=== PATIENT | male | born 1945 | race Caucasian/White ===

== ENCOUNTER → 2016-06-29 11:25 | Outpatient (CLI) | payer BC, MEDICARE ==
[2016-04-09 07:15] VITALS: BMI 26.0
[~2016-06-29 11:25] MED LIST: AMBIEN10 MG PO; ASPIRIN325 MG PO; BETAPACE 80 MG80 MG PO; CELEBREX200 MG PO; CRESTOR10 MG PO; ELIQUIS2.5 MG PO; FISH OIL 1,0001 CA1 PO; FLOMAX0.4 MG PO; HALCION0.25 MG PO; LASIX INJ40 MG/4 ML PO; LASIX40 MG PO; LISINOPRIL5 MG PO; LOPRESSOR25 MG PO; LYRICA75 MG PO; MULTAQ400 MG PO; MULTIPLE VITAMI1 TA1 PO; NEURONTIN 300300 MG PO; NEURONTIN600 MG PO; NIASPAN500 MG PO; OMNICEF300 MG PO; OXY IR30 MG PO; OXYCONTIN20 MG PO; PLAVIX75 MG PO; PROAIR HFA8.5 GM INH; TRIAMTERENE-HCT1 TA1 PO; VESICARE5 MG PO; ZITHROMAX 500M500 MG PO; ZITHROMAX500 MG PO
== END | disposition home or self-care (01) ==
LOC: D.RAD 11:25
DX: R06.02 Shortness of breath (principal)

== ENCOUNTER 2016-07-16 11:26 | Outpatient (CLI) | payer BC, MEDICARE ==
[~2016-07-16] VITALS: Ht 198.1 cm; Wt 100.0 kg
--- NOTE | ~2016-07-16 | HEMODYNAMI ---
PATIENT:NOMI ANGELA MEDICAL RECORD: [id number] : 49 [id number] ADMISSION DATE: 07/16/16 Generatedon:07/17/201614:04 Patient name: NOMI ANGELA Patient #: [id number] SSN: [id number] : 1945 Date of study: 07/17/2016 Page: Of Hemodynamic Procedure Report Patient Data Patient Demographics Procedure consent was obtained First Name: NOMI Gender: Male Last Name: COREEN : 1945 Middle Initial: W Age: 71 year(s) Patient #: [id number] Race: SSN: [id number] Additional ID: [id number] Contact details [address]: [address] [place] [address] [address] State: [place] City: [place] Zip code: [address] Past Medical History History of disease Date Diagnosis Comments CAD Allergies Allergen Reaction Date Comments Reported Other allergy 01/03/2015 Daisy Rocha Admission Admission Data Admission Date: 07/16/2016 Admission Time: 11:26 Arrival Date: 07/16/2016 Arrival Time: 0:00 Admit Source: Other Room #: [facility]9 Height (in.): 78 BSA: 2.39 (m2) Height (cm.): 198.12 BMI: 26.35 (kg/m2) Weight (lbs.): 228 Weight (kg.): 103.42 Procedure Procedure Types Cath Procedure Diagnostic Procedure Procedure Description Procedure Date Procedure Date: 07/17/2016 Procedure Start Time: 0:00 Procedure Staff Name Function Gabe Aiken MD Performing Physician Tyson Aviles RT Scrub Dora Elizabeth RN Nurse Elizabeth Bolanos RT Monitor Rigo Joseph MD Performing Physician Procedure Medications Medication Administration Route Dosage Ancef (1Gm/50ml NS) I.V.P.B 1 g Hemodynamics Rest BSA: 2.39 (m2) O2 Consumption: Estimated: 276.77 (ml/min) O2 Consumption indexed : Estimated:115.8 (ml/min/m) Heart Rate: 70 (bpm) Snapshots Pre Cath Intra NCS Post Cath Vital Signs Time Heart Resp SPO2 NIBP Rhythm Pain Sedation Rate (ipm) (%) (mmHg) Status Level (bpm) 13:36:36 89 21 99 No Cuff NSR 0 (11) , 10(A) No pain 13:40:36 119 14 99 No Cuff NSR 0 (11) , 10(A) No pain 13:44:35 53 14 97 No Cuff NSR 0 (11) , 10(A) No pain 13:48:35 69 12 96 No Cuff NSR 0 (11) , 10(A) No pain 13:52:34 No Cuff NSR 0 (11) , 10(A) No pain 13:56:34 No Cuff NSR 0 (11) , 10(A) No pain 14:00:34 No Cuff NSR 0 (11) , 10(A) No pain Medications Time Medication Route Dose Verified Delivered Reason Notes Effective ness by by 13:43:30 Ancef I.V.P.B 1 g Gabe John used for (1Gm/50ml [facility] Ruben Elizabeth building contractor NS) Procedure Log Time Note 13:15:34 Procedure type changed to Cath procedure, Diagnostic procedure 13:15:43 Diagnostic Cath Status : Elective 13:16:41 Elizabeth Bolanos RT(R) sent for patient. Start room use. 13:16:43 Time tracking: Regular hours 13:16:48 Plan of Care:Hemodynamics will remain stable., Cardiac rhythm will remain stable., Comfort level will be maintained., Respiratory function will remain adequate., Patient/ family verbilizes understanding of procedure., Procedure tolerated without complication., Recovers from procedure without complications.. 13:16:58 Patient received from Med II to CCL 3 Alert and oriented. Tansferred to table in Supine position. 13:17:09 H&P Date Dictated: 07/17/2016 Within 30 days and on chart.. 13:17:31 Use device set Pacemaker Set 13:17:35 Mepilex Dressing opened to sterile field. 13:17:36 2.0 Ticron Multipack opened to sterile field. 13:17:36 3.0 Vicryl Multipack [id number] opened to sterile field. 13:17:37 3.0 Vicryl Single Pack [id number] opened to sterile field. 13:17:38 5.0 Monocryl PS2 Y495G opened to sterile field. 13:35:40 Warm blankets applied, and anuel hugger turned on for patient comfort. 13:35:41 Correct patient and procedure confirmed by team. 13:35:43 Signed procedure consent form obtained from patient. 13:35:44 ECG and BP/O2 sat monitors applied to patient. 13:35:45 Vital chart was started 13:35:47 Baseline sample Acquired. 13:35:50 Full Disclosure recording started 13:35:56 Family in waiting room. 13:35:58 Patient NPO since Midnight. 13:36:12 Is patient on blood thinner?No 13:37:24 Patient diabetic? No. 13:37:28 Snore? No 13:37:29 Sleep apnea? No 13:37:31 Deviated septum? No 13:37:33 Opens mouth fully? Yes 13:37:33 Sticks out tongue? Yes 13:37:39 Dentures? No ? 13:37:52 IV patent on arrival in left hand with 0.9% NaCl at [facility]. 13:38:02 Lab results completed and on chart. 13:38:11 Left chest area was prepped with chlora-prep and draped in sterile fashion 13:38:13 Alarms reviewed by R. N. 13:38:14 Sharps counted by scrub and verified by R.N. 13:38:15 Physician paged 13:43:30 Ancef (1Gm/50ml NS) 1 g I.V.P.B was administered by Dora Elizabeth RN; used for procedure; 13:52:08 Physician arrived 13:52:09 --------ALL STOP TIME OUT------ 13:52:11 Final Timeout: patient, procedure, and site verified with staff and physician. All members of the team are in agreement. 13:53:04 The patient's pacemaker was analyzed and the atrial lead was found to be working correctly. 13:54:[address] Aiken 13:56:44 Procedure and supply charges have been captured, reviewed, submitted and are correct. 14:00:27 Vital chart was stopped 14:00:29 See physician's report for complete and final results. 14:00:32 Report given to PCU. 14:00:37 Patient transfered to PCU with Bed. 14:00:44 End room use (Document Last) Device Usage Item Name Manufacture Quantity Catalog Hospital Part Current Minimal Lo t# / Number Charge Number Stock Stock Serial# Code Adryan Rahman 1 [id number] 5 Dressing [facility] 2.0 Ethicon 1 [id number] 026430 83867 045110 5 Ticron Multipack 3.0 Ethicon 1 [id number] 287231 506712 5 Vicryl Multipack [id number] 3.0 Ethicon 1 [id number] 674497 482667 5 Vicryl Single Pack [id number] 5.0 Ethicon 1 Y495G 062138 151986 754956 5 Monocryl PS2 Y495G Signature Audit [place] Stage Time Signature Unsigned Intra-Procedure 07/17/2016 Elizabeth Bolanos 2:04:41 PM RT(R) Signatures Monitor : Elizabeth Bolanos Signature : RT Date : Time : [place] [id number] [place] [id number]
--- NOTE | ~2016-07-16 | HEMODYNAMI ---
PATIENT:NOMI ANGELA MEDICAL RECORD: [id number] : 49 LOCATION:D.CAT ADMISSION DATE: 07/16/16 Generatedon:07/16/201615:24 Patient name: NOMI ANGELA Patient #: [id number] : 1945 Date of study: 07/16/2016 Page: Of Hemodynamic Procedure Report Patient Data Patient Demographics Procedure consent was obtained First Name: NOMI Gender: Male Last Name: COREEN : 1945 Middle Initial: W Age: 71 year(s) Patient #: [id number] Race: SSN: [id number] Additional ID: [id number] Contact details Address: [address] [place] [address] [address] State: [place] City: [place] Zip code: [address] Past Medical History History of disease Date Diagnosis Comments CAD Allergies Allergen Reaction Date Comments Reported Other allergy 01/03/2015 Daisy Rocha Admission Admission Data Admission Date: 07/16/2016 Admission Time: 11:26 Arrival Date: 07/16/2016 Arrival Time: 0:00 Admit Source: Other Height (in.): 78 BSA: 2.39 (m2) Height (cm.): 198.12 BMI: 26.35 (kg/m2) Weight (lbs.): 228 Weight (kg.): 103.42 Procedure Procedure Types Cath Procedure Diagnostic Procedure PPM/ICD PPM Dual Implant Procedure Description Procedure Date Procedure Date: 07/16/2016 Procedure Start Time: 14:48 Procedure End Time: 15:16 Procedure Staff Name Function Jorgito Murray RT Scrub Jazmin Ervin RT Scrub Dora Elizabeth RN Nurse Rigo Joseph MD Assisting physician Gabe Aiken MD Performing Physician Elizabeth Bolanos RT Monitor Procedure Data Cath Procedure Fluoroscopy Diagnostic fluoroscopy Total fluoroscopy Time: 1.5 time: 1.5 min min Diagnostic fluoroscopy Total fluoroscopy dose: 855 dose: 855 mGy mGy Estimated blood loss: 10 ml Procedure Complications No complications Procedure Medications Medication Administration Route Dosage Oxygen NC 2 l/min Ancef (1Gm/50ml NS) I.V.P.B 1 g Ancef Irrigation Topical 1 g (1gm/500ml NS) Lidocaine 1% with added to field 20 ml Epi Bupivacaine 0.5% S.Q. 10 ml Refer to Anesthesia Notes for Sedation Medications Hemodynamics Rest BSA: 2.39 (m2) O2 Consumption: Estimated: 259.85 (ml/min) O2 Consumption indexed : Estimated:108.72 (ml/min/m) Heart Rate: 51 (bpm) Snapshots Pre Cath Intra NCS Post Cath Vital Signs Time Heart Resp SPO2 etCO2 TA3saca Respiration NIBP (mmHg) Rhythm Pain Sedation Rate (ipm) (%) (mmHg) (mmHg) (CO2) (ipm) Status Level (bpm) 14:18:21 51 24 100 26 1.4 19 135/73(107) SB 0 (1 1) 10(A) , No pain 14:22:35 50 18 97 0 0 15 113/66(91) SB 0 (1 1) 10(A) , No pain 14:26:45 49 19 95 45.3 2.2 19 102/57(86) SB 0 (1 1) 9(A) , No pain 14:30:51 48 16 96 53.4 3.7 19 96/52(77) SB 0 (1 1) 9(A) , No pain 14:34:55 50 16 95 52.7 2.9 16 90/55(77) SB 0 (1 1) 9(A) , No pain 14:38:59 52 27 92 53.4 3.7 19 92/47(74) NSR 0 (1 1) 9(A) , No pain 14:43:02 49 48 96 43.8 5.2 18 89/49(68) NSR 0 (1 1) 9(A) , No pain 14:47:04 46 44 95 42.3 2.9 17 87/51(70) NSR 0 (1 1) 8(A) , No pain 14:52:01 46 17 96 45.3 11.8 17 115/68(97) NSR 0 (1 1) 8(A) , No pain 14:56:05 51 48 99 20.8 2.9 18 135/75(114) NSR 0 (1 1) 8(A) , No pain 15:00:12 89 39 99 19.3 2.9 18 118/85(95) NSR 0 (1 1) 8(A) , No pain 15:04:20 50 32 99 19.3 2.2 18 112/64(91) NSR 0 (1 1) 8(A) , No pain 15:08:26 67 18 99 20.7 2.2 18 119/67(93) NSR 0 (1 1) 8(A) , No pain 15:12:36 59 16 93 45.2 9.6 17 110/63(87) NSR 0 (1 1) 8(A) , No pain 15:16:42 60 14 98 25.9 2.2 18 112/64(88) NSR 0 (1 1) 10(A) , No pain 15:23:29 74 18 96 30.4 2.2 16 108/70(92) NSR 0 (1 1) 10(A) , No pain Medications Time Medication Route Dose Verified Delivered Reason Notes Effe ctiveness by by 14:15:37 Oxygen NC 2 Gabe John used for prn to l/min [facility] Ruben Elizabeth manager special events keep MD oxygen saturation above 92%. o2 will be turned off for cautery usage. 14:15:41 Ancef I.V.P.B 1 g Gabe John used for (1Gm/50ml [facility] Rub[facility] Elizabeth manager special events NS) 14:17:52 Ancef Topical 1 g Gabe John used for Irrigation [facility]. Ruben Elizabeth manager special events (1gm/500ml NS) 14:18:22 Lidocaine added 20 ml Gabe Sierra for local 1% with Epi to [facility]. Ruben Joseph MD anesthetic field 14:18:38 Bupivacaine S.Q. 10 ml Gabe Sierra for local 0.5% St. Ruben Joseph MD anesthetic 14:18:49 Refer to Gabe Anthony Anesthesia [facility]. Ruben Joseph MD anesthesia Notes for MD Sedation Medications Procedure Log Time Note 13:50:53 Admit Source: Other 13:51:02 Arrival Date: 07/16/2016 12:00:00 AM 13:51:29 Diagnostic Cath Status : Elective 13:52:50 Dora Elizabeth RN sent for patient. Start room use. 13:52:52 Time tracking: Regular hours 13:52:58 Plan of Care:Hemodynamics will remain stable., Cardiac rhythm will remain stable., Comfort level will be maintained., Respiratory function will remain adequate., Patient/ family verbilizes understanding of procedure., Procedure tolerated without complication., Recovers from procedure without complications.. 13:54:10 Use device set Pacemaker Set 14:10:54 Patient received from Pre/Post Procedure Room to [facility] 1 Alert and oriented. Tansferred to table in Supine position. 14:10:56 Warm blankets applied, and anuel hugger turned on for patient comfort. 14:10:56 Correct patient and procedure confirmed by team. 14:10:57 Signed procedure consent form obtained from patient. 14:10:58 ECG and BP/O2 sat monitors applied to patient. 14:15:37 Oxygen 2 l/min NC was administered by Dora Elizabeth RN; used for procedure; prn to keep oxygen saturation above 92%. o2 will be turned off for cautery usage. 14:15:41 Ancef (1Gm/50ml NS) 1 g I.V.P.B was administered by Dora Elizabeth RN; used for procedure; 14:17:08 Vital chart was started 14:17:52 Ancef Irrigation (1gm/500ml NS) 1 g Topical was administered by Dora Elizabeth RN; used for procedure; 14:18:22 Lidocaine 1% with Epi 20 ml added to field was administered by Rigo Joseph MD; for local anesthetic; 14:18:38 Bupivacaine 0.5% 10 ml S.Q. was administered by Rigo Joseph MD; for local anesthetic; 14:18:49 Refer to Anesthesia Notes for Sedation Medications was administered by Rigo Joseph MD; ; Dr. Anthony anesthesia 14:20:25 Baseline sample Acquired. 14:20:30 Rhythm: sinus rhythm 14:20:34 Full Disclosure recording started 14:20:46 H&P Date Dictated: 07/13/2016 Within 30 days and on chart., H&P Addendum completed by physician on day of procedure. (MUST COMPLETE FOR ALL OUTPATIENTS). 14:20:49 Pre-procedure instructions explained to patient. 14:20:51 Family in waiting room. 14:20:53 Patient NPO since Midnight. 14:21:09 Is patient on blood thinner?No 14:21:11 Patient diabetic? No. 14:21:15 Snore? No 14:21:16 Sleep apnea? No 14:21:21 Dentures? No ? 14:21:33 IV patent on arrival in left forearm with 0.9% NaCl at [facility]. 14:21:47 Left chest area was prepped with chlora-prep and draped in sterile fashion 14:22:03 Alarms reviewed by R. N. 14:22:04 Sharps counted by scrub and verified by R.N. 14::06 Physician paged 14:27: Physician arrived 14:: --------ALL STOP TIME OUT------ 14::23 Final Timeout: patient, procedure, and site verified with staff and physician. All members of the team are in agreement. 14:27:45 Left chest site verified by team. 14:27:51 Physical assessment completed. ASA score P 2 - A patient with mild systemic disease as per Gabe Aiken MD. 14:27:57 Sedation plan: TIVA Propofol 14:29:52 Patient Height : 78 cm 14:30:00 Patient Weight : 228 kg 14:31:02 2.0 Ticron Multipack opened to sterile field. 14:31:03 3.0 Vicryl Multipack [id number] opened to sterile field. 14:31:04 3.0 Vicryl Single Pack [id number] opened to sterile field. 14:31:05 5.0 Monocryl PS2 Y495G opened to sterile field. 14:31:06 Mepilex Dressing opened to sterile field. 14:34:32 Medtronic 4574-53 PPM Lead opened to sterile field. 14:34:33 Medtronic 4074-58 PPM Lead opened to sterile field. 14:34:33 Medtronic Advisa MRI PPM Dual Generator opened to sterile field. 14:48:14 Procedure started. 14:48:31 Medtronic sales representative business courses Bharathi present for procedure. 14:48:40 Grounding pad site Left thigh. 14:48:45 Grounding pad site free from injury. 14:48:53 Lidocaine 1% w/epi to left subclavicular area by Rigo Joseph MD. 14:48:55 Incision made to left subclavicular area. 14:48:58 Generator pocket made/opened. 14:52:16 Left subclavian vein accessed with 7Fr Safe Sheath. 14:52:26 Ventricular lead inserted and advanced. 14:54:59 Left subclavian vein accessed with 7Fr Safe Sheath. 14:55:05 Atrial lead inserted and advanced. 14:56:17 Ventricular lead tested. 14:57:50 Atrial lead tested. 14:58:08 Peel-a-way sheath was split and removed. 14:58:29 PPM Dual was attached to lead(s) and inserted into pocket. 14:58:40 PPM Dual was inserted subcutaneously to left chest. 14:58:49 Device pocket was irrigated with Ancef. 15:03:30 Generator was sutured in place with 2-0 silk. 15:04:42 Generator was sutured in place with 3-0 vicryl plus. 15:04:50 Generator was sutured in place with 5-0 monocryl. 15:07:40 Parameters-- Generator: Mode: ?. Lower Rate: ?bpm. Upper Rate: ?bpm. 15:09:22 Parameters-- Generator: Mode: AAIR<=>DDDR. Lower Rate: 60bpm. Upper Rate: 130bpm. 15:10:20 Parameters--Ventricular P/R Wave: 7.5mV. Current: .3mA; Threshold: .3V; Impedence: 1.8OHMS. 15:11:30 Parameters--Atrial P/R Wave: 4.7mV. Current: ?mA; Threshold: .5V; Impedence: .3OHMS. 15:11:41 Lt Chest incision was dressed with Mepilex dressing. 15:13:09 Immobilizer Large opened to sterile field. 15:13:20 Procedure ended.(Physican Out) 15:14:16 Fluoroscopy time 01.50 minutes. 15:14:39 Fluoroscopy dose: 855 mGy 15:14:39 Flurop Dose total: 855 15:14:48 Sharps counted by scrub and verified by R.N. 15:14:52 Insertion/operative site no bleeding no hematoma. 15:14:58 Post-op/insertion site Left Subclavian vein dressed using a Mepilex dressing. 15:15:05 Post Procedure Pulses reassessed and unchanged 15:15:11 Post-procedure physical assessment completed. ASA score P 2 - A patient with mild systemic disease as per Gabe [place] MD. 15:15:17 Post procedure rhythm: paced 15:15:21 Estimated blood loss: 10 ml 15:15:23 Post procedure instruction explained to patient.Patient verbalizes understanding. 15:15:33 Procedure and supply charges have been captured, reviewed, submitted and are correct. 15:15:55 Procedure Complication : No complications 15:16:05 Vital chart was stopped 15:16:06 See physician's report for complete and final results. 15:16:[address] [facility]. 15:16:[address] [facility] with Bed. 15:16:16 Procedure ended. 15:16:16 Full Disclosure recording stopped 15:16:19 End room use (Document Last) Device Usage Item Name Manufacture Quantity Catalog Hospital Part Current Minimal Lot# / Serial# Number Charge Number Stock Stock Code 2.0 Ticron Ethicon 9 [id number] 674295 00374 363359 5 Multipack 3.0 Vicryl Ethicon 1 [id number] 606199 837791 166382 5 Multipack [id number] 3.0 Vicryl Ethicon 1 [id number] 836728 519793 120362 5 Single Pack [id number] 5.0 Ethicon 1 Y495G 425231 657332 283040 5 Monocryl PS2 Y495G Mepilex Cardinal 1 339573 276984 000914 324647 5 [facility] Medtronic Medtronic 1 4574-53 941465 039754 5 4574-53 PPM [id number]/ex6/4 Lead /2017 Medtronic Medtronic 1 4074-58 068566 853755 5 4074-58 PPM [id number]/exp.1 Lead Medtronic Medtronic 1 [id number] 020406 616296 5 Advisa MRI [id number]/exp.0 PPM Dual 12/31/2016 Generator Immobilizer Cardinal 1 [id number] 050552 597840 835334 5 [facility] Signature Audit [place] Stage Time Signature Unsigned Intra-Procedure 07/16/2016 Elizabeth Bolanos 3:24:12 PM RT(R) Signatures Monitor : Elizabeth Bolanos Signature : RT Date : Time : [place] [address] [place] [address]
[~2016-07-16 11:26] MED LIST changes: -PROAIR HFA8.5 GM INH
[2016-07-16] MEDS ORDERED: PROAIR HFA8.5 GM INH (11:58)
[2016-07-16 12:19] LABS: HEMATOCRIT 34.9 % (42.0-54.0); HEMOGLOBIN 12.1 g/dL (13.5-17.5); MCH 33.1 pg (26.0-34.0); MCHC 34.7 g/dL (31.0-37.0); MCV 95.4 fL (80.0-100.0); MEAN PLATELET VOLUME 8.8 fL (7.4-10.4); RBC 3.66 10x6/uL (4.20-6.10); RDW 13.7 % (11.5-14.5); WBC 6.7 10x3/uL (4.8-10.8)
[2016-07-16 12:22] VITALS: BP 121/64; BMI 25.4
[2016-07-16 12:30] LABS: APTT 30.9 SECONDS (22.8-39.4); INR 1.06 (0.85-1.17); PROTIME 13.7 SECONDS (11.6-15.0)
[2016-07-16 12:31] LABS: ANION GAP 13.6 mmol/L (8-16); CALCIUM 8.4 mg/dL (8.5-10.1); CARBON DIOXIDE 27.8 mmol/L (21.0-32.0); CREATININE - SERUM 1.2 mg/dL (0.6-1.3); POTASSIUM - SERUM 4.4 mmol/L (3.5-5.1)
[2016-07-16 16:11] VITALS: BP 133/66; Ht 198.1 cm; Wt 100.0 kg
--- NOTE | 2016-07-16 16:26 | NUR ---
PATIENT ARRIVED FROM HEAD ATHLETIC TRAINER POST PACEMAKER INSERTION. AWAKE RESP WITH EASE. PULSE COUNTED FOR A FULL MINUTE AND IT IS 52 APICALLY. MONITOR SHOWS SINUS BRADYCARDIA WITH PACEMAKER FIRING POST T WAVE. DR. LUTZ NOTIFIED. WILL CONTINUE TO MONITOR
--- NOTE | 2016-07-16 16:57 | NUR ---
[facility]AL[facility] HERE WITH [employer]. ATRIAL WIRE FIRING INTERMITENTLY. PULSE RATE IS 52. DR. MALIK NOTIFIED BY [facility] AND ORDERS RECEIVED. PATIENT TO BE WATCHED TONIGHT AND MAY GO BACK TO PHOTONICS ENGINEER IN THE AM.PATIENT TO BE NPO AFTER MN.
[2016-07-16] MEDS ORDERED: PLAVIX75 MG PO (17:06)
--- NOTE | 2016-07-16 19:29 | NUR ---
RESUMED CARE OF PT, LYING IN BED WITH EYES CLOSED RESPIRATIONS EVEN AND UNLABORED ON ROOM AIR. 65 PACED ON TELEMETRY. LEFT AC SALINE LOCKED. LEFT CHEST INCISION WNL AND LEFT ARM SLING INTACT. NO NEEDS NOTED AT THIS TIME. CALL LIGHT IN REACH. WILL CONTINUE TO MONITOR. SEE NURSE ASSESSMENT.
[2016-07-16 21:33] VITALS: BP 106/65
[2016-07-17 01:06] VITALS: BP 91/60
--- NOTE | 2016-07-17 05:17 | NUR ---
CLOCK AND WATCH ASSEMBLER AT BEDSIDE TO OBTAIN VITALS, CALL LIGHT IN REACH. WILL CONTINUE WITH PLAN OF CARE.
[2016-07-17 05:24] VITALS: BP 106/65
--- NOTE | 2016-07-17 07:30 | NUR ---
RECEIVED PT IN BED AAOX4 RESP UNLABORED SKIN W/D COLOR WNL DENIES ANY NEEDS OR DISCOMFORT NAD NOTED LT ARM IN SLING OCCLUSIVE DRSG C/D/I TO LT CHEST PACEMAKER
[2016-07-17 08:31] VITALS: BP 101/51
--- NOTE | 2016-07-17 13:21 | OP ---
PATIENT NAME: NOMI ANGELA MEDICAL RECORD: [id number] :49 LOCATION:D. D.2119 ADMISSION DATE: SURGEON: RIGO SAMUELS MD DATE OF OPERATION: 07/16/2016 PREOPERATIVE DIAGNOSIS: Sick sinus syndrome. POSTOPERATIVE DIAGNOSIS: Sick sinus syndrome. PROCEDURE: Pacemaker placement with fluoroscopic interpretation. SURGEON: Rigo Samuels MD. CO-SURGEON: Gabe Aiken MD. REPORT OF OPERATION: The patient's left chest was prepped and draped in sterile fashion. A total of 20 cc of 1% lidocaine was infused into the subcutaneous tissues. A skin incision was made on the left lateral superior chest and a subcutaneous pouch was made overlying the pectoral fascia. The left subclavian vein was cannulated with 2 separate sticks and guidewires were advanced with ease. Fluoro was used to note that the wires were in good position in the venous system. Dilator trocar devices were placed over the wire and the wires and dilators were removed. The leads were inserted through the trocars. At this point, Dr. Aiken positioned the leads into the atrium and ventricle appropriately and once we tested out correctly, then these leads were sutured into place with 0 Ti-Cron. These were then affixed to the pacemaker and the pacemaker was inserted into the subcutaneous pouch. This was sutured to the pectoral fascia using an interrupted 0 Ti-Cron. The subcutaneous tissues were irrigated out with antibiotic solution and then reapproximated with interrupted 3-0 Vicryls. The skin was closed with running subcutaneous 5-0 Monocryl and dressed appropriately. COMPLICATIONS: None. CONDITION: Stable. ANESTHESIA: TIVA and local. BLOOD LOSS: Minimal. TRANSINT:[id number] Voice Confirmation ID: [id number] DOCUMENT ID: [id number] RIGO SAMUELS MD at 1321 CC: GABE LUTZ MD [id number] DICTATION DATE: 07/16/16 1528 FINANCIAL ACCOUNTING ANALYST: 07/16/16 2237 [facility] [address] [place] [address]
--- NOTE | 2016-07-17 16:00 | NUR ---
STAFF CALL TO PT ROOM SALINE LOCK TO LAC BLEEDING FROM EXTENSION TUBING CAP LOCK CAME OFF AND STOP COCK WAS OPEN TORNED STOP COCK TURNED OFF SALINE LOCK ROXANNE WILLSON APPLIED SECURED WITH TAPE CLEANSED ARM AND SLING ORDERED NEW SLING FOR PT TOLERATED WELL
--- NOTE | 2016-07-17 16:30 | NUR ---
REVIEWED DISCHARGE INSRUCTIONS WITH PT AND STATES UNDERSTANDING COPY GIVEN NEW SLING GIVEN TO PT DISCHARGED HOME LEFT UNIT WALKING WITH IN STABLE CONDITION ALL PERSONAL BELONGINGS WITH THEM
--- NOTE | 2016-07-21 08:56 | OP ---
PATIENT NAME: NOMI REDMOND MEDICAL RECORD: [id number] :49 LOCATION:D.CAT ADMISSION DATE: SURGEON: CHAYITO LUTZ MD DATE OF OPERATION: 07/16/2016 PROCEDURE: Lead portion of permanent pacemaker placement. INDICATION: Sick sinus syndrome with bradyarrhythmias. SURGEON: Dr. Rigo Joseph. DESCRIPTION OF PROCEDURE: After left subclavian was cannulated via modified Seldinger technique via Dr. Joseph, first under fluoroscopic guidance, I placed the RV lead in the RV apex without difficulty. After R waves and thresholds were obtained, again, on fluoroscopic guidance, I then placed the right atrial lead in the right atrial appendage without difficulty. After adequate thresholds and P waves were obtained, the leads were attached to appropriate poles of the generator and the pocket was closed via Dr. Joseph. IMPRESSION: Successful lead portion of permanent pacemaker placement on Nomi Redmond. COMPLICATIONS: None. ESTIMATED BLOOD LOSS: Minimal. DISPOSITION: To the floor, stable. TRANSINT:[id number] Voice Confirmation ID: [id number] DOCUMENT ID: [id number] CHAYITO LUTZ MD at 0856 CC: [id number] DICTATION DATE: 07/16/16 [address] OPERATOR: 07/16/16 2231 [facility] CLI 07/17/[address] [address]
== END 2016-07-17 16:30 | disposition home or self-care (01) ==
LOC: OBSVTIME → D.M2 11:26 → D.CATH 11:26 → D.M2 15:58 → D.CATH 07-17 00:03 → D.M2 07-17 00:03 → OBSVTIME 07-17 00:04 → D.CATH 07-17 00:04 → D.M2 07-17 00:04 → D.CATH 07-17 16:30
PROVIDERS: Internal Medicine Interventional Cardiology
DX: I49.5 Sick sinus syndrome (principal)

== ENCOUNTER → 2016-08-21 09:44 | Outpatient (CLI) | payer BC, MEDICARE ==
[2016-07-16 16:11] VITALS: BMI 25.4
[~2016-08-21 09:44] MED LIST changes: +PROAIR HFA8.5 GM INH
== END | disposition home or self-care (01) ==
LOC: D.RT 09:44
DX: R06.02 Shortness of breath (principal)

== ENCOUNTER → 2016-11-05 06:42 | Outpatient (CLI) | payer BC, MEDICARE ==
[~2016-11-05] VITALS: Ht 198.1 cm; Wt 103.6 kg
--- NOTE | ~2016-11-05 | HEMODYNAMI ---
PATIENT:NOMI ANGELA MEDICAL RECORD: [id number] : 49 LOCATION:[facility] ADMISSION DATE: 11/05/16 Generatedon:11/05/201610:00 Patient name: NOMI ANGELA Patient #: [id number] : 1945 Date of study: 11/05/2016 Page: Of Hemodynamic Procedure Report Patient Data Patient Demographics Procedure consent was obtained First Name: NOMI Gender: Male Last Name: COREEN : 1945 Middle Initial: W Age: 71 year(s) Patient #: [id number] Race: SSN: [id number] Additional ID: [id number] Contact details Address: [address] [place] [address] [address] State: [place] City: [place] Zip code: [address] Past Medical History History of disease Date Diagnosis Comments CAD Allergies Allergen Reaction Date Comments Reported Other allergy 01/03/2015 Benadryl, Nyquil Other allergy 11/05/2016 benadryl. Admission Admission Data Admission Date: 11/05/2016 Admission Time: 6:42 Admit Source: Other Lab Results Lab Result Date: 11/05/2016 Lab Result Time: 7:10 Biochemistry Name Units Result Min Max BUN mg/dl 24 --(----)-* 7 18 Creatinine mg/dl 1.3 --(---*)-- 0.6 1.3 CBC Name Units Result Min Max Hematocrit % 36.6 *-(----)-- 42 54 Hemoglobin g/dl 12.7 -*(----)-- 13.5 17.5 Procedure Procedure Types Cath Procedure Diagnostic Procedure [facility] w/Coronaries PCI Procedure PTCA Initial Miscellaneous Procedures Moderate Sedation up to 45 minutes Procedure Description Procedure Date Procedure Date: 11/05/2016 Procedure Start Time: 9:02 Procedure End Time: 9:59 Procedure Staff Name Function George Hdz MD Performing Physician Jorgito Murray RT Scrub [place] Jiménez RN Nurse Tyson Aviles RT Monitor Procedure Data Cath Procedure Fluoroscopy Diagnostic fluoroscopy Total fluoroscopy Time: time: 16.5 min 16.5 min Diagnostic fluoroscopy Total fluoroscopy dose: dose: 2005 mGy 2005 mGy Contrast Material Contrast Material Type Amount (ml) Isovue 300 203 Entry Location Entry Primary Successful Side Size Upsize Upsize Entry Closure Vicente ccessful Closure Location (Fr) 1 (Fr) 2 (Fr) Remarks Device Remarks Radial Right 6 Fr Mechanical artery Short Compression Estimated blood loss: 10 ml Diagnostic catheters Device Type Used For End Catheter Placement Terumo 5Fr Oleg 110cm Procedure catheter Procedure Complications No complications Procedure Medications Medication Administration Route Dosage Oxygen NC 2 l/min Heparin Flush Bag added to field 2 bags (1000units/500ml NS) 0.9% NaCl I.V. 100 ml/hr Radial Cocktail added to field 1 syringe (Verapomil 2mg/Nitro 400mcg/Heparin 1500units) Fentanyl I.V. 50 mcg Versed I.V. 1 mg Radial Cocktail I.A. 1 syringe (Verapomil 2mg/Nitro 400mcg/Heparin 1500units) Fentanyl I.V. 50 mcg Versed I.V. 1 mg Heparin Bolus I.V. 94428 units Fentanyl I.V. 50 mcg Fentanyl I.V. 50 mcg Versed I.V. 1 mg Versed I.V. 1 mg Fentanyl I.V. 50 mcg Hemodynamics Rest HGB: 12.7 (g/dl) Heart Rate: 78 (bpm) Pressure Samples Time Site Value (mmHg) Purpose Heart Use Rate(bpm) 9:07 LV 66/-9,0 Snapshot 62 9:07 LV 72/-2,1 Snapshot 83 9:08 AO 63/37(44) Pullback 68 9:08 LV 77/-4,7 Pullback 68 Gradients Valve Time Site 1 Site 2 Mean SEP/DFP Peak To Heart Use (mmHg) (sec/min) Peak Rate (mmHg) (bpm) Aortic 9:08 LV AO 17 10 14 68 77/-4,7 63/37(44) Calculations Valve P-P Mean Valve Index Valve Source Name Gradient Area Flow (cm2) Aortic 14 17 14 17 Snapshots Pre Cath Intra NCS Post Cath Vital Signs Time Heart Resp SPO2 NIBP (mmHg) Rhythm Pain Sedation Rate (ipm) (%) Status Level (bpm) 8:48:54 66 18 100 135/89(110) NSR 0 (11) 10(A) , No pain 8:53:07 70 20 98 120/76(94) NSR 0 (11) 10(A) , No pain 8:57:19 68 16 96 110/67(80) NSR 0 (11) 10(A) , No pain 9:01:29 66 17 99 102/60(83) NSR 0 (11) 9(A) , No pain 9:05:35 64 19 96 101/60(73) NSR 0 (11) 9(A) , No pain 9:09:41 62 17 98 80/48(66) NSR 0 (11) 9(A) , No pain 9:13:42 64 17 98 82/49(62) NSR 0 (11) 9(A) , No pain 9:17:46 62 19 99 84/45(73) NSR 0 (11) 9(A) , No pain 9:21:48 66 19 100 88/55(67) NSR 0 (11) 9(A) , No pain 9:25:48 66 18 100 107/62(79) NSR 0 (11) 9(A) , No pain 9:29:51 64 18 98 115/71(91) NSR 0 (11) 9(A) , No pain 9:33:59 66 18 98 119/69(94) NSR 0 (11) 9(A) , No pain 9:38:07 67 16 99 119/77(87) NSR 0 (11) 9(A) , No pain 9:42:19 68 17 93 118/63(86) NSR 0 (11) 9(A) , No pain 9:46:31 64 18 92 97/50(78) NSR 0 (11) 9(A) , No pain 9:50:39 62 18 97 87/50(74) NSR 0 (11) 9(A) , No pain 9:54:43 65 16 98 89/50(73) NSR 0 (11) 9(A) , No pain 9:57:49 61 16 96 89/57(78) NSR 0 (11) 9(A) , No pain Medications Time Medication Route Dose Verified Delivered Reason Notes Effectiveness by by 8:51:44 Oxygen NC 2 l/min [place] Per physician Tino Jiménez RN RN 8:51:52 Heparin Flush added 2 bags [place] used for Bag to Tino Jiménez RN procedure (1000units/500ml field RN NS) 8:52:01 0.9% NaCl I.V. 100 [place] Per physician ml/hr Tino Jiménez RN RN 8:52:14 Radial Cocktail added 1 [place] used for (Verapomil to syringe Tino Jiménez RN procedure 2mg/Nitro field RN 400mcg/Heparin 1500units) 8:59:34 Fentanyl I.V. 50 mcg [place] for sedation Tino Jiménez RN RN 8:59:40 Versed I.V. 1 mg [place] for sedation Tino Jiménez RN RN 9:05:30 Radial Cocktail I.A. 1 [place] for (Verapomil syringe Tino Hdz MD vasodilation 2mg/Nitro RN 400mcg/Heparin 1500units) 9:05:35 Fentanyl I.V. 50 mcg [place] for sedation Tino Jiménez RN RN 9:05:42 Versed I.V. 1 mg [place] for sedation Tino Jiménez RN RN 9:12:05 Heparin Bolus I.V. 42485 [place] for units Tino Jiménez RN anticoagulation RN 9:34:13 Fentanyl I.V. 50 mcg [place] for sedation Tino Jiménez RN RN 9:36:26 Fentanyl I.V. 50 mcg [place] for sedation Tino Jiménez RN RN 9:37:50 Versed I.V. 1 mg [place] for sedation Tino Jiménez RN RN 9:39:55 Versed I.V. 1 mg [place] for sedation Tino Jiménez RN RN 9:41:04 Fentanyl I.V. 50 mcg [place] for sedation Tino Jiménez RN guest house manager Log Time Note 8:22:46 Informed consent obtained and on chart 8:23:05 Admit Source: Other 8:23:07 Diagnostic Cath status Elective 8:23:09 [place] Jiménez RN sent for patient. Start room use. 8:23:10 Time tracking: Regular hours 8:23:13 Plan of Care:Hemodynamics will remain stable., Cardiac rhythm will remain stable., Comfort level will be maintained., Respiratory function will remain adequate., Patient/ family verbilizes understanding of procedure., Procedure tolerated without complication., Recovers from procedure without complications.. 8:38:09 Patient received from Pre/Post Procedure Room to CCL 2 Alert and oriented. Tansferred to table in Supine position. 8:38:10 Warm blankets applied, and anuel hugger turned on for patient comfort. 8:38:10 Correct patient and procedure confirmed by team. 8:38:12 ECG and BP/O2 sat monitors applied to patient. 8:47:46 Vital chart was started 8:47:47 Full Disclosure recording started 8:51:44 Oxygen 2 l/min NC was administered by Chico Jiménez RN; Per physician; 8:51:52 Heparin Flush Bag (1000units/500ml NS) 2 bags added to field was administered by Chico Jiménez RN; used for procedure; 8:52:01 0.9% NaCl 100 ml/hr I.V. was administered by Chico Jiménez RN; Per physician; 8:52:14 Radial Cocktail (Verapomil 2mg/Nitro 400mcg/Heparin 1500units) 1 syringe added to field was administered by Chico Jiménez RN; used for procedure; 8:54:03 Baseline sample Acquired. 8:54:15 Rhythm: paced 8:55:12 H&P Date Dictated: 10/21/2016 Within 30 days and on chart., H&P Addendum completed by physician on day of procedure. (MUST COMPLETE FOR ALL OUTPATIENTS). 8:55:13 Pre-procedure instructions explained to patient. 8:55:13 Pre-op teaching completed and patient verbalized understanding. 8:55:18 Family in patients room. 8:55:20 Patient NPO since Midnight. 8:55:30 Patient allergic to Other allergybenadryl. 8:55:32 Is the patient allergic to Iodine/contrast media? No. 8:55:33 Is patient on blood thinner?Yes 8:55:36 ACC The patient was administered the following blood thiners within the last 24 hours: ACCPlavix, Eliquis 8:55:39 Patient diabetic? No. 8:55:51 Previous problem with sedation/anesthesia? No ? 8:55:51 Snore? Yes 8:55:52 Sleep apnea? No 8:55:53 Deviated septum? No 8:55:53 Opens mouth fully? Yes 8:55:54 Sticks out tongue? Yes 8:55:56 Airway obstruction? No ? 8:55:58 Dentures? Yes in tight 8:56:01 Modified Surinder's test Ulnar > 7 seconds. 8:56:04 Patient pain scale 0/10 ?. 8:56:10 IV patent on arrival in left hand with 0.9% NaCl at [facility]. 8:56:35 Lab Result : BUN 24 mg/dl 8:56:35 Lab Result : Creatinine 1.3 mg/dl 8:56:35 Lab Result : Hemoglobin 12.7 g/dl 8:56:35 Lab Result : Hematocrit 36.6 % 8:56:38 Lab results completed and on chart. 8:56:41 Right Radial & Right Groin area was prepped with chlora-prep and draped in sterile fashion 8:56:42 Alarms reviewed by R. N. 8:56:42 Sharps counted by scrub and verified by R.N. 8:56:46 Use device set Radial Dx 8:56:48 MBrace Wrist Support opened to sterile field. 8:56:50 Acist Manifold opened to sterile field. 8:56:50 Tegaderm 4 x 4 opened to sterile field. 8:56:50 Acist Hand Control opened to sterile field. 8:56:52 Acist Syringe opened to sterile field. 8:56:52 Medline Cath Pack opened to sterile field. 8:56:52 Bag Decanter opened to sterile field. 8:56:53 Terumo 6Fr Slender Glidesheath opened to sterile field. 8:56:53 St Jerald 260cm J .035 wire opened to sterile field. 8:57:02 Cook 21G 4cm Radial Needle opened to sterile field. 8:57:08 Physician arrived 8:57:09 --------ALL STOP TIME OUT------ 8:57:09 Final Timeout: patient, procedure, and site verified with staff and physician. All members of the team are in agreement. 8:57:11 Right Radial & Right Groin site verified by team. 8:57:13 Physical assessment completed. ASA score P 2 - A patient with mild systemic disease as per George Hdz MD. 8:57:15 Sedation plan: IV Moderate Sedation Versed, Fentanyl 8:58:31 Zero performed for pressure channel P1 8:59:34 Fentanyl 50 mcg I.V. was administered by Chico Jiménez RN; for sedation; 8:59:40 Versed 1 mg I.V. was administered by Chico Jiménez RN; for sedation; 9:02:19 Procedure started. 9:02:23 Local anesthetic to right radial artery with Lidocaine 2% by George Hdz MD.INITIAL ACCESS ONLY 9:04:42 A 6 Fr Short sheath was inserted into the Right Radial artery 9:05:16 A Green Is Good 5Fr Oleg 110cm catheter was advanced over the wire and used for Procedure. 9:05:30 Radial Cocktail (Verapomil 2mg/Nitro 400mcg/Heparin 1500units) 1 syringe I.A. was administered by George Hdz MD; for vasodilation; 9:05:35 Fentanyl 50 mcg I.V. was administered by Chico Jiménez RN; for sedation; 9:05:42 Versed 1 mg I.V. was administered by Chico Jiménez RN; for sedation; 9:07:00 LV gram done using RALPH 9:07:04 Injector settings: Ml/sec: 5, Volume: 15, 9:07:07 LV hemodynamics recorded. 9:07:51 EF : 45 % 9:08:31 RCA angiography performed. 9:09:08 LCA angiography performed. 9:11:32 High Pressure Extension Tubing (Hdz) opened to sterile field. 9:11:32 Cordis 6FR XBLAD 3.5 guide catheter opened to sterile field. 9:11:33 Merit BasixCompak Inflation Kit opened to sterile field. 9:11:35 Catheter removed. 9:12:05 Heparin Bolus 96154 units I.V. was administered by Chico Jiménez RN; for anticoagulation; 9:13:49 Collazo BMW Bolivar 2 J-tip 300cm 0.014 guide wir opened to sterile field. 9:14:01 6 Fr xblad 3.5 guide catheter was inserted over the wire 9:19:17 Guide Catheter removed. unable to cannulate vessel. 9:19:23 Cordis 6FR XBLAD 4.0 guide catheter opened to sterile field. 9:22:22 BMW wire advanced. 9:23:04 Wire removed. unable to cross lesion. 9:23:10 [place] Sci Luge Straight 300cm 0.014 guide wire opened to sterile field. 9:23:58 LUGE wire advanced. 9:28:30 Wire advanced across lesion. 9:32:39 The Yemi OTW 3.0 x 22 stent was advanced then removed because of failure to cross lesion 9:34:13 Fentanyl 50 mcg I.V. was administered by Chico Jiménez RN; for sedation; 9:34:24 Inflation number: 1 A Euphora 2.5 x 15 Balloon was prepped and advanced across the Prox LAD, then inflated to 11 RALPH for 0:10 (min:sec). 9:36:26 Fentanyl 50 mcg I.V. was administered by Chico Jiménez RN; for sedation; 9:37:50 Versed 1 mg I.V. was administered by Chico Jiménez RN; for sedation; 9:38:36 [place] Sci Luge Straight 300cm 0.014 guide wire opened to sterile field. 9:38:42 LUGE wire advanced. 9:39:23 The Yemi OTW 3.0 x 22 stent was advanced then removed because of failure to cross lesion 9:39:25 LUGE WIRE ADVANCED TO USE A ROSS WIRE. 9:39:55 Versed 1 mg I.V. was administered by Chico Jiménez RN; for sedation; 9:41:04 Fentanyl 50 mcg I.V. was administered by Chico Jiménez RN; for sedation; 9:41:47 [place] Sci Luge Straight 300cm 0.014 guide wire opened to sterile field. 9:41:53 Wire removed. damaged. 9:42:00 LUGE wire advanced. 9:43:02 Wire advanced across lesion. 9:48:05 The Yemi OTW 3.0 x 22 stent was advanced then removed because of failure to cross lesion 9:48:08 Wire removed. 9:48:08 Wire removed. 9:48:11 Guide catheter removed. 9:51:44 Terumo TR Band Large opened to sterile field. 9:52:17 Sheath removed intact; hemostasis achieved with Mechanical Compression to the Right Radial artery. 9:52:18 Procedure ended.(Physican Out) 9:53:15 Fluoroscopy time 16.50 minutes. 9:53:21 Flurop Dose total: 2004 9:53:21 Fluoroscopy dose: 2005 mGy 9:53:25 Contrast amount:Isovue 300 203ml. 9:53:26 Sharps counted by scrub and verified by R.N. 9:53:44 TR band inflated with 12cc of air. 9:53:45 Insertion/operative site no bleeding no hematoma. 9:53:52 Post right radial artery:stable, soft, clean and dry 9:53:53 Post Procedure Pulses reassessed and unchanged 9:53:56 Post-procedure physical assessment completed. ASA score P 2 - A patient with mild systemic disease as per George Hdz MD. 9:54:05 Post procedure rhythm: unchanged. 9:54:51 Estimated blood loss: 10 ml 9:54:52 Post procedure instruction explained to patient.Patient verbalizes understanding. 9:54:53 Patient needs reinforcement of post procedure teaching. 9:55:20 Procedure type changed to Cath procedure, Diagnostic procedure, LHC, LHC w/Coronaries, PCI procedure, PTCA Initial, Miscellaneous Procedures, Moderate Sedation up to 45 minutes 9:57:00 Procedure and supply charges have been captured, reviewed, submitted and are correct. 9:57:02 Procedure Complication : No complications 9:57:04 Vital chart was stopped 9:57:04 See physician's report for complete and final results. 9:57:06 Report given to Pre/Post Procedure Room. 9:57:10 Patient transfered to Pre/Post Procedure Room with Stretcher. 9:59:23 Procedure ended. 9:59:23 Full Disclosure recording stopped 9:59:29 End room use (Document Last) Intervention Summary Intervention Notes Time ActionType Lesion and Equipment Action# Pressure Duration Attributes Used 9:32:39 Discard Yemi OTW Stent 3.0 x 22 stent 9:34:24 Inflate Prox LAD Euphora 1 11 00:10 balloon 2.5 x 15 Balloon 9:39:23 Discard Eymi OTW Stent 3.0 x 22 stent 9:48:05 Discard [place] OTW Stent 3.0 x 22 stent Device Usage Item Name Manufacture Quantity Catalog Hospital Part Current Minim al Lot# / Number Charge Number Stock Stock Serial# Code MBce [facility] 1 140-0250-00 [id number] 45819 323452 5 Wrist Vascular Support Dynamics Acist Acist 1 39191 952666 121307 166408 5 Manifold Medical Systems Inc Tegaderm 4 3M 1 1626W 203655 959489 931870 5 x 4 Acist Hand Acist 1 78336 136898 507572 357640 5 Control Medical Systems Inc Acist Acist 1 71902 650934 181680 527672 20 Syringe Medical Systems Inc Medline Cardinal 1 [id number] 048719 90500 549547 5 Cath Pack Health Bag Microtek 1 2002S 897709 87648 300049 5 Decanter Medical Inc. Terumo 6Fr Terumo 1 [id number] 049193 747513 182202 [address] St Jerald 1 950936 267666 519968 989162 30 260cm J .035 wire Cook 21G MeetCast 1 [id number] 939041 097051 163113 5 4cm Radial Needle Terumo 5Fr Terumo 1 00-9938 388558 744981 646548 5 Oleg 110cm catheter High Merit 1 [id number] 045665 62399 943544 10 Pressure Medical Extension Tubing (Hdz) Cordis 6FR Cardinal 1 [id number] 368512 964563 943199 10 XBLAD 3.5 Health guide catheter Merit Merit 1 [id number] 784975 922893 430813 15 BasixCompak Medical Inflation Kit Collazo BMW Collazo 1 [id number] 802938 771260 181871 5 Bolivar 2 Vascular J-tip 300cm 0.014 guide wir Cordis 6FR Cardinal 1 [id number] 796508 901835 374172 3 XBLAD 4.0 Health guide catheter [place] Sci [place] 3 [id number] 212123 452328 929817 5 flaveit Scientific Straight 300cm 0.014 guide wire [place] OTW Medtronic 1 [id number] 845084 0159349 984957 5 [id number] 3.0 x 22 stent Euphora 2.5 Medtronic 1 [id number] 071123 234235 247077 5 [id number] x 15 Balloon Terumo TR Terumo 1 [id number] 700530 824337 757499 40 Band Large Signature Audit [place] Stage Time Signature Unsigned Intra-Procedure 11/05/2016 Jorgito Murray 9:59:53 AM RT(R) Signatures Monitor : Tyson Aviles RT Signature : Date : Time : [address] [place] [address]
[~2016-11-05 06:42] MED LIST changes: +BAYER CHEWABLE81 MG PO; +FERREX 28 TABL1 EACH PO; +OXYCODONE HCL E20 MG PO
[2016-11-05 07:07] VITALS: BP 122/72; Ht 198.1 cm; Wt 103.6 kg
[2016-11-05 07:21] LABS: BASOPHILS 0.2 % (0-2); EOSINOPHILS 3.2 % (0-7); HEMATOCRIT 36.6 % (42.0-54.0); HEMOGLOBIN 12.7 g/dL (13.5-17.5); IMMATURE GRANULOCYTES 0.2 % (0-5); LYMPHOCYTES 32.3 % (15-50); MCH 33.2 pg (26.0-34.0); MCHC 34.7 g/dL (31.0-37.0); MCV 95.6 fL (80.0-100.0); MONOCYTES 10.7 % (2-11); NEUTROPHILS 53.4 % (40-80); PLATELET COUNT 135 10x3/uL (130-400); RBC 3.83 10x6/uL (4.20-6.10); RDW 13.2 % (11.5-14.5); WBC 6.5 10x3/uL (4.8-10.8)
[2016-11-05 07:27] LABS: ANION GAP 11.4 mmol/L (8-16); CALCIUM 8.5 mg/dL (8.5-10.1); CARBON DIOXIDE 28.8 mmol/L (21.0-32.0); CREATININE - SERUM 1.3 mg/dL (0.6-1.3); POTASSIUM - SERUM 4.2 mmol/L (3.5-5.1)
--- NOTE | 2016-11-05 10:33 | NUR ---
1015 RECEIVED PT FROM CREDIT SPECIALIST. PT SLEEPING, AWAKENS EASILY TO VERBAL STIMULI, DENIES ANY C/O. TR BAND IS CDI TO RIGHT WRIST WITH NO BLEEDING OR HEMATOMA NOTED. WRIST IMMOBILIZER IN PLACE. INSTRUCTED PT TO LIMIT USE OF RIGHT WRIST, NO BENDING OR FLEXING WRIST. RR EVEN AND UNLABORED. PACED RHYTHM. AT BEDSIDE, DENIES ANEEDS AT THIS TIME. 1030 PT DENIES ANY C/O CHEST DISCOMFORT. TR BAND CDI , NO BLEEDING. REQUESTS SODA ANT THIS SERVED. AT BEDSIDE.
--- NOTE | 2016-11-05 11:00 | NUR ---
1100 PT VERY DROWSY, LISS SODA WITH NO C/O NAUSEA. DENIES ANY C/O CHEST DISCOMFORT. TR BAND IS CDI. AT BEDSIDE. PT DENIES NEEDS AT THIS TIME.
--- NOTE | 2016-11-05 11:52 | NUR ---
1150 BP READINGS LOW, CUFF NOT IN CORRECT POSITION, REPOSITIONED CUFF AND BP 103/64. PT VERY DROWSY, STATES PT HAS NOT SLEPT X 2 DAYS, PT DENIES NEEDS AT THIS TIME. TR BAND CDI, NO BLEEDING OR HEMATOMA NOTED. CAP REFILL IS BRISK, FINGERS WARM TO TOUCH.
--- NOTE | 2016-11-05 13:01 | NUR ---
1230 PT DENIES ANY C/O. TR BAND WITH NO BLEEDING OR HEMATOMA NOTED. RR EVEN AND UNLABORED. DENIES ANY C/O CHEST PAIN. AT BEDSIDE. CALL LIGHT IN REACH.
--- NOTE | 2016-11-05 13:31 | NUR ---
1315 [address]AND DEFLATION UNDERWAY,NO BLEEDING OR HEMATOMA NOTED. PT AWAKE, SANDWICH TRAY SERVED. AT BEDSIDE. PT DENIES NEEDS AT THIS TIME.
--- NOTE | 2016-11-05 14:10 | NUR ---
1410 2X2 GAUZE AND TEGADERM TO CATH SITE, AREA IS FREE FROM BLEEDING OR HEMATOMA. FINGERS WARM TO TOUCH. PT DENIES ANY C/O AT DC. HAS AMBULATED TO THE BATHROOM AND VOIDED QS. IV HAS BEEN DC'D WITH CATH INTACT. REVIEWED DC INSTRUCTIONS WITH PT AND WHO VERBALIZE UNDERSTANDING. PT ESCORTED TO PRIVATE AUTO VIA WC BY NURSE WITH DRIVING HIM HOME. WRIST IMMOBILIZER IN PLACE.
== END | disposition home or self-care (01) ==
LOC: D.CATH 06:42
PROVIDERS: Internal Medicine Cardiovascular Disease
DX: I25.119 Atherosclerotic heart disease of native coronary artery with unspecified angina pectoris (principal); T82.855A Stenosis of coronary artery stent, initial encounter; Z01.812 Encounter for preprocedural laboratory examination

== ENCOUNTER 2016-11-10 11:48 | Outpatient (CLI) | payer BC, MEDICARE ==
[~2016-11-10] VITALS: Ht 198.1 cm; Wt 102.3 kg
--- NOTE | ~2016-11-10 | HEMODYNAMI ---
PATIENT:NOMI ANGELA MEDICAL RECORD: [id number] : 49 LOCATION:[facility] ADMISSION DATE: 11/10/16 Generatedon:11/10/201614:35 Patient name: NOMI ANGELA Patient #: [id number] : 1945 Date of study: 11/10/2016 Page: Of Hemodynamic Procedure Report Patient Data Patient Demographics Procedure consent was obtained First Name: NOMI Gender: Male Last Name: COREEN : 1945 Middle Initial: W Age: 71 year(s) Patient #: [id number] Race: SSN: [id number] Additional ID: [id number] Contact details [address]: [address] [place] [address] [address] State: [place] City: [place] Zip code: [address] Past Medical History History of disease Date Diagnosis Comments CAD Allergies Allergen Reaction Date Comments Reported Other allergy 01/03/2015 Benadryl, Nyquil Other allergy 11/05/2016 benadryl. Admission Admission Data Admission Date: 11/10/2016 Admission Time: 11:48 Admit Source: Other Lab Results Lab Result Date: 11/10/2016 Lab Result Time: 0:35 Biochemistry Name Units Result Min Max BUN mg/dl 19 --(----)*- 7 18 Creatinine mg/dl 1.4 --(----)*- 0.6 1.3 CBC Name Units Result Min Max Hematocrit % 41.1 -*(----)-- 42 54 Hemoglobin g/dl 14.3 --(*---)-- 13.5 17.5 Procedure Procedure Types Cath Procedure PCI Procedure Coronary Stent Initial Miscellaneous Procedures Moderate Sedation up to 30 minutes Procedure Description Procedure Date Procedure Date: 11/10/2016 Procedure Start Time: 14:06 Procedure End Time: 14:35 Procedure Staff Name Function Jorgito Murray RT Scrub George Hdz MD Performing Physician Chico Jiménez RN Nurse Jazmin Counts RT Monitor Cheikh Kimbrough RT Systems Engineer Maxwell Anthony MD Additional personnel Procedure Data Cath Procedure Fluoroscopy Diagnostic fluoroscopy Total fluoroscopy Time: 5.1 time: 5.1 min min Diagnostic fluoroscopy Total fluoroscopy dose: 816 dose: 816 mGy mGy Contrast Material Contrast Material Type Amount (ml) Isovue 300 59 Entry Location Entry Primary Successful Side Size Upsize Upsize Entry Closure Succes sful Closure Location (Fr) 1 (Fr) 2 (Fr) Remarks Device Remarks Femoral Right 7 Fr Exoseal artery Short Estimated blood loss: 10 ml Procedure Complications No complications Procedure Medications Medication Administration Route Dosage Oxygen NC 6 l/min Heparin Flush Bag added to field 2 bags (1000units/500ml NS) 0.9% NaCl I.V. 100 ml/hr Refer to Anesthesia Notes for Sedation Medications Heparin Bolus I.V. 29348 units Hemodynamics Rest Heart Rate: 83 (bpm) Snapshots Pre Cath Intra NCS Post Cath Vital Signs Time Heart Resp SPO2 NIBP (mmHg) Rhythm Pain Sedation Rate (ipm) (%) Status Level (bpm) 13:40:24 68 17 100 138/91(113) NSR 0 (11) 10(A) , No pain 13:52:21 62 17 94 85/54(67) NSR 0 (11) 9(A) , No pain 13:59:09 61 17 93 79/52(66) NSR 0 (11) 9(A) , No pain 14:03:08 63 18 93 88/50(67) NSR 0 (11) 9(A) , No pain 14:07:12 68 17 92 81/49(67) NSR 0 (11) 9(A) , No pain 14:11:12 62 18 91 82/48(66) NSR 0 (11) 9(A) , No pain 14:15:16 68 19 92 68/43(60) NSR 0 (11) 9(A) , No pain 14:19:11 67 19 92 79/46(54) NSR 0 (11) 9(A) , No pain 14:23:11 64 18 92 79/49(65) NSR 0 (11) 9(A) , No pain 14:27:08 63 18 93 84/51(69) NSR 0 (11) 9(A) , No pain 14:31:08 60 10 94 90/51(74) NSR 0 (11) 9(A) , No pain 14:35:05 61 9 99 100/67(80) NSR 0 (11) 9(A) , No pain Medications Time Medication Route Dose Verified Delivered Reason Notes Effectiveness by by 13:41:48 Oxygen NC 6 [place] Per physician l/min Tino Jiménez RN RN 13:41:58 Heparin Flush added 2 [place] used for Bag to bags Tino Jiménez RN procedure (1000units/500ml field RN NS) 13:42:19 0.9% NaCl I.V. 100 [place] Per physician ml/hr Tino Jiménez RN RN 14:09:43 Refer to [place] Anesthesia Notes Tino Jiménez RN for Sedation RN Medications 14:10:44 Heparin Bolus I.V. 90223 [place] for units Tino Jiménez RN anticoagulation fibre optics jointer Log Time Note 13:02:47 Informed consent obtained and on chart 13:06:00 Admit Source: Other 13:06:05 Diagnostic Cath status Elective 13:06:07 Time tracking: Regular hours 13:06:11 Plan of Care:Hemodynamics will remain stable., Cardiac rhythm will remain stable., Comfort level will be maintained., Respiratory function will remain adequate., Patient/ family verbilizes understanding of procedure., Procedure tolerated without complication., Recovers from procedure without complications.. 13:07:19 Lab Result : Creatinine 1.4 mg/dl 13:07:19 Lab Result : BUN 19 mg/dl 13:07:19 Lab Result : Hematocrit 41.1 % 13:07:19 Lab Result : Hemoglobin 14.3 g/dl 13:14:51 Cheikh Kimbrough RT(R) sent for patient. Start room use. 13:30:13 Patient received from Pre/Post Procedure Room to CCL 2 Alert and oriented. Tansferred to table in Supine position. 13:30:27 Dr Anthony present and monitoring patient for TIVA. 13:32:14 Warm blankets applied, and anuel hugger turned on for patient comfort. 13:32:14 Correct patient and procedure confirmed by team. 13:32:15 ECG and BP/O2 sat monitors applied to patient. 13:32:35 Full Disclosure recording started 13:39:22 Vital chart was started 13:41:48 Oxygen 6 l/min NC was administered by Chico Jiménez RN; Per physician; 13:41:58 Heparin Flush Bag (1000units/500ml NS) 2 bags added to field was administered by Chico Jiménez RN; used for procedure; 13:42:19 0.9% NaCl 100 ml/hr I.V. was administered by Chico Jiménez RN; Per physician; 13:42:47 Baseline sample Acquired. 13:43:08 Rhythm: paced 13:43:17 H&P Date Dictated: 10/21/2016 Within 30 days and on chart., H&P Addendum completed by physician on day of procedure. (MUST COMPLETE FOR ALL OUTPATIENTS). 13:43:18 Pre-procedure instructions explained to patient. 13:43:18 Pre-op teaching completed and patient verbalized understanding. 13:43:19 Family in waiting room. 13:43:21 Patient NPO since Midnight. 13:43:27 Is the patient allergic to Iodine/contrast media? No. 13:43:29 Is patient on blood thinner?Yes 13:43:32 ACC The patient was administered the following blood thiners within the last 24 hours: ACCPlavix 13:43:34 Patient diabetic? No. 13:43:37 Previous problem with sedation/anesthesia? No ? 13:43:37 Snore? Yes 13:43:38 Sleep apnea? Yes 13:43:39 Deviated septum? No 13:43:40 Opens mouth fully? Yes 13:43:40 Sticks out tongue? Yes 13:43:42 Airway obstruction? No ? 13:43:45 Dentures? Yes IN 13:43:48 Pre procedure: right dorsailis pedis pulse 2+ Normal; easily identifiable; not easily obliterated 13:43:50 Patient pain scale 0/10 ?. 13:43:55 IV patent on arrival in left hand with 0.9% NaCl at O. 13:43:59 Lab results completed and on chart. 13:44:03 Right groin area was prepped with chlora-prep and draped in sterile fashion 13:44:03 Alarms reviewed by R. N. 13:44:04 Sharps counted by scrub and verified by R.N. 13:44:10 Acist Syringe opened to sterile field. 13:44:11 Bag Decanter opened to sterile field. 13:44:11 Medline Cath Pack opened to sterile field. 13:44:13 St Jerald 260cm J .035 wire opened to sterile field. 13:44:14 Acist Hand Control opened to sterile field. 13:44:14 Acist Manifold opened to sterile field. 13:44:15 Tegaderm 4 x 4 opened to sterile field. 13:51:01 Vital chart was stopped 13:51:02 Vital chart was started 13:54:41 Vital chart was stopped 13:54:42 Vital chart was started 13:54:48 Zero performed for pressure channel P1 14:03:03 Physician arrived 14:03:04 --------ALL STOP TIME OUT------ 14:03:05 Final Timeout: patient, procedure, and site verified with staff and physician. All members of the team are in agreement. 14:03:16 Right groin site verified by team. 14:03:20 Physical assessment completed. ASA score P 2 - A patient with mild systemic disease as per George Hdz MD. 14:03:25 Sedation plan: IV Moderate Sedation Versed, Fentanyl 14:06:16 Procedure started. 14:06:20 Local anesthetic to right femoral artery with Lidocaine 2% by George Hdz MD.INITIAL ACCESS ONLY 14:07:07 Terumo 7Fr [place] Sheath opened to sterile field. 14:07:15 Merit BasixCompak Inflation Kit opened to sterile field. 14:08:05 A 7 Fr Short sheath was inserted into the Right Femoral artery 14:08:43 High Pressure Extension Tubing (Wilder) opened to sterile field. 14:09:12 7 Fr EBU 4 guide catheter was inserted over the wire 14:09:43 Refer to Anesthesia Notes for Sedation Medications was administered by Chico Jiménez RN; ; 14:10:44 Heparin Bolus 99819 units I.V. was administered by Chico Jiménez RN; for anticoagulation; 14:11:31 Collazo Whisper J 300cm 0.014 guide wire opened to sterile field. 14:11:58 WHISPER wire advanced. 14:11:59 Wire advanced across lesion. 14:14:06 Inflation number: 1 A Medtronic Sprinter 2.5 x 15 balloon was prepped and advanced across the Prox LAD, then inflated to 14 RALPH for 0:10 (min:sec). 14:14:47 Wire removed. 14:15:02 CHOICE PT ES wire advanced. 14:19:59 Balloon removed over the wire. 14:21:37 Inflation Number: 2 A [place] OTW 3.0 x 18 stent was prepped and advanced across the Prox LAD. The stent was deployed at 14 RALPH for 0:40 (min:sec). 14:24:15 Stent catheter was removed intact over wire. 14:24:15 Wire removed. 14:24:16 Guide catheter removed. 14:24:23 Sheath removed intact; hemostasis achieved with Exoseal to the Right Femoral artery. 14:24:32 Cordis 7Fr Exoseal opened to sterile field. 14:24:46 Procedure ended.(Physican Out) 14:24:57 Fluoroscopy time 05.10 minutes. 14:25:00 Flurop Dose total: 816 14:25:00 Fluoroscopy dose: 816 mGy 14:27:12 Contrast amount:Isovue 300 59ml. 14:27:14 Sharps counted by scrub and verified by R.N. 14:27:14 Insertion/operative site no bleeding no hematoma. 14:27:17 Post-op/insertion site Right Femoral artery dressed using a 4 x 4 and Tegaderm. 14:27:20 Post right femoral artery:stable, clean and dry 14:27:21 Post Procedure Pulses reassessed and unchanged 14:27:29 Post-procedure physical assessment completed. ASA score P 2 - A patient with mild systemic disease as per George Hdz MD. 14:27:33 Post procedure rhythm: unchanged. 14:27:35 Estimated blood loss: 10 ml 14:27:38 Post procedure instruction explained to patient.Patient verbalizes understanding. 14:27:38 Patient needs reinforcement of post procedure teaching. 14:28:16 Procedure type changed to Cath procedure, PCI procedure, Coronary Stent Initial, Miscellaneous Procedures, Moderate Sedation up to 30 minutes 14:28:22 Procedure Complication : No complications 14:28:24 See physician's report for complete and final results. 14:29:12 Polo Sci Choice PT Extra Support J 300cm .014 gu opened to sterile field. 14:31:06 Medtronic Launcher 7Fr EBU 4.0 guide catheter opened to sterile field. 14:31:48 Procedure and supply charges have been captured, reviewed, submitted and are correct. 14:33:40 Report given to Pre/Post Procedure Room. 14:34:51 Patient transfered to Pre/Post Procedure Room with Stretcher. 14:35:15 Procedure ended. 14:35:15 Full Disclosure recording stopped 14:35:18 End room use (Document Last) 14:35:35 Vital chart was stopped Intervention Summary Intervention Notes Time ActionType Lesion and Equipment Action# Pressure Duration Attributes Used 14:14:06 Inflate Prox LAD Medtronic 1 14 00:10 balloon Sprinter 2.5 x 15 balloon 14:21:37 Place stent Prox LAD Yemi OTW 2 14 00:40 3.0 x 18 stent Device Usage Item Name Manufacture Quantity Catalog Number Hospital Part Current Mini mal Lot# / Charge Number Stock Stock Serial# Code Acist Acist 1 87988 566038 650224 [id number] 20 Syringe Medical Systems Inc Bag Microtek 1 2002S 226042 42140 582322 5 DecVoci Technologies Inc. Medline Cardinal 1 [id number] 190417 77477 604840 [address] Jerald St Jerald 1 833050 064453 402877 623066 30 260cm J .035 wire Acist Hand Acist 1 02973 174612 970473 011713 5 Control Medical Systems Inc Acist Acist 1 48100 055363 082741 303922 5 Robotic Wares Medical Systems Inc Tegaderm 4 3M 1 [id number] 918897 747088 540517 5 x 4 Terumo 7Fr Terumo 1 [id number] 447520 982361 505412 5 [place] Sheath Merit Merit 1 [id number] 932611 231078 142454 15 BasixCompak Medical Inflation Kit High Merit 1 [id number] 535942 02769 452465 10 Pressure Medical Extension Tubing (Hdz) Collazo Collazo 1 [id number] 610613 315963 894751 5 Whisper J Vascular 300cm 0.014 guide wire Medtronic Medtronic 1 [id number] 556973 651758 5 Sprinter 2.5 x 15 balloon Yemi OTW Medtronic 1 [id number] 728462 8810066 720207 5 [id number] 3.0 x 18 stent Cordis 7Fr Cardinal 1 EX700 839058 448420 949830 5 Defend Your Head [facility] 1 [id number] 778556 20181018 851368 5 Choice PT Scientific Extra Support J 300cm .014 gu Medtronic Medtronic 1 [id number] 030442 733509 538198 0 Launcher 7Fr EBU 4.0 guide catheter Signature Audit [place] Stage Time Signature Unsigned Intra-Procedure 11/10/2016 Jazmin 2:35:31 PM Counts RT(R) Signatures Monitor : Jazmin Signature : Counts RT Date : Time : [place] [id number] [place] [address]
[~2016-11-10 11:48] MED LIST changes: -BAYER CHEWABLE81 MG PO
[2016-11-10] MEDS ORDERED: BAYER CHEWABLE81 MG PO (12:35)
[2016-11-10 12:39] VITALS: BP 112/63; Ht 198.1 cm; Wt 102.3 kg
[2016-11-10 12:43] LABS: BASOPHILS 0.2 % (0-2); EOSINOPHILS 2.9 % (0-7); HEMATOCRIT 41.1 % (42.0-54.0); HEMOGLOBIN 14.3 g/dL (13.5-17.5); IMMATURE GRANULOCYTES 0.3 % (0-5); LYMPHOCYTES 24.4 % (15-50); MCH 33.4 pg (26.0-34.0); MCHC 34.8 g/dL (31.0-37.0); MEAN PLATELET VOLUME 8.8 fL (7.4-10.4); MONOCYTES 7.3 % (2-11); NEUTROPHILS 64.9 % (40-80); PLATELET COUNT 166 10x3/uL (130-400); RBC 4.28 10x6/uL (4.20-6.10); RDW 13.5 % (11.5-14.5); WBC 8.9 10x3/uL (4.8-10.8)
[2016-11-10 12:55] LABS: ANION GAP 14.4 mmol/L (8-16); CREATININE - SERUM 1.4 mg/dL (0.6-1.3); POTASSIUM - SERUM 4.4 mmol/L (3.5-5.1)
--- NOTE | 2016-11-10 15:15 | NUR ---
RIGHT GROIN CDI, NO HEMATOMA OR BLEEDING AT SITE, SOFT TO TOUCH, AT SIDE. DENIES NEEDS
--- NOTE | 2016-11-10 15:45 | NUR ---
NO CHANGE IN RIGHT GROIN, NO HEMATOMA OR BLEEDING AT SITE
--- NOTE | 2016-11-10 18:50 | NUR ---
IV D'C WITH CATH TIP INTACT, WRITTEN AND VERBAL D'C INSTRUCTIONS GIVEN TO PT AND , VERBAL UNDERSTANDING NOTED. RIGHT GROIN -NO HEMATOMA OR BLEEDING NOTED
== END 2016-11-10 19:00 | disposition home or self-care (01) ==
LOC: D.CATH 11:48
PROVIDERS: Internal Medicine Cardiovascular Disease
DX: I25.119 Atherosclerotic heart disease of native coronary artery with unspecified angina pectoris (principal); T82.855A Stenosis of coronary artery stent, initial encounter; Z01.812 Encounter for preprocedural laboratory examination

== ENCOUNTER → 2017-02-16 12:33 | Outpatient (CLI) | payer BC, MEDICARE ==
[2016-11-10 12:39] VITALS: BMI 26.0
[~2017-02-16 12:33] MED LIST changes: +BAYER CHEWABLE81 MG PO; +SINGULAIR10 MG PO
== END | disposition home or self-care (01) ==
LOC: D.RT 12:33
DX: J84.9 Interstitial pulmonary disease, unspecified (principal)

== ENCOUNTER 2017-05-03 23:43 | Observation (INO) | payer BC, MEDICARE ==
[~2017-05-03] VITALS: Ht 198.1 cm; Wt 105.3 kg
--- NOTE | ~2017-05-03 | DS ---
PATIENT:NOMI REDMOND :49 MEDICAL RECORD: [id number] DISCHARGE SUMMARY ADMISSION DATE: 05/04/17 DISCHARGE DATE: 05/04/17 DIAGNOSES: 1. Unstable angina. 2. Coronary artery disease. 3. PTCA, LAD this admission. 4. Sick sinus syndrome. 5. Status post pacemaker placement. 6. Atrial lead malfunction, requiring pacemaker reprogramming. 7. Hypertension. 8. Hyperlipidemia. HOSPITAL COURSE: Mr. Redmond presents with chest discomfort. Two cardiac problems were found, one was a significant restenosis of the stent in the LAD and he underwent successful PTCA of that. He as well had migration of his atrial lead to the pacemaker and atrial lead malfunction, pacemaker was reprogrammed to VVI. He will have an appointment with ____ for pacemaker lead replacement and possible exchange for screw in lead. TRANSINT:[id number] Voice Confirmation ID: [id number] DOCUMENT ID: [id number] RITA HARDEN MD at 1324 CC: [id number] DICTATION DATE: 05/04/17 1031 ENGINE BUILDER: 05/04/17 1812 DIS IN 05/04/17 [place] [address] [place] [address]
--- NOTE | ~2017-05-03 | HEMODYNAMI ---
PATIENT:NOMI ANGELA MEDICAL RECORD: [id number] : [birth year] LOCATION:[facility] [address] [id number] ADMISSION DATE: 05/04/17 Generatedon:05/04/201710:42 Patient name: NOMI ANGELA Patient #: [id number] : 1945 Date of study: 05/04/2017 Page: Of Hemodynamic Procedure Report Patient Data Patient Demographics Procedure consent was obtained First Name: NOMI Gender: Male Last Name: COREEN : 1945 Middle Initial: W Age: 71 year(s) Patient #: [id number] Race: SSN: [id number] Additional ID: [id number] Contact details Address: [address] [place] [address] [address] State: [place] City: [place] Zip code: [address] Past Medical History History of disease Date Diagnosis Comments CAD Allergies Allergen Reaction Date Comments Reported Other allergy 01/03/2015 Benadryl, Nyquil Other allergy 11/05/2016 benadryl. Other allergy 05/04/2017 Dextramethaphan, benadryl, nyquil Admission Admission Data Admission Date: 05/04/2017 Admission Time: 1:38 Admit Source: Other [facility] Results Lab Result Date: 05/04/2017 Lab Result Time: 0:00 Biochemistry Name Units Result Min Max BUN mg/dl 29 --(----)-* 7 18 Creatinine mg/dl 1.4 --(----)*- 0.6 1.3 CBC Name Units Result Min Max Hematocrit % 34.5 *-(----)-- 42 54 Hemoglobin g/dl 12.1 *-(----)-- 13.5 17.5 Procedure Procedure Types Cath Procedure Diagnostic Procedure LHC LHC w/Coronaries PCI Procedure PTCA PTCA Initial Miscellaneous Procedures Moderate Sedation up to 30 minutes Procedure Description Procedure Date Procedure Date: 05/04/2017 Procedure Start Time: 10:15 Procedure End Time: 10:38 Procedure Staff Name Function Ashwini Brock RT Scrub Dora Elizabeth RN Nurse Zachary Rothman MD Performing Physician Jorgito Murray RT Monitor Ayaan Benton CRNA Additional personnel Procedure Data Cath Procedure Fluoroscopy Diagnostic fluoroscopy Total fluoroscopy Time: 4.2 time: 4.2 min min Diagnostic fluoroscopy Total fluoroscopy dose: 611 dose: 611 mGy mGy Contrast Material Contrast Material Type Amount (ml) Isovue 300 72 Entry Location Entry Primary Successful Side Size Upsize Upsize Entry Closure Vicente ccessful Closure Location (Fr) 1 (Fr) 2 (Fr) Remarks Device Remarks Radial Right 6 Fr Mechanical artery Short Compression Estimated blood loss: 10 ml Diagnostic catheters Device Type Used For End Catheter Placement DIAGNOSTIC Stanford 110cm 5 Procedure Fr catheter ([id number]) Procedure Complications No complications Procedure Medications Medication Administration Route Dosage Oxygen 10 l/min Lidocaine 2% added to field 20 Heparin Flush Bag added to field 2 bags (1000units/500ml NS) 0.9% NaCl I.V. 100 ml/hr Refer to Anesthesia Notes for Sedation Medications Heparin Bolus I.V. 4000 units Hemodynamics Rest HGB: 12.1 (g/dl) Heart Rate: 102 (bpm) Snapshots Pre Cath Intra NCS Post Cath Vital Signs Time Heart Resp SPO2 etCO2 NIBP (mmHg) Rhythm Pain Sedation Rate (ipm) (%) (mmHg) Status Level (bpm) 9:59:39 96 16 95 0 126/79(100) NSR 0 (11) 10(A) , No pain 10:03:53 58 19 94 0 106/66(84) NSR 0 (11) 10(A) , No pain 10:08:03 51 16 98 0 103/61(87) NSR 0 (11) 10(A) , No pain 10:12:13 48 15 99 0 96/58(75) NSR 0 (11) 9(A) , No pain 10:16:25 50 15 99 0 88/45(64) NSR 0 (11) 9(A) , No pain 10:20:33 51 16 98 0 77/46(65) NSR 0 (11) 9(A) , No pain 10:24:36 52 16 99 0 82/49(66) NSR 0 (11) 9(A) , No pain 10:28:40 51 15 99 0 86/53(69) NSR 0 (11) 9(A) , No pain 10:32:44 49 16 99 0 95/61(75) NSR 0 (11) 10(A) , No pain 10:38:20 98 0 109/68(85) NSR 0 (11) 10(A) , No pain Medications Time Medication Route Dose Verified Delivered Reason Notes Effectiveness by by 10:03:37 Oxygen simple 10 Zachary Christinaie used for mask l/min Stephan Elizabeth RN procedure 10:03:43 Lidocaine 2% added 20ml Zachary Zachary for local to vial Stephan Rothman MD anesthetic field 10:03:49 Heparin Flush added 2 Zachary Zachary used for Bag to bags Stephan Rothman MD procedure (1000units/500ml field NS) 10:03:57 0.9% NaCl I.V. 100 Zachary John Per physician ml/hr Stephan Elizabeth RN 10:04:03 Refer to Zachary John Anesthesia Notes Stephan Elizabeth RN for Sedation Medications 10:18:13 Heparin Bolus I.V. 4000 Zachary John for verifi ed units Stephan Elizabeth RN anticoagulation with dr rothman Procedure Log Time Note 9:33:47 Informed consent obtained and on chart 9:33:51 Admit Source: Other 9:34:06 Diagnostic Cath status Elective 9:34:07 Dora Elizabeth RN sent for patient. Start room use. 9:34:08 Time tracking: Regular hours 9:34:12 Plan of Care:Hemodynamics will remain stable., Cardiac rhythm will remain stable., Comfort level will be maintained., Respiratory function will remain adequate., Patient/ family verbilizes understanding of procedure., Procedure tolerated without complication., Recovers from procedure without complications.. 9:35:18 H&P Date Dictated: 05/04/2017 New H&P dictated by physician.. 9:36:06 Lab Result : Hemoglobin 12.1 g/dl 9:36:06 Lab Result : Hematocrit 34.5 % 9:36:06 Lab Result : BUN 29 mg/dl 9:36:06 Lab Result : Creatinine 1.4 mg/dl 9:36:55 Ayaan Benton CRNA present and monitoring patient for TIVA. 9:50:56 Patient received from PCU to CCL 2 Alert and oriented. Tansferred to table in Supine position. 9:51:02 Warm blankets applied, and anuel hugger turned on for patient comfort. 9:51:03 Correct patient and procedure confirmed by team. 9:51:34 ECG and BP/O2 sat monitors applied to patient. 9:51:36 Pre-op teaching completed and patient verbalized understanding. 9:51:36 Pre-procedure instructions explained to patient. 9:58:32 Vital chart was started 9:58:36 Baseline sample Acquired. 10:03:37 Oxygen 10 l/min simple mask was administered by Dora Elizabeth RN; used for procedure; 10:03:43 Lidocaine 2% 20ml vial added to field was administered by Zachary Rothman MD; for local anesthetic; 10:03:49 Heparin Flush Bag (1000units/500ml NS) 2 bags added to field was administered by Zachary Rothman MD; used for procedure; 10:03:57 0.9% NaCl 100 ml/hr I.V. was administered by Dora Elizabeth RN; Per physician; 10:04:03 Refer to Anesthesia Notes for Sedation Medications was administered by Dora Elizabeth RN; ; 10:06:09 Baseline sample Acquired. 10:06:18 Rhythm: paced 10:06:21 Family in patients room. 10:06:22 Patient NPO since Midnight. 10:06:54 Patient allergic to Other allergyDextramethaphan, benadryl, nyquil 10:06:55 Is the patient allergic to Iodine/contrast media? No. 10:06:56 Is patient on blood thinner?Yes 10:06:59 ACC The patient was administered the following blood thiners within the last 24 hours: ACCPlavix 10:07:03 Patient diabetic? No. 10:07:06 Snore? Yes 10:07:06 Previous problem with sedation/anesthesia? No ? 10:07:07 Sleep apnea? Yes 10:07:08 Deviated septum? No 10:07:09 Opens mouth fully? Yes 10:07:10 Sticks out tongue? Yes 10:07:14 Airway obstruction? Yes asthma 10:07:19 Dentures? Yes out 10:07:24 Modified Surinder's test Ulnar < 7 seconds 10:07:26 Patient pain scale 0/10 ?. 10:07:30 IV patent on arrival in left forearm with 0.9% NaCl at KVO. 10:07:33 Lab results completed and on chart. 10:07:37 Right Radial & Right Groin area was prepped with chlora-prep and draped in sterile fashion 10:07:38 Sharps counted by scrub and verified by R.N. 10:07:38 Alarms reviewed by R. N. 10:07:41 Use device set Radial Dx or PCI 10:07:44 MBrace Wrist Support ([id number]) opened to sterile field. 10:07:45 ACIST Manifold (30660) opened to sterile field. 10:07:45 Tegaderm 4 x 4 (1626W) opened to sterile field. 10:07:46 ACIST Hand Control (43464) opened to sterile field. 10:07:47 ACIST Syringe (99646) opened to sterile field. 10:07:48 Medline Cath Pack ([id number]) opened to sterile field. 10:07:49 DIAGNOSTIC WIRE .035 260cm J wire (248722) opened to sterile field. 10:07:49 Bag Decanter (2002S) opened to sterile field. 10:07:54 SHEATH 6FR Slender ([id number]) opened to sterile field. 10:07:54 NEEDLE Cook 21G 4cm Radial (H04163) opened to sterile field. 10:08:04 Final Timeout: patient, procedure, and site verified with staff and physician. All members of the team are in agreement. 10:08:04 --------ALL STOP TIME OUT------ 10:08:04 Physician arrived 10:08:06 Right Radial & Right Groin site verified by team. 10:08:08 Physical assessment completed. ASA score P 2 - A patient with mild systemic disease as per Zachary Rothman MD. 10:08:11 Sedation plan: IV Moderate Sedation Medication:Versed, Fentanyl 10:11:21 Zero performed for pressure channel P1 10:14:59 Full Disclosure recording started 10:14:59 Procedure started. 10:15:06 Local anesthetic to right radial artery with Lidocaine 2% by Zachary Rothman MD.INITIAL ACCESS ONLY 10:15:10 A 6 Fr Short sheath was inserted into the Right Radial artery 10:15:16 A DIAGNOSTIC Stanford 110cm 5 Fr catheter ([id number]) was advanced over the wire and used for Procedure. 10:17:10 LV gram done using RALPH 10:17:13 Injector settings: Ml/sec: 5, Volume: 15, 10:17:19 EF : 55 % 10:17:23 RCA angiography performed. 10:17:58 LCA angiography performed. 10:18:13 Heparin Bolus 4000 units I.V. was administered by Dora Elizabeth RN; for anticoagulation; verified with dr rothman 10:18:41 INFLATOR Merit BasixCompak (EF8189) opened to sterile field. 10:18:49 Catheter removed. 10:18:57 GUIDE 6FR XBLAD 3.5 catheter ([id number]) opened to sterile field. 10:18:57 WHISPER 190cm wire ([id number]) opened to sterile field. 10:20:34 6 Fr xblad 3.5 guide catheter was inserted over the wire 10:21:25 whisper wire advanced. 10:21:48 Wire advanced across lesion. 10:21:56 [place] Eagleye IVUS Catheter (25266G) opened to sterile field. 10:22:00 IVUS catheter advanced over wire. 10:24:00 IVUS catheter removed over wire. 10:24:04 Wire removed. 10:24:17 choie pt wire advanced. 10:24:34 Wire advanced across lesion. 10:24:59 IVUS catheter advanced over wire. 10:25:28 IVUS catheter removed over wire. 10:25:44 IVUS not able to cross lesion. 10:27:30 Inflation number: 1 A NC EUPHORA 3.0 x 20 balloon ([id number]) was prepped and advanced across the Prox LAD, then inflated to 21 RALPH for 0:10 (min:sec). 10:27:37 Wire removed. 10:27:37 Balloon removed over the wire. 10:27:38 Guide catheter removed. 10:27:55 TR BAND Standard ([id number]) opened to sterile field. 10:28:53 Sheath removed intact; hemostasis achieved with Mechanical Compression to the Right Radial artery. 10:28:55 Procedure ended.(Physican Out) 10:30:19 Fluoroscopy time 04.20 minutes. 10:30:22 Fluoroscopy dose: 611 mGy 10:30:22 Flurop Dose total: 611 10:30:28 Contrast amount:Isovue 300 72ml. 10:30:29 Sharps counted by scrub and verified by R.N. 10:30:31 TR band inflated with 10cc of air. 10:30:32 Insertion/operative site no bleeding no hematoma. 10:30:35 Post Procedure Pulses reassessed and unchanged 10:30:40 Post-procedure physical assessment completed. ASA score P 2 - A patient with mild systemic disease as per Zachary Rothman MD. 10:30:43 Post procedure rhythm: unchanged. 10:30:47 Estimated blood loss: 10 ml 10:30:48 Post procedure instruction explained to patient.Patient verbalizes understanding. 10:30:49 Patient needs reinforcement of post procedure teaching. 10:31:08 Procedure type changed to Cath procedure, Diagnostic procedure, LHC, LHC w/Coronaries, PCI procedure, PTCA, PTCA Initial, Miscellaneous Procedures, Moderate Sedation up to 30 minutes 10:31:44 Procedure and supply charges have been captured, reviewed, submitted and are correct. 10:31:47 Procedure Complication : No complications 10:31:50 See physician's report for complete and final results. 10:31:52 Report given to PCU. 10:31:55 Patient transfered to Pre/Post Procedure Room with Stretcher. 10:38:29 Full Disclosure recording stopped 10:38:29 Procedure ended. 10:38:33 End room use (Document Last) Intervention Summary Intervention Notes Time ActionType Lesion and Equipment Action# Pressure Duration Attributes Used 10:27:30 Inflate Prox LAD NC EUPHORA 1 21 00:10 balloon 3.0 x 20 balloon ([id number]) Device Usage Item Name Manufacture Quantity Catalog Hospital Part Current Minima l Lot# / Number Charge Number Stock Stock Serial# Code MBrace Wrist Advanced 1 140-0250-00 203785 37157 691491 5 Support Vascular ([id number]) Dynamics Tegaderm 4 x 3M 1 1626W 486602 891770 171991 5 4 (1626W) ACIST Acist 1 23758 355303 955213 409052 5 Manifold Medical (04529) Systems Inc ACIST Hand Acist 1 14038 432639 828416 995335 5 Control Medical (19400) Systems Inc ACIST Acist 1 43568 470520 155262 409716 20 Syringe Medical (51798) Systems Inc Medline Cath Cardinal 1 [id number] 462738 69025 335942 5 Pack Health ([id number]) Bag Decanter Microtek 1 2001S 102292 93941 762839 5 (2001S) Medical Inc. DIAGNOSTIC St Jerald 1 504016 445345 765585 781550 30 WIRE .035 260cm J wire (707855) NEEDLE Cook Benton Medical 1 I88669 391886 293781 646950 5 21G 4cm Radial (W91778) SHEATH 6FR Terumo 1 [id number] 802656 707732 686089 40 Slender ([id number]) DIAGNOSTIC Terumo 1 40-5013 881606 159330 823716 5 Stanford 110cm 5 Fr catheter (261095) INFLATOR Merit 1 JO2886 101871 052451 788839 15 [facility] Medical BasixCompak (SH7943) WHISPER Collazo 1 [id number] 825673 256389 706055 5 190cm wire Vascular (5433521SL) [place] 1 28570F 382573 201701 675582 8 [place] Eag[place] IVUS Catheter (04375S) NC EUPHORA Medtronic 1 [id number] 593767 068783 435077 0 3.0 x 20 balloon ([id number]) TR BAND Terumo 1 [id number] 199256 581224 402264 40 Standard ([id number]) GUIDE 6FR Cardinal 1 [id number] 690387 448580 656110 10 XBLAD 3.5 Health catheter (85432558) Signature Audit [place] Stage Time Signature Unsigned Intra-Procedure 05/04/2017 Jorgito Murray 10:39:28 AM RT(R) Signatures Monitor : Jorgito Murray RT Signature : Date : Time : [facility] [address] [place] [address]
--- NOTE | ~2017-05-03 | OP ---
PATIENT NAME: NOMI ANGELA MEDICAL RECORD: [id number] :49 LOCATION:D.M2 D.2121 ADMISSION DATE:05/04/17 SURGEON: RITA HARDEN MD DATE OF OPERATION: 05/04/2017 PROCEDURES: 1. PTCA, LAD. 2. Intravascular ultrasound of the LAD. 3. Left heart catheterization. 4. Selective coronary angiography. 5. Left ventriculogram. INDICATION: Unstable angina. PROCEDURE IN DETAIL: After informed consent was obtained and after a detailed explanation of risks, benefits as well as alternative therapies, the patient elected to proceed with angiogram and angioplasty. The right radial area is prepped and draped in normal sterile fashion. The right radial artery was cannulated via modified Seldinger technique with placement of 6-Urdu sheath. All catheters were exchanged through this sheath. FINDINGS: The left ventriculogram was performed in standard 30-degree RALPH view, reveals global hypokinesis. Overall ejection fraction 35%. SELECTIVE CORONARY ANGIOGRAPHY: 1. Left main is with no significant angiographic disease. 2. Left anterior descending has previously placed stent that has 85% in-stent restenosis. 3. Left circumflex shows moderate irregularities, but no flow-limiting stenosis. 4. Right coronary has moderate irregularities, but no flow-limiting stenosis. Previously placed stents are widely patent. PTCA: High pressure PTCA was performed with a 3.5 balloon taken to 17 atmospheres, fully expanded stent, there is no further restenosis. IMPRESSION: Successful percutaneous transluminal coronary angioplasty of the left anterior descending for in-stent restenosis, 85% initial stenosis to 0% residual. TRANSINT:[id number] Voice Confirmation ID: [id number] DOCUMENT ID: [id number] RITA HARDEN MD at 1324 CC: [id number] DICTATION DATE: 05/04/17 1033 DIRECTOR OF SOCIAL SERVICES: 05/04/17 1213 DIS IN 05/04/17 [place] [id number] [place] [id number]
--- NOTE | ~2017-05-03 | HP ---
PATIENT: NOMI REDMOND MEDICAL RECORD: [id number] ACCOUNT: [id number] LOCATION:[address] : [birth year] ADMISSION DATE: 05/04/17 HISTORY AND PHYSICAL EXAMINATION DIAGNOSES: 1. Non-Q-wave myocardial infarction. 2. Coronary artery disease. 3. Sick sinus syndrome. 4. Status post pacemaker. 5. Hypertension. 6. Hyperlipidemia. HISTORY OF PRESENT ILLNESS: Mr. Redmond is a gentleman who presents with chest pain last night, bumped his troponin, ruled in for a non-Q-wave myocardial infarction. He has ST-T changes in the lateral leads. He does have a history of coronary artery disease, previous cardiac stenting, as well has a sick sinus syndrome. Pacemaker is interrogated, no parameter changes were needed. No dysrhythmias were present. He has continued to have episodes of chest pain this morning. REVIEW OF SYSTEMS: The patient reports easy bruising but reports no swollen glands. The patient reports no fever, no night sweats, no significant weight gain, no significant weight loss. No significant exercise tolerance. The patient reports no dry eyes, no irritation, no vision change. Patient reports no difficulty hearing and no ear pain. Patient reports no frequent nose bleeds or nose and sinus problems. Patient reports on arm pain on exertion. No shortness of breath while lying down. No history of heart murmur. Patient reports no cough, no wheezing or coughing up blood. Patient reports no abdominal pain, no vomiting. Normal appetite. No diarrhea and not vomiting blood. No nausea and no constipation. Patient reports no incontinence. No difficulty urinating. No hematuria. No increased frequency. Patient reports no muscle aches. No weakness, no arthralgias, no back pain. No swelling of the extremities. Patient reports no abnormal mole, no jaundice, no rashes. Reports no loss of consciousness. No weakness and no numbness. No seizures, dizziness, or headaches. The patient reports no depression, no sleep disturbance, feeling safe in a relationship and no alcohol abuse. Patient reports on fatigue. Reports no runny nose or sinus pressure. No itching, no hives, and no frequent sneezing. PHYSICAL EXAMINATION: GENERAL APPEARANCE: Well-nourished, well-developed, appears stated age. Level of distress, comfortable. PSYCHIATRIC: Mental status, alert, normal affect. Orientation, oriented to time, place and person. EYES: Lids and conjunctiva, noninjected. No discharge, no pallor. ENT: Lips, teeth, gums, normal dentition. Oropharynx, no cyanosis, no pallor. NECK: Carotid arteries, bilateral normal upstroke, no bruits, no thrills. JUGULAR VEINS: No jugular venous pressure or distention. CERVICAL LYMPH NODES: Nontender, nonenlarged. THYROID: Not enlarged. Nontender. No nodules. LUNGS: Respiratory effort, unlabored. CHEST: Normal curvature. No thoracic deformity. No chest wall tenderness. Percussion, resonant. Auscultation, clear. No wheezes, no rales, no rhonchi. CARDIOVASCULAR: Precordial exam, nondisplaced. No heaves or pericardial HISTORY AND PHYSICAL [id number] NOMI REDMOND W thrills. Rate and rhythm, regular. Heart sounds, normal S1, normal S2. No S3, no gallop, no rub. Systolic murmur, not heard. Diastolic murmur, not heard. EXTREMITIES: No cyanosis, no edema. Peripheral pulses, full and equal in all extremities, except as noted. No bruits appreciated. ABDOMEN: Soft, nondistended. Normal aorta. No bruit. Nontender. No masses. Liver, nontender, no hepatomegaly. Spleen, nontender, no splenomegaly. MUSCULOSKELETAL: No joint tenderness. No joint swelling. No erythema. NEUROLOGICAL: Normal gait, normal strength, normal tone. SKIN: Warm and dry. OVERALL IMPRESSION: Non-Q-wave myocardial infarction with continued angina. We will proceed with coronary angiography. Further care depends upon findings of the angiography. TRANSINT:[id number] Voice Confirmation ID: [id number] DOCUMENT ID: [id number] RITA HARDEN MD at 1324 CC: [id number] DICTATION DATE: 05/04/17920 [place] [place] OPERATOR: 05/04/17 1034 DIS IN 05/04/17 [place] [id number] [place] [address]
[~2017-05-03 23:43] MED LIST changes: -SINGULAIR10 MG PO
[2017-05-04 00:52] LABS: HEMATOCRIT 34.5 % (42.0-54.0); HEMOGLOBIN 12.1 g/dL (13.5-17.5); LYMPHOCYTES 29.8 % (15-50); MCH 32.1 pg (26.0-34.0); MCHC 35.1 g/dL (31.0-37.0); MCV 91.5 fL (80.0-100.0); MEAN PLATELET VOLUME 7.7 fL (7.4-10.4); NEUTROPHILS 61.1 % (40-80); PLATELET COUNT 133 10x3/uL (130-400); RBC 3.77 10x6/uL (4.20-6.10); RDW 13.4 % (11.5-14.5); WBC 6.5 10x3/uL (4.8-10.8)
[2017-05-04 01:05] LABS: ALBUMIN 3.5 g/dL (3.4-5.0); ALKALINE PHOSPHATASE 39 U/L (46-116); ALT (SGPT) 20 U/L (10-68); CALC OSMOLALITY 280 mosm/kg (275-300); CALCIUM 8.3 mg/dL (8.5-10.1); CARBON DIOXIDE 30.2 mmol/L (21.0-32.0); CHLORIDE - SERUM 101 mmol/L (98-107); CREATININE - SERUM 1.4 mg/dL (0.6-1.3); GLUCOSE 88 mg/dL (74-106); PROTEIN - SERUM 6.7 g/dL (6.4-8.2); SODIUM 138 mmol/L (136-145); UREA NITROGEN 29 mg/dL (7-18); eGFR NON AFRICAN AMERICAN 53 mL/min (90-120)
[2017-05-04 01:13] LABS: APTT 32.8 SECONDS (22.8-39.4); INR 1.07 (0.85-1.17); PROTIME 13.5 SECONDS (11.6-15.0)
[2017-05-04 01:22] LABS: CHOL - HDL RATIO 3.1 ratio (2.3-4.9); CHOLESTEROL, TOTAL 87 mg/dL (0-200); CREATINE KINASE 97 UL (21-232); HDL CHOLESTEROL 28 mg/dL (32-96); LDL CHOLESTEROL 26 mg/dL (0-100); LDL-HDL RATIO 0.9 ratio (1.5-3.5); TRIGLYCERIDE 165 mg/dL (30-200)
[2017-05-04 01:25] LABS: TROPONIN-I 0.101 ng/mL (0.000-0.060)
[2017-05-04] MEDS ORDERED: SINGULAIR10 MG PO (02:13)
[2017-05-04 06:05] VITALS: Ht 198.1 cm; Wt 105.3 kg
[2017-05-04 06:11] VITALS: BP 111/68
[2017-05-04 07:18] LABS: TROPONIN-I 3.504 ng/mL (0.000-0.060)
[2017-05-04 08:36] VITALS: BP 110/70
== END 2017-05-04 15:46 | disposition home or self-care (01) ==
LOC: D.ER 23:43 → D.M2 05-04 01:38 → OBSVTIME 05-04 01:38 → D.M2 05-04 15:46
PROVIDERS: Family Medicine
DX: I21.4 Non-ST elevation (NSTEMI) myocardial infarction (principal); I25.10 Atherosclerotic heart disease of native coronary artery without angina pectoris; Z95.5 Presence of coronary angioplasty implant and graft; I10 Essential (primary) hypertension; E78.5 Hyperlipidemia, unspecified; Z95.0 Presence of cardiac pacemaker; T82.118A Breakdown (mechanical) of other cardiac electronic device, initial encounter; Y83.9 Surgical procedure, unspecified as the cause of abnormal reaction of the patient, or of later complication, without mention of misadventure at the time of the procedure; T82.855A Stenosis of coronary artery stent, initial encounter; I48.91 Unspecified atrial fibrillation

== ENCOUNTER → 2017-08-04 13:20 | Outpatient (CLI) | payer BC, MEDICARE ==
[~2017-08-04 13:20] MED LIST changes: +SINGULAIR10 MG PO
== END | disposition home or self-care (01) ==
LOC: D.CT 13:20
DX: G62.9 Polyneuropathy, unspecified (principal); M25.50 Pain in unspecified joint

== ENCOUNTER → 2017-08-10 15:53 | Outpatient (CLI) | payer BC, MEDICARE | END | disposition home or self-care (01) | LOC: D.LAB 15:53 | DX: N40.0 Benign prostatic hyperplasia without lower urinary tract symptoms (principal) ==

== ENCOUNTER → 2017-09-08 14:55 | Outpatient (CLI) | payer BC, MEDICARE | END | disposition home or self-care (01) | LOC: D.RAD 12:45 | DX: M25.571 Pain in right ankle and joints of right foot (principal) ==

== ENCOUNTER 2018-01-20 07:05 | Day surgery (SDC) | payer BC, MEDICARE ==
[2018-01-19 16:16] LABS: HEMOGLOBIN 12.4 g/dL (13.5-17.5); MCHC 34.4 g/dL (31.0-37.0); MCV 92.8 fL (80.0-100.0); MEAN PLATELET VOLUME 8.7 fL (7.4-10.4); RBC 3.88 10x6/uL (4.20-6.10); RDW 12.9 % (11.5-14.5); WBC 6.6 10x3/uL (4.8-10.8)
[2018-01-19 16:35] LABS: CALC OSMOLALITY 278 mosm/kg (275-300); CALCIUM 8.9 mg/dL (8.5-10.1); CARBON DIOXIDE 32.5 mmol/L (21.0-32.0); CHLORIDE - SERUM 102 mmol/L (98-107); GLUCOSE 111 mg/dL (74-106); POTASSIUM - SERUM 4.5 mmol/L (3.5-5.1); SODIUM 138 mmol/L (136-145); UREA NITROGEN 18 mg/dL (7-18); eGFR NON AFRICAN AMERICAN 78 mL/min (90-120)
[~2018-01-20] VITALS: Ht 198.1 cm; Wt 101.6 kg
--- NOTE | ~2018-01-20 | OP ---
PATIENT NAME: NOMI ANGELA MEDICAL RECORD: [id number] :49 LOCATION:D.OPS ADMISSION DATE: SURGEON: RUTH SAMUELS MD DATE OF OPERATION: 01/20/2018 PREOPERATIVE DIAGNOSES: 1. Left inguinal lymphadenopathy. 2. Hypertension. 3. Coronary artery disease. 4. Asthma. 5. Cardiac pacemaker in situ. POSTOPERATIVE DIAGNOSES: 1. Left inguinal lymphadenopathy. 2. Hypertension. 3. Coronary artery disease. 4. Asthma. 5. Cardiac pacemaker in situ. PROCEDURE: Excisional biopsy of left inguinal lymph node. SURGEON: Ruth Samuels MD REPORT OF PROCEDURE: The patient's left groin was prepped and draped in sterile fashion. An oblique incision was made above the inguinal ligament. Electrocautery was used to dissect through the subcutaneous tissues down to an enlarged inguinal lymph node. This lymph node was completely excised and sent off for permanent specimen. We irrigated out the wound and assured there was no sign of any bleeding. At this point, the subcutaneous tissues were reapproximated with interrupted 3-0 Vicryl and the skin was closed with running subcutaneous 5-0 Monocryl. COMPLICATIONS: None. CONDITION: Stable. ANESTHESIA: TIVA and local. BLOOD LOSS: Minimal. TRANSINT:[id number] Voice Confirmation ID: [id number] DOCUMENT ID: [id number] RUTH SAMUELS MD at 1409 CC: IRAIS NIXON [id number] DICTATION DATE: 01/20/18 0959 SWIM INSTRUCTOR: 01/20/18 1108 [facility] 01/20/[address] [address]
[~2018-01-20 07:05] MED LIST changes: +ASCORBIC ACID500 MG PO; +ASPIRIN EC81 M1 PO; +CYMBALTA60 MG PO; +DILAUDID8 MG PO; +FUROSEMIDE20 MG PO; -LASIX40 MG PO; +LYRICA150 MG PO; +[UNRECOGNIZED DRUG - OTHER] PO
[2018-01-20 07:52] VITALS: BP 92/63; Ht 198.1 cm; Wt 101.6 kg
[2018-01-20] MEDS ORDERED: NORCO 10-325 TA1 TAB PO (09:56)
== END 2018-01-20 11:00 | disposition home or self-care (01) ==
LOC: D.OPS 07:05 → D.PAN 09:00 → D.OPS 10:00
PROVIDERS: Surgery
DX: R59.0 Localized enlarged lymph nodes (principal); I10 Essential (primary) hypertension; I25.10 Atherosclerotic heart disease of native coronary artery without angina pectoris; J45.909 Unspecified asthma, uncomplicated; Z95.0 Presence of cardiac pacemaker; Z01.812 Encounter for preprocedural laboratory examination

== ENCOUNTER 2018-04-20 02:50 | Inpatient (IN) | payer BC, MEDICARE ==
[~2018-04-20] VITALS: Ht 198.1 cm; Wt 97.5 kg
[2018-04-20] VITALS (13 sets, daily range): BP systolic 99–121; BP diastolic 53–73; BMI 24.8
[~2018-04-20 02:50] MED LIST changes: +NORCO 10-325 TA1 TAB PO
[2018-04-20 03:31] LABS: BASOPHILS 0.1 % (0-2); EOSINOPHILS 3.4 % (0-7); HEMATOCRIT 32.9 % (42.0-54.0); IMMATURE GRANULOCYTES 0.1 % (0-5); LYMPHOCYTES 18.9 % (15-50); MCH 30.4 pg (26.0-34.0); MCHC 33.4 g/dL (31.0-37.0); MCV 90.9 fL (80.0-100.0); MEAN PLATELET VOLUME 8.4 fL (7.4-10.4); NEUTROPHILS 70.5 % (40-80); PLATELET COUNT 121 10x3/uL (130-400); RBC 3.62 10x6/uL (4.20-6.10); RDW 14.2 % (11.5-14.5); WBC 6.7 10x3/uL (4.8-10.8)
[2018-04-20 03:44] LABS: APTT 34.4 SECONDS (22.8-39.4); INR 1.14 (0.85-1.17); PROTIME 14.1 SECONDS (11.6-15.0)
[2018-04-20 03:46] LABS: ALBUMIN 3.3 g/dL (3.4-5.0); ANION GAP 10.2 mmol/L (8-16); BILIRUBIN - TOTAL 0.53 mg/dL (0.2-1.3); CALCIUM 8.2 mg/dL (8.5-10.1); CARBON DIOXIDE 28.2 mmol/L (21.0-32.0); CREATININE - SERUM 1.2 mg/dL (0.6-1.3); POTASSIUM - SERUM 4.4 mmol/L (3.5-5.1)
[2018-04-20] MEDS ORDERED: NEURONTIN800 MG PO (04:31)
[2018-04-20] MEDS ORDERED: DILAUDID8 MG PO (14:27)
[2018-04-21 04:00] VITALS: BP 138/63
[2018-04-21 05:42] LABS: BASOPHILS 0.1 % (0-2); EOSINOPHILS 1.9 % (0-7); HEMATOCRIT 28.6 % (42.0-54.0); HEMOGLOBIN 9.6 g/dL (13.5-17.5); IMMATURE GRANULOCYTES 0.2 % (0-5); MCH 30.1 pg (26.0-34.0); MCHC 33.6 g/dL (31.0-37.0); MCV 89.7 fL (80.0-100.0); MEAN PLATELET VOLUME 8.7 fL (7.4-10.4); MONOCYTES 9.1 % (2-11); NEUTROPHILS 74.7 % (40-80); PLATELET COUNT 126 10x3/uL (130-400); RBC 3.19 10x6/uL (4.20-6.10); RDW 14.3 % (11.5-14.5)
[2018-04-21 05:52] LABS: WBC 8.8 10x3/uL (4.8-10.8)
[2018-04-21 06:04] LABS: CALC OSMOLALITY 273 mosm/kg (275-300); CALCIUM 7.9 mg/dL (8.5-10.1); CARBON DIOXIDE 27.2 mmol/L (21.0-32.0); CHLORIDE - SERUM 101 mmol/L (98-107); GLUCOSE 121 mg/dL (74-106); POTASSIUM - SERUM 4.2 mmol/L (3.5-5.1); SODIUM 135 mmol/L (136-145); eGFR NON AFRICAN AMERICAN 78 mL/min (90-120)
[2018-04-21 06:07] LABS: UREA NITROGEN 22 mg/dL (7-18)
[2018-04-21 08:37] VITALS: BP 109/52
[2018-04-21 12:26] VITALS: BP 105/59
--- NOTE | 2018-04-21 15:26 | MORECARE ---
CASE MANAGEMENT DISCHARGE SUMMARY PATIENT: NOMI ANGELA UNIT: [id number] ADM DATE: 04/20/18 AGE: 72 : [birth year] SEX: M ROOM/BED: D.2213 AUTHOR: MARGY MURRAY PHYSICIAN: REFERRING PHYSICIAN: JOSEFINA RUBIO MD DATE OF SERVICE: 04/21/18 Discharge Plan Patient Name: NOMI ANGELA Facility: [facility]:[place] : 1945 Planned Disposition: Anticipated Discharge Date: Discharge Date: Expected LOS: Initial Reviewer: [email or web address] Initial Review Date: 04/21/2018 Generated: 04/21/18 4:26 pm Comments DCP- Discharge Planning Updated by [email or web address]: Gladis Aranda on 04/21/18 2:[address] Patient Name: NOMI ANGELA Admission Status: ER Accout number: [id number] Admission Date: 04-20-2018 : 1945 Admission Diagnosis: Attending: JOSEFINA RUBIO Current LOS: 1 Anticipated DC Date: Planned Disposition: Primary Insurance: [employer] [facility] Discharge Planning Comments: CM MET WITH PATIENT'S DAUGHTER OPAL ABOUT DC PLANNING/NEEDS. PATIENT HAS HAD PAIN MEDICINE AND WAS SLEEPING. JOSEPH FOR HH LEFT WITH DAUGHTER TO GIVE TO IF HE NEEDS HH AT DC. DAUGHTER STATES HAS CPAP AT HOME BUT NO OTHER EQUIPMENT. MAY NEED WALKER AT TIME OF DC. CM WILL FOLLOW AND ASSIST NEEDED WITH DC PLANNING/NEEDS. Coat Operator: Gladis Aranda DCPIA - Discharge Planning Initial Assessment Updated by [email or web address]: Gladis Aranda on 04/21/18 3:18 pm * Is the patient Alert and Oriented? No * PCP NIXON * Pharmacy [facility] [address] * Preadmission Environment Home with Family * ADLs Independent * Equipment CPAP * List name and contact numbers for known caregivers / representatives who currently or will assist patient after discharge: ASTRID, , OPAL, DAUGHTER, * Community resources currently utilized None * Additional services required to return to the preadmission environment? Yes Patient Name: NOMI ANGELA Page [id number] at 1526 All edits/amendments must be made on the electronic document DICTATION DATE: 04/21/18 1526 DISPATCHER CHIEF COAL SLURRY: CHANDRIKA 04/21/18 1526 RPT#: [id number] DC DATE: STATUS: ADM IN [facility] [address] [place] [address] END OF REPORT
[2018-04-21 17:21] VITALS: BP 99/50
[2018-04-21 18:27] VITALS: Ht 198.1 cm; Wt 97.5 kg
[2018-04-21 20:00] VITALS: BP 140/68
[2018-04-22 04:00] VITALS: BP 158/64
[2018-04-22 05:46] LABS: BASOPHILS 0.1 % (0-2); HEMATOCRIT 25.6 % (42.0-54.0); HEMOGLOBIN 8.6 g/dL (13.5-17.5); IMMATURE GRANULOCYTES 0.2 % (0-5); LYMPHOCYTES 18.6 % (15-50); MCH 30.3 pg (26.0-34.0); MCHC 33.6 g/dL (31.0-37.0); MCV 90.1 fL (80.0-100.0); MEAN PLATELET VOLUME 8.6 fL (7.4-10.4); NEUTROPHILS 69.1 % (40-80); RBC 2.84 10x6/uL (4.20-6.10); RDW 14.7 % (11.5-14.5); WBC 8.7 10x3/uL (4.8-10.8)
[2018-04-22 06:33] LABS: ANION GAP 9.3 mmol/L (8-16); CARBON DIOXIDE 29.7 mmol/L (21.0-32.0); CREATININE - SERUM 1.1 mg/dL (0.6-1.3); PLATELET COUNT 95 10x3/uL (130-400)
[2018-04-22 08:00] VITALS: BP 127/79
[2018-04-22 08:12] LABS: PLATELET ESTIMATE DECREASED
[2018-04-22 08:13] LABS: ANISOCYTOSIS OCC; POLYCHROMASIA OCC
--- NOTE | 2018-04-22 09:35 | MORECARE ---
CASE MANAGEMENT DISCHARGE SUMMARY PATIENT: NOMI ANGELA UNIT: [id number] ADM DATE: 04/20/18 AGE: 72 : 47 SEX: M ROOM/BED: D.2213 AUTHOR: TERRIDOC PHYSICIAN: REFERRING PHYSICIAN: JOSEFINA RUBIO MD DATE OF SERVICE: 04/22/18 Discharge Plan Patient Name: NOMI ANGELA [facility] : 1945 Planned Disposition: Anticipated Discharge Date: Discharge Date: Expected LOS: Initial Reviewer: [id number] Initial Review Date: 04/21/2018 Generated: 04/22/18 10:35 am Comments DCP- Discharge Planning Updated by [email or web address]: Gladis Aranda on 04/21/18 2:[address] Patient Name: NOMI ANGELA Admission Status: ER Accout number: [id number] Admission Date: 04-20-2018 : 1945 Admission Diagnosis: Attending: JOSEFNIA RUBIO Current LOS: 1 Anticipated DC Date: Planned Disposition: Primary Insurance: [employer] [facility] Discharge Planning Comments: CM MET WITH PATIENT'S DAUGHTER OPAL ABOUT DC PLANNING/NEEDS. PATIENT HAS HAD PAIN MEDICINE AND WAS SLEEPING. JOSEPH FOR HH LEFT WITH DAUGHTER TO GIVE TO IF HE NEEDS HH AT DC. DAUGHTER STATES HAS CPAP AT HOME BUT NO OTHER EQUIPMENT. MAY NEED WALKER AT TIME OF DC. CM WILL FOLLOW AND ASSIST NEEDED WITH DC PLANNING/NEEDS. Water Valve Mechanic: Gladis Aranda DCPIA - Discharge Planning Initial Assessment Updated by [email or web address]: Gladis Aranda on 04/21/18 3:18 pm * Is the patient Alert and Oriented? No * PCP NIXON * Pharmacy [facility] [address] * Preadmission Environment Home with Family * ADLs Independent * Equipment CPAP * List name and contact numbers for known caregivers / representatives who currently or will assist patient after discharge: ASTRID, , OPAL, DAUGHTER, * Community resources currently utilized None * Additional services required to return to the preadmission environment? Yes External Providers External Provider: [facility] Next Contact Date: Service Request Date: Service Type: Resolution: Reviewer: Comments: Last DP export: 04/21/18 2:26 pm Patient Name: NOMI ANGELA Page [phone] at 0935 All edits/amendments must be made on the electronic document DICTATION DATE: 04/22/18934 DATA CODER OPERATOR: CHANDRIKA 04/22/18934 RPT#: [id number] DC DATE: STATUS: ADM IN [facility] [address] [place] [address] END OF REPORT
--- NOTE | 2018-04-22 09:42 | MORECARE ---
CASE MANAGEMENT DISCHARGE SUMMARY PATIENT: NOMI ANGELA UNIT: [id number] ADM DATE: 04/20/18 AGE: 72 : 47 SEX: M ROOM/BED: D.2213 AUTHOR: TERRIDOC PHYSICIAN: REFERRING PHYSICIAN: JOSEFINA RUBIO MD DATE OF SERVICE: 04/22/18 Discharge Plan Patient Name: NOMI ANGELA [facility] [facility] 1945 Planned Disposition: Anticipated Discharge Date: Discharge Date: Expected LOS: Initial Reviewer: [id number] Initial Review Date: 04/21/2018 Generated: 04/22/18 10:42 am Comments DCP- Discharge Planning Updated by [id number]: Gladis Aranda on 04/21/18 2:[address] Patient Name: NOMI ANGELA Admission Status: ER Accout number: [id number] Admission Date: 04-20-2018 : 1945 Admission Diagnosis: Attending: JOSEFINA RUBIO Current LOS: 1 Anticipated DC Date: Planned Disposition: Primary Insurance: [email or web address] [facility] Discharge Planning Comments: CM MET WITH PATIENT'S DAUGHTER OPAL ABOUT DC PLANNING/NEEDS. PATIENT HAS HAD PAIN MEDICINE AND WAS SLEEPING. JOSEPH FOR HH LEFT WITH DAUGHTER TO GIVE TO IF HE NEEDS HH AT DC. DAUGHTER STATES HAS CPAP AT HOME BUT NO OTHER EQUIPMENT. MAY NEED WALKER AT TIME OF DC. CM WILL FOLLOW AND ASSIST NEEDED WITH DC PLANNING/NEEDS. Tattoo Designer: Gladis Aranda DCPIA - Discharge Planning Initial Assessment Updated by [id number]: Gladis Aranda on 04/21/18 3:18 pm * Is the patient Alert and Oriented? No * PCP NIXON * Pharmacy [facility] [address] * Preadmission Environment Home with Family * ADLs Independent * Equipment CPAP * List name and contact numbers for known caregivers / representatives who currently or will assist patient after discharge: ASTRID, , OPAL, DAUGHTER, * Community resources currently utilized None * Additional services required to return to the preadmission environment? Yes External Providers External Provider: [facility] Next Contact Date: Service Request Date: Service Type: Resolution: Reviewer: Comments: Coverage Notice Reviewer: [id number] - Gladis Aranda Notice Issued Date-Time: 04/22/2018 9:37 Notice Type: Patient Choice Letter Notice Delivered To: Family Member Relationship to Patient: Spouse Production Finisher Name: Delivery Method: HAND - Hand Delivered Merry Days: Prior Verbal Notification: Recipient Understood Notice: Yes Recipient Signature: Yes Med Rec Note Co-signed by Attending: Coverage Notice Comment: [facility] Last DP export: 04/22/18 8:35 am Patient Name: NOMI ANGELA Page 48898 at 0942 All edits/amendments must be made on the electronic document DICTATION DATE: 04/22/18941 TICKET AGENT: CHANDRIKA 04/22/18941 RPT#: [id number] DC DATE: STATUS: ADM IN [facility] [address] [place] [address] END OF REPORT
--- NOTE | 2018-04-22 09:50 | MORECARE ---
CASE MANAGEMENT DISCHARGE SUMMARY PATIENT: NOMI ANGELA UNIT: [id number] ADM DATE: 04/20/18 AGE: 72 : 47 SEX: M ROOM/BED: D.2213 AUTHOR: TERRIDOC PHYSICIAN: REFERRING PHYSICIAN: JOSEFINA RUBIO MD DATE OF SERVICE: 04/22/18 Discharge Plan Patient Name: NOMI ANGELA Facility[facility]:[place] : 1945 Planned Disposition: Fdc Facility Anticipated Discharge Date: 04/25/18 Discharge Date: Expected LOS: 5 Initial Reviewer: [id number] Initial Review Date: 04/21/2018 Generated: 04/22/18 10:50 am Comments DCP- Discharge Planning Updated by [id number]: Gladis Aranda on 04/22/18 8:[address] Patient Name: NOMI ANGELA Admission Status: ER Accout number: [id number] Admission Date: 04-20-2018 : 1945 Admission Diagnosis: Attending: JOSEFINA RUBIO Current LOS: 2 Anticipated DC Date: 04-25-2018 Planned Disposition: Fdc Facility Primary Insurance: [employer] EMP Discharge Planning Comments: PATIENT SIGNED JOSEPH FOR TO GO TO [facility] SNF. SNF CALLED AND DOCUMENTS FAXED. WOOL HANDLER STATES POSSIBLE DC OF WEDNESDAY FROM THE HOSPITAL. WAITING FOR APPROVAL FROM SNF NOW. Counter Intelligence Technician: Gladis Aranda DCP- Discharge Planning Updated by [id number]: Gladis Aranda on 04/21/18 2:[address] Patient Name: NOMI ANGELA Admission Status: ER Accout number: [id number] Admission Date: 04-20-2018 : 1945 Admission Diagnosis: Attending: JOSEFINA RUBIO Current LOS: 1 Anticipated DC Date: Planned Disposition: Primary Insurance: [employer]ELLA EMP Discharge Planning Comments: CM MET WITH PATIENT'S DAUGHTER OPAL ABOUT DC PLANNING/NEEDS. PATIENT HAS HAD PAIN MEDICINE AND WAS SLEEPING. JOSEPH FOR HH LEFT WITH DAUGHTER TO GIVE TO IF HE NEEDS HH AT DC. DAUGHTER STATES HAS CPAP AT HOME BUT NO OTHER EQUIPMENT. MAY NEED WALKER AT TIME OF DC. CM WILL FOLLOW AND ASSIST NEEDED WITH DC PLANNING/NEEDS. Counter Intelligence Technician: Gladis Aranda DCPIA - Discharge Planning Initial Assessment Updated by [id number]: Gladis Aranda on 04/21/18 3:18 pm * Is the patient Alert and Oriented? No * PCP TIFFANI * Pharmacy [facility] [address] * Preadmission Environment Home with Family * ADLs Independent * Equipment CPAP * List name and contact numbers for known caregivers / representatives who currently or will assist patient after discharge: ASTRID, , OPAL, DAUGHTER, * Community resources currently utilized None * Additional services required to return to the preadmission environment? Yes Coverage Notice Reviewer: [id number] - Gladis Aranda Notice Issued Date-Time: 04/22/2018 9:37 Notice Type: Patient Choice Letter Notice Delivered To: Family Member Relationship to Patient: Spouse Veterinary Technology Instructor Name: Delivery Method: HAND - Hand Delivered Merry Days: Prior Verbal Notification: Recipient Understood Notice: Yes Recipient Signature: Yes Med Rec Note Co-signed by Attending: Coverage Notice Comment: [facility] Last DP export: 04/22/18 8:42 am Patient Name: NOMI ANGELA Page [phone] at 0950 All edits/amendments must be made on the electronic document DICTATION DATE: 04/22/18949 LIFE SCIENCES DIRECTOR: CHANDRIKA 04/22/18949 RPT#: [id number] DC DATE: STATUS: ADM IN [facility] [address] [place] [address] END OF REPORT
[2018-04-22 12:00] VITALS: BP 134/54
--- NOTE | 2018-04-22 14:15 | MORECARE ---
CASE MANAGEMENT DISCHARGE SUMMARY PATIENT: NOMI ANGELA UNIT: [id number] ADM DATE: 04/20/18 AGE: 72 : 47 SEX: M ROOM/BED: D.2213 AUTHOR: TERRIDOC PHYSICIAN: REFERRING PHYSICIAN: JOSEFINA RUBIO MD DATE OF SERVICE: 04/22/18 Discharge Plan Patient Name: NOMI ANGELA Facility: [facility]:[place] : 1945 Planned Disposition: Snf Facility Anticipated Discharge Date: 04/25/18 Discharge Date: Expected LOS: 5 Initial Reviewer: [id number] Initial Review Date: 04/21/2018 Generated: 04/22/18 3:14 pm Comments DCP- Discharge Planning Updated by [email or web address]: Gladis Aranda on 04/22/18 8:[address] Patient Name: NOMI ANGELA Admission Status: ER Accout number: [id number] Admission Date: 04-20-2018 : 1945 Admission Diagnosis: Attending: JOSEFINA RUBIO Current LOS: 2 Anticipated DC Date: 04-25-2018 Planned Disposition: Snf Facility Primary Insurance: [employer] EMP Discharge Planning Comments: PATIENT SIGNED JOSEPH FOR TO GO TO [facility] SNF. SNF CALLED AND DOCUMENTS FAXED. MILK INSPECTOR STATES POSSIBLE DC OF WEDNESDAY FROM THE HOSPITAL. WAITING FOR APPROVAL FROM SNF NOW. Visual Arts Teacher: Gladis Aranda DCP- Discharge Planning Updated by [email or web address]: Gladis Aranda on 04/21/18 2:[address] Patient Name: NOMI ANGELA Admission Status: ER Accout number: [id number] Admission Date: 04-20-2018 : 1945 Admission Diagnosis: Attending: JOSEFINA RUBIO Current LOS: 1 Anticipated DC Date: Planned Disposition: Primary Insurance: [employer] CAPELLA EMP Discharge Planning Comments: CM MET WITH PATIENT'S DAUGHTER OPAL ABOUT DC PLANNING/NEEDS. PATIENT HAS HAD PAIN MEDICINE AND WAS SLEEPING. JOSEPH FOR HH LEFT WITH DAUGHTER TO GIVE TO IF HE NEEDS HH AT DC. DAUGHTER STATES HAS CPAP AT HOME BUT NO OTHER EQUIPMENT. MAY NEED WALKER AT TIME OF DC. CM WILL FOLLOW AND ASSIST NEEDED WITH DC PLANNING/NEEDS. Visual Arts Teacher: Gladis Aranda DCPIA - Discharge Planning Initial Assessment Updated by [id number]: Gladis Aranda on 04/21/18 3:18 pm * Is the patient Alert and Oriented? No * PCP NIXON * Pharmacy [facility] [address] * Preadmission Environment Home with Family * ADLs Independent * Equipment CPAP * List name and contact numbers for known caregivers / representatives who currently or will assist patient after discharge: ASTRID, , OPAL, DAUGHTER, * Community resources currently utilized None * Additional services required to return to the preadmission environment? Yes External Providers [facility] Contact Date: Service Request Date: Service Type: Resolution: Reviewer: Comments: Coverage Notice Reviewer: [id number] - Gladisdeclan Aranda Notice Issued Date-Time: 04/22/2018 9:37 Notice Type: Patient Choice Letter Notice Delivered To: Family Member Relationship to Patient: Spouse Optical Dispenser Name: Delivery Method: HAND - Hand Delivered Merry Days: Prior Verbal Notification: Recipient Understood Notice: Yes Recipient Signature: Yes Med Rec Note Co-signed by Attending: Coverage Notice Comment: [facility] Last DP export: 04/22/18 8:50 am Patient Name: NOMI ANGELA Page 47553 at 1415 All edits/amendments must be made on the electronic document DICTATION DATE: 04/22/18 1414 DIRECTOR DIETETICS DEPARTMENT: CHANDRIKA 04/22/18 1414 RPT#: [id number] DC DATE: STATUS: ADM IN [facility] [address] [place] [address] END OF REPORT
--- NOTE | 2018-04-22 14:24 | MORECARE ---
CASE MANAGEMENT DISCHARGE SUMMARY PATIENT: NOMI ANGELA UNIT: [id number] ADM DATE: 04/20/18 AGE: 72 : 47 SEX: M ROOM/BED: D.2213 AUTHOR: TERRI,DOC PHYSICIAN: REFERRING PHYSICIAN: JOSEFINA RUBIO MD DATE OF SERVICE: 04/22/18 Discharge Plan Patient Name: NOMI ANGELA Facility: [facility]:[place] : 1945 Planned Disposition: Mcfp Facility Anticipated Discharge Date: 04/25/18 Discharge Date: Expected LOS: 5 Initial Reviewer: [email or web address] Initial Review Date: 04/21/2018 Generated: 04/22/18 3:24 pm Comments DCP- Discharge Planning Updated by [email or web address]: Gladis Aranda on 04/22/18 1:[address] Patient Name: NOMI ANGELA Admission Status: ER Accout number: [id number] Admission Date: 04-20-2018 : 1945 Admission Diagnosis: Attending: JOSEFINA RUBIO Current LOS: 2 Anticipated DC Date: 04-25-2018 Planned Disposition: Mcfp Facility Primary Insurance: [employer]ELLA EMP Discharge Planning Comments: PATIENT SIGNED JOSEPH FOR TO GO TO [facility] SNF. SNF CALLED AND DOCUMENTS FAXED. CONSTRUCTION RECRUITER STATES POSSIBLE DC OF WEDNESDAY FROM THE HOSPITAL. WAITING FOR APPROVAL FROM SNF NOW. Ticket Maker: Gladis Aranda Appended by Gladis Aranda on 04/22/2018 14:17 HOUSEHOLD MANAGER: PATIENT FAMILY WANT[facility] FOR [facility]PATIENT REH[facility]. CM SPOKE WITH AVELINO AT REHAB AND DOCUMENTS FAXED TO HER, SHE STATES SHE WILL COME OUT AND SEE PATIENT. PATIENT MAY POSSIBLY BE DISCHARGED WEDNESDAY IF MEDICALLY STABLE. DCP- Discharge Planning Updated by [id number]: Gladis Aranda on 04/21/18 2:[address] Patient Name: NOMI ANGELA Admission Status: ER Accout number: [id number] Admission Date: 04-20-2018 : 1945 Admission Diagnosis: Attending: JOSEFINA RUBIO Current LOS: 1 Anticipated DC Date: Planned Disposition: Primary Insurance: [employer]ELLA EMP Discharge Planning Comments: CM MET WITH PATIENT'S DAUGHTER OPAL ABOUT DC PLANNING/NEEDS. PATIENT HAS HAD PAIN MEDICINE AND WAS SLEEPING. JOSEPH FOR HH LEFT WITH DAUGHTER TO GIVE TO IF HE NEEDS HH AT DC. DAUGHTER STATES HAS CPAP AT HOME BUT NO OTHER EQUIPMENT. MAY NEED WALKER AT TIME OF DC. CM WILL FOLLOW AND ASSIST NEEDED WITH DC PLANNING/NEEDS. Ticket Maker: Gladis Aranda DCPIA - Discharge Planning Initial Assessment Updated by [id number]: Gladis Aranda on 04/21/18 3:18 pm * Is the patient Alert and Oriented? No * PCP NIXON * Pharmacy [facility] [address] * Preadmission Environment Home with Family * ADLs Independent * Equipment CPAP * List name and contact numbers for known caregivers / representatives who currently or will assist patient after discharge: ASTRID, , OPAL, DAUGHTER, * Community resources currently utilized None * Additional services required to return to the preadmission environment? Yes Coverage Notice Reviewer: [id number] - Gladis Aranda Notice Issued Date-Time: 04/22/2018 9:37 Notice Type: Patient Choice Letter Notice Delivered To: Family Member Relationship to Patient: Spouse Pellet Machine Operator Name: Delivery Method: HAND - Hand Delivered Merry Days: Prior Verbal Notification: Recipient Understood Notice: Yes Recipient Signature: Yes Med Rec Note Co-signed by Attending: Coverage Notice Comment: [facility] Last DP export: 04/22/18 1:14 pm Patient Name: NOMI ANGELA Page [phone] at 1424 All edits/amendments must be made on the electronic document DICTATION DATE: 04/22/18 142 SNIPPER: CHANDRIKA 04/22/18 1423 RPT#: [id number] DC DATE: STATUS: ADM IN [facility] [address] [place] [address] END OF REPORT
[2018-04-22 14:32] LABS: AMORPHOUS SEDIMENT <1+ /lpf (NONE SEEN); APPEARANCE SL CLDY (CLEAR); BILIRUBIN NEGATIVE (NEGATIVE); COLOR YELLOW (YELLOW); EPITHELIAL CELLS 0-5 /hpf (0-5); GLUCOSE NEGATIVE (NEGATIVE); KETONE SMALL mg/dL (NEGATIVE); NITRITE NEGATIVE (NEGATIVE); PROTEIN 1+ mg/dL (NEGATIVE); RED CELLS - URINE 0-5 /hpf (0-5); SPECIFIC GRAVITY 1.015 (1.005-1.020); WHITE CELLS - URINE 0-5 /hpf (0-5)
[2018-04-22 16:12] VITALS: BP 133/49
[2018-04-22 19:00] VITALS: BP 98/47
[2018-04-23 00:46] VITALS: BP 125/65
[2018-04-23 05:24] VITALS: BP 150/65
[2018-04-23 07:12] LABS: BASOPHILS 0.1 % (0-2); EOSINOPHILS 1.1 % (0-7); HEMATOCRIT 23.3 % (42.0-54.0); HEMOGLOBIN 7.9 g/dL (13.5-17.5); IMMATURE GRANULOCYTES 0.1 % (0-5); LYMPHOCYTES 15.9 % (15-50); MCH 30.6 pg (26.0-34.0); MCHC 33.9 g/dL (31.0-37.0); MCV 90.3 fL (80.0-100.0); MONOCYTES 7.5 % (2-11); NEUTROPHILS 75.3 % (40-80); RBC 2.58 10x6/uL (4.20-6.10); RDW 14.5 % (11.5-14.5); WBC 7.3 10x3/uL (4.8-10.8)
[2018-04-23 07:14] LABS: PLATELET COUNT 118 10x3/uL (130-400)
[2018-04-23 07:30] LABS: CALC OSMOLALITY 278 mosm/kg (275-300); CALCIUM 8.1 mg/dL (8.5-10.1); CARBON DIOXIDE 27.3 mmol/L (21.0-32.0); CHLORIDE - SERUM 102 mmol/L (98-107); CREATININE - SERUM 0.9 mg/dL (0.6-1.3); GLUCOSE 117 mg/dL (74-106); POTASSIUM - SERUM 3.8 mmol/L (3.5-5.1); SODIUM 138 mmol/L (136-145); UREA NITROGEN 18 mg/dL (7-18); eGFR NON AFRICAN AMERICAN 89 mL/min (90-120)
[2018-04-23 09:33] VITALS: BP 105/64
[2018-04-23 09:53] VITALS: BP 105/64
--- NOTE | 2018-04-23 11:43 | OP ---
PATIENT NAME: NOMI ANGELA MEDICAL RECORD: [id number] :[birth year] LOCATION:[address] ADMISSION DATE:04/20/18 SURGEON: JUDY PANDYA MD DATE OF OPERATION: 04/20/2018 PREOPERATIVE DIAGNOSIS: Displaced femoral neck fracture of the right hip. POSTOPERATIVE DIAGNOSIS: Displaced femoral neck fracture of the right hip. PROCEDURE: Bipolar endoprosthetic replacement of the right hip for right femoral neck fracture, displaced. SURGEON: Judy Pandya MD AUTOMATION QTP TESTER: Thierno Hong MD ANESTHESIA: General. INTRAOPERATIVE COMPLICATIONS: None. SUMMARY OF PATHOLOGIC FINDINGS: The patient did indeed have a complete displaced fracture of the femoral neck of the right hip consistent with the preoperative radiographs and diagnosis, and the patient was musculoskeletally very large on the inside. IMPLANTS USED: Accolade II TMZF coated stem, size 7. Size 56 bipolar component with an inner diameter of 26 and a -3 offset for the outer diameter femoral head. ESTIMATED BLOOD LOSS: 200 cc. OPERATIVE SUMMARY IN DETAIL: After obtaining the appropriate preoperative orthopedic surgery consent as well as anesthetic consultation, evaluation, and clearance, the patient was brought to the operating room and placed on the operating table in supine position. After general laryngeal mask airway was administered, the patient was placed in left lateral decubitus position. All pressure points well padded to include down leg peroneal pad as well as axillary roll. The patient was held firmly to the operating table using the vacuum pack suction system. Right lower extremity and hip were then prepped and draped in routine sterile fashion. Curvilinear incision made over the greater trochanter, taken down to the level of IT band, which was split in line with the fibers of the IT band to reveal what appeared to be an all gluteal sling tear with abnormal anatomy across the lateral aspect of the trochlea. This was incised and saved for later saved for later reapproximation and fixation gluteus medius and minimus were then reflected anteriorly to reveal the hip capsule was split in a T-type fashion and saved for later reapproximation. The patient's fracture hematoma was evacuated. Femoral neck cut was made using the femoral neck cutting guide for the Accolade II stem. At this point, the patient's femoral head was taken out in its entirety without fragmentation and measured at a 56 very large copious irrigation and removal of bone fragments of the acetabulum were then followed by serial and sequential reaming and broaching of the proximal femur for a size 7 Accolade II stem. The size 7 Accolade II stem was put in place. Trial was undertaken, it was felt that the -3 was the most appropriate for spiritism of the patient's leg lengths. The articulated components were then tamped into place the Marshall taper. The hip was reduced and OPERATIVE REPORT [id number] NOMI ANGELA taken through range of motion and found to be adequately stable in all planes. Intraoperative radiographs were taken that showed excellent leg length spiritism with good fit and fill in all planes and all components. Having completed this, copious irrigation was followed by treating of the deep wound with vancomycin and tobramycin powder the gluteus medius minimus was then reattached transosseously to the greater trochanter. The patient's irregular deep gluteal sling was then reapproximated again with #5 Ethibond. This was then followed by closure of the IT band with #2 Ethibond, #1 Vicryl, 2-0 Vicryl and skin jose. Sterile dressings were applied. Tourniquet was deflated. The patient was awakened, taken to recovery room in stable condition. All final needle and sponge counts were correct. TRANSINT:[id number] Voice Confirmation ID: [id number] DOCUMENT ID: [id number] JUDY PANDYA MD at 1143 CC: [id number] DICTATION DATE: 04/22/18 1125 DEBLOCKER: 04/22/18 1154 ADM IN [facility] [address] [place] [address]
[2018-04-23 16:00] VITALS: BP 114/62
[2018-04-23 20:42] VITALS: BP 85/48
[2018-04-24 04:32] VITALS: BP 121/56
[2018-04-24 08:23] LABS: BASOPHILS 0.2 % (0-2); EOSINOPHILS 4.2 % (0-7); IMMATURE GRANULOCYTES 0.2 % (0-5); LYMPHOCYTES 22.6 % (15-50); MCH 29.9 pg (26.0-34.0); MCHC 34.2 g/dL (31.0-37.0); MEAN PLATELET VOLUME 8.9 fL (7.4-10.4); MONOCYTES 6.4 % (2-11); NEUTROPHILS 66.4 % (40-80); PLATELET COUNT 136 10x3/uL (130-400); RDW 14.9 % (11.5-14.5); WBC 5.9 10x3/uL (4.8-10.8)
[2018-04-24 08:26] LABS: HEMATOCRIT 28.4 % (42.0-54.0); HEMOGLOBIN 9.7 g/dL (13.5-17.5); MCV 87.7 fL (80.0-100.0); RBC 3.24 10x6/uL (4.20-6.10)
[2018-04-24 08:38] LABS: CALC OSMOLALITY 276 mosm/kg (275-300); CARBON DIOXIDE 28.5 mmol/L (21.0-32.0); CHLORIDE - SERUM 101 mmol/L (98-107); CREATININE - SERUM 0.9 mg/dL (0.6-1.3); GLUCOSE 105 mg/dL (74-106); POTASSIUM - SERUM 3.4 mmol/L (3.5-5.1); SODIUM 138 mmol/L (136-145); UREA NITROGEN 15 mg/dL (7-18); eGFR NON AFRICAN AMERICAN 89 mL/min (90-120)
[2018-04-24 08:48] VITALS: BP 122/63
[2018-04-24 16:10] VITALS: BP 112/55
[2018-04-24 20:45] VITALS: BP 122/75
[2018-04-25] VITALS: BP 98/59
[2018-04-25 05:55] LABS: BASOPHILS 0.2 % (0-2); EOSINOPHILS 4.5 % (0-7); HEMATOCRIT 27.7 % (42.0-54.0); HEMOGLOBIN 9.2 g/dL (13.5-17.5); IMMATURE GRANULOCYTES 0.2 % (0-5); LYMPHOCYTES 25.8 % (15-50); MCH 29.3 pg (26.0-34.0); MCHC 33.2 g/dL (31.0-37.0); MCV 88.2 fL (80.0-100.0); MEAN PLATELET VOLUME 8.6 fL (7.4-10.4); MONOCYTES 10.7 % (2-11); NEUTROPHILS 58.6 % (40-80); PLATELET COUNT 140 10x3/uL (130-400); RBC 3.14 10x6/uL (4.20-6.10); RDW 14.8 % (11.5-14.5); WBC 5.4 10x3/uL (4.8-10.8)
[2018-04-25 06:30] LABS: CALC OSMOLALITY 270 mosm/kg (275-300); CARBON DIOXIDE 27.9 mmol/L (21.0-32.0); CHLORIDE - SERUM 101 mmol/L (98-107); CREATININE - SERUM 0.8 mg/dL (0.6-1.3); GLUCOSE 106 mg/dL (74-106); POTASSIUM - SERUM 3.9 mmol/L (3.5-5.1); SODIUM 136 mmol/L (136-145); eGFR NON AFRICAN AMERICAN > 90 mL/min (90-120)
[2018-04-25 06:32] LABS: UREA NITROGEN 11 mg/dL (7-18)
[2018-04-25 08:49] VITALS: BP 131/74
[2018-04-25 16:34] VITALS: BP 120/67
[2018-04-25 19:00] VITALS: BP 99/55
[2018-04-26 04:00] VITALS: BP 110/60
[2018-04-26 05:18] LABS: BASOPHILS 0.2 % (0-2); EOSINOPHILS 2.7 % (0-7); HEMATOCRIT 28.5 % (42.0-54.0); HEMOGLOBIN 9.5 g/dL (13.5-17.5); IMMATURE GRANULOCYTES 0.2 % (0-5); MCH 29.6 pg (26.0-34.0); MCHC 33.3 g/dL (31.0-37.0); MCV 88.8 fL (80.0-100.0); MEAN PLATELET VOLUME 8.2 fL (7.4-10.4); MONOCYTES 11.5 % (2-11); NEUTROPHILS 55.4 % (40-80); PLATELET COUNT 151 10x3/uL (130-400); RBC 3.21 10x6/uL (4.20-6.10); RDW 14.7 % (11.5-14.5); WBC 5.1 10x3/uL (4.8-10.8)
[2018-04-26 05:48] LABS: ALBUMIN 2.2 g/dL (3.4-5.0); ALKALINE PHOSPHATASE 30 U/L (46-116); ALT (SGPT) 19 U/L (10-68); BILIRUBIN - TOTAL 1.31 mg/dL (0.2-1.3); CALC OSMOLALITY 277 mosm/kg (275-300); CALCIUM 8.3 mg/dL (8.5-10.1); CARBON DIOXIDE 31.9 mmol/L (21.0-32.0); CHLORIDE - SERUM 102 mmol/L (98-107); CREATININE - SERUM 0.9 mg/dL (0.6-1.3); GLUCOSE 102 mg/dL (74-106); POTASSIUM - SERUM 4.3 mmol/L (3.5-5.1); PROTEIN - SERUM 5.6 g/dL (6.4-8.2); SODIUM 140 mmol/L (136-145); UREA NITROGEN 11 mg/dL (7-18); eGFR NON AFRICAN AMERICAN 89 mL/min (90-120)
[2018-04-26 08:40] VITALS: BP 90/43
[2018-04-26 12:46] VITALS: BP 109/42
[2018-04-26 16:21] VITALS: BP 110/54
[2018-04-26 20:17] VITALS: BP 116/56
[2018-04-27 04:31] LABS: BASOPHILS 0.2 % (0-2); EOSINOPHILS 4.2 % (0-7); HEMATOCRIT 28.3 % (42.0-54.0); HEMOGLOBIN 9.4 g/dL (13.5-17.5); IMMATURE GRANULOCYTES 0.4 % (0-5); LYMPHOCYTES 26.2 % (15-50); MCH 29.6 pg (26.0-34.0); MCHC 33.2 g/dL (31.0-37.0); MEAN PLATELET VOLUME 8.5 fL (7.4-10.4); MONOCYTES 10.7 % (2-11); NEUTROPHILS 58.3 % (40-80); PLATELET COUNT 166 10x3/uL (130-400); RBC 3.18 10x6/uL (4.20-6.10); RDW 14.4 % (11.5-14.5)
[2018-04-27 04:50] LABS: ALBUMIN 2.1 g/dL (3.4-5.0); ALKALINE PHOSPHATASE 37 U/L (46-116); ALT (SGPT) 23 U/L (10-68); BILIRUBIN - TOTAL 1.32 mg/dL (0.2-1.3); CALC OSMOLALITY 273 mosm/kg (275-300); CALCIUM 8.1 mg/dL (8.5-10.1); CARBON DIOXIDE 30.3 mmol/L (21.0-32.0); CHLORIDE - SERUM 99 mmol/L (98-107); CREATININE - SERUM 0.9 mg/dL (0.6-1.3); GLUCOSE 117 mg/dL (74-106); POTASSIUM - SERUM 4.1 mmol/L (3.5-5.1); PROTEIN - SERUM 5.6 g/dL (6.4-8.2); SODIUM 136 mmol/L (136-145); eGFR NON AFRICAN AMERICAN 89 mL/min (90-120)
[2018-04-27 04:52] LABS: UREA NITROGEN 15 mg/dL (7-18)
[2018-04-27 05:36] VITALS: BP 124/60
[2018-04-27 08:45] VITALS: BP 96/54
[2018-04-27] MEDS ORDERED: ELIQUIS2.5 MG PO (08:50)
[2018-04-27] MEDS ORDERED: DILAUDID8 MG PO (08:51)
[2018-04-27] MEDS ORDERED: PROSCAR5 MG PO (09:50)
[2018-04-27] MEDS ORDERED: LEVAQUIN750 MG PO (09:50)
[2018-04-27] MEDS ORDERED: FLORAJEN3 CAPS460 MG PO (09:50)
[2018-04-27] MEDS ORDERED: FLOMAX0.4 MG PO (09:50)
[2018-04-27 12:59] VITALS: BP 113/64
--- NOTE | 2018-04-27 13:47 | MORECARE ---
CASE MANAGEMENT DISCHARGE SUMMARY PATIENT: NOMI ANGELA UNIT: [id number] ADM DATE: 04/20/18 AGE: 72 : [birth year] SEX: M ROOM/BED: D.2213 AUTHOR: TERRI,DOC PHYSICIAN: REFERRING PHYSICIAN: JOSEFINA RUBIO MD DATE OF SERVICE: 04/27/18 Discharge Plan Patient Name: NOMI ANGELA Facility: [facility]:[place] : 1945 Planned Disposition: Alf Facility Anticipated Discharge Date: 04/25/18 Discharge Date: 04/27/2018 Expected LOS: 5 Initial Reviewer: [id number] Initial Review Date: 04/21/2018 Generated: 04/27/18 2:47 pm Comments DCP- Discharge Planning Updated by [email or web address]: Katie Hatch on 04/27/18 12:[address] Patient discharging to [facility]. 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 He is going to inpatient rehab DCP- Discharge Planning Updated by [email or web address]: Gladis Aranda on 04/22/18 1:[address] Patient Name: NOMI ANGELA Admission Status: ER Accout number: [id number] Admission Date: 04-20-2018 : 1945 Admission Diagnosis: Attending: JOSEFINA RUBIO Current LOS: 2 Anticipated DC Date: 04-25-2018 Planned Disposition: Alf Facility Primary Insurance: [employer] [facility] Discharge Planning Comments: PATIENT SIGNED JOSEPH FOR TO GO TO [facility] SNF. SNF CALLED AND DOCUMENTS FAXED. MAINTENANCE JOB TITLES STATES POSSIBLE DC OF WEDNESDAY FROM THE HOSPITAL. WAITING FOR APPROVAL FROM SNF NOW. Sprinkler Inspector: Gladis Aranda Appended by Gladis Aranda on 04/22/2018 14:17 WOOD ROUTER: PATIENT FAMILY WANTS [facility] FOR INPATIENT REHAB. CM SPOKE WITH AVELINO AT REHAB AND DOCUMENTS FAXED TO HER, SHE STATES SHE WILL COME OUT AND SEE PATIENT. PATIENT MAY POSSIBLY BE DISCHARGED WEDNESDAY IF MEDICALLY STABLE. DCP- Discharge Planning Updated by [id number]: Gladis Aranda on 04/21/18 2:[address] Patient Name: NOMI ANGELA Admission Status: ER Accout number: [id number] Admission Date: 04-20-2018 : 1945 Admission Diagnosis: Attending: JOSEFINA RUBIO Current LOS: 1 Anticipated DC Date: Planned Disposition: Primary Insurance: [employer] [facility] Discharge Planning Comments: CM MET WITH PATIENT'S DAUGHTER OPAL ABOUT DC PLANNING/NEEDS. PATIENT HAS HAD PAIN MEDICINE AND WAS SLEEPING. JOSEPH FOR HH LEFT WITH DAUGHTER TO GIVE TO IF HE NEEDS HH AT DC. DAUGHTER STATES HAS CPAP AT HOME BUT NO OTHER EQUIPMENT. MAY NEED WALKER AT TIME OF DC. CM WILL FOLLOW AND ASSIST NEEDED WITH DC PLANNING/NEEDS. Sprinkler Inspector: Gladis Aranda DCPIA - Discharge Planning Initial Assessment Updated by [email or web address]: Gladis Aranda on 04/21/18 3:18 pm * Is the patient Alert and Oriented? No * PCP TIFFANI * Pharmacy [facility] [address] * Preadmission Environment Home with Family * ADLs Independent * Equipment CPAP * List name and contact numbers for known caregivers / representatives who currently or will assist patient after discharge: ASTRID, , OPAL, DAUGHTER, * Community resources currently utilized None * Additional services required to return to the preadmission environment? Yes Coverage Notice Reviewer: [id number] - Gladis Aranda Notice Issued Date-Time: 04/22/2018 9:37 Notice Type: Patient Choice Letter Notice Delivered To: Family Member Relationship to Patient: Spouse Apiarist Name: Delivery Method: HAND - Hand Delivered Merry Days: Prior Verbal Notification: Recipient Understood Notice: Yes Recipient Signature: Yes Med Rec Note Co-signed by Attending: Coverage Notice Comment: [facility] Last DP export: 04/22/18 1:24 pm Patient Name: NOMI ANGEAL Page [phone] at 1347 All edits/amendments must be made on the electronic document DICTATION DATE: 04/27/18 1347 INDUSTRIAL MECHANIC: CHANDRIKA 04/27/18 1347 RPT#: [id number] DC DATE:04/27/18 STATUS: DIS IN [facility] [address] [facility] [address] END OF REPORT
== END 2018-04-27 13:28 | DRG 469 ==
LOC: D.ER 02:50 → D.MS 03:29
PROVIDERS: Emergency Medicine; Orthopaedic Surgery; ADMIT Internal Medicine Nephrology
PROC: 0SR90JZ Replacement of Right Hip Joint with Synthetic Substitute, Open Approach (ICD-10-PCS; principal; 2018-04-20 10:00)
DX: S72.001A Fracture of unspecified part of neck of right femur, initial encounter for closed fracture (principal); J69.0 Pneumonitis due to inhalation of food and vomit; W19.XXXA Unspecified fall, initial encounter; I48.91 Unspecified atrial fibrillation; I25.10 Atherosclerotic heart disease of native coronary artery without angina pectoris; I10 Essential (primary) hypertension; G47.33 Obstructive sleep apnea (adult) (pediatric); F03.90 Unspecified dementia, unspecified severity, without behavioral disturbance, psychotic disturbance, mood disturbance, and anxiety; G62.9 Polyneuropathy, unspecified; N40.1 Benign prostatic hyperplasia with lower urinary tract symptoms; R33.8 Other retention of urine

== ENCOUNTER → 2018-06-03 16:02 | Outpatient (CLI) | payer BC, MEDICARE ==
[2018-04-21 18:27] VITALS: BMI 24.8
[~2018-06-03 16:02] MED LIST changes: +FLORAJEN3 CAPS460 MG PO; +LEVAQUIN750 MG PO; +NEURONTIN800 MG PO; +PROSCAR5 MG PO
== END | disposition home or self-care (01) ==
LOC: D.CT 06-02 17:30
DX: S09.90XA Unspecified injury of head, initial encounter (principal); W19.XXXA Unspecified fall, initial encounter

== ENCOUNTER → 2018-07-18 15:59 | Outpatient (CLI) | payer BC, MEDICARE ==
[2018-04-21 18:27] VITALS: BMI 24.8
== END | disposition home or self-care (01) ==
LOC: D.RAD 15:30
PROVIDERS: ATTEND Internal Medicine Pulmonary Disease
DX: J45.909 Unspecified asthma, uncomplicated (principal)

== ENCOUNTER → 2018-12-22 12:51 | Outpatient (CLI) | payer BC, MEDICARE ==
[2018-04-21 18:27] VITALS: BMI 24.8
== END | disposition home or self-care (01) ==
LOC: D.RAD 12-13 09:00 → D.CT 12-13 10:00 → D.RAD 12-16 13:30
PROVIDERS: ATTEND Orthopaedic Surgery
DX: M75.41 Impingement syndrome of right shoulder (principal)

== ENCOUNTER → 2018-12-27 15:21 | Outpatient (CLI) | payer BC, MEDICARE ==
[2018-04-21 18:27] VITALS: BMI 24.8
== END | disposition home or self-care (01) ==
LOC: D.RAD 07-18 15:30 → D.RT 07-26 11:00 → D.RAD 07-26 11:45 → D.RT 07-28 13:00
PROVIDERS: ATTEND Internal Medicine Pulmonary Disease
DX: J45.909 Unspecified asthma, uncomplicated (principal)

== ENCOUNTER 2019-04-03 11:25 | Day surgery (SDC) | payer BC, MEDICARE ==
[~2019-04-03] VITALS: Ht 198.1 cm; Wt 81.8 kg
[2019-04-03 12:05] LABS: HEMATOCRIT 40.9 % (42.0-54.0); HEMOGLOBIN 13.6 g/dL (13.5-17.5); MCH 31.9 pg (26.0-34.0); MCHC 33.3 g/dL (31.0-37.0); MCV 95.8 fL (80.0-100.0); RBC 4.27 10x6/uL (4.20-6.10); RDW 13.6 % (11.5-14.5); WBC 9.3 10x3/uL (4.8-10.8)
[2019-04-03] MEDS ORDERED: CYMBALTA60 MG PO (14:24)
[2019-04-03 14:27] VITALS: BP 134/70; Ht 198.1 cm; Wt 81.8 kg
--- NOTE | 2019-04-03 15:39 | NUR ---
15[address] DR[address] YANNA ZIMMERMAN [place] DIET SERVED
--- NOTE | 2019-04-04 11:06 | OP ---
PATIENT NAME: NOMI ANGELA MEDICAL RECORD: [id number] :49 LOCATION:D[facility] ADMISSION DATE: SURGEON: HEATH RAINES DO DATE OF OPERATION: 04/03/2019 PROCEDURE: Colonoscopy with polypectomy. INDICATIONS FOR PROCEDURE: Screening colonoscopy with a history of colon polyps as well as abnormal weight loss. SCOPE: Olympus video pediatric colonoscope. MEDICATIONS: Propofol 160 mg IV per anesthesia. WITHDRAWAL TIME: 20 minutes. ESTIMATED BLOOD LOSS: Minimal. COMPLICATIONS: None. FINDINGS: Informed consent was given. The patient was made comfortable with the above medication. After reaching an adequate level of sedation by slow IV push, the patient was placed on his left side. A digital rectal examination was performed and was normal. The endoscope was advanced under direct visualization through the rectum to the cecum, confirmed by the presence of the appendiceal orifice and ileocecal valve. The endoscope was slowly withdrawn and mucosa was carefully examined. The prep quality was fair. There were 2 benign-appearing sessile polyps visualized today. One was located in the ascending colon and the second was located in the transverse colon. They both ranged in size from 3-5 mm in diameter. They were both removed using hot forceps. There was evidence of mild diverticulosis involving the descending and sigmoid colon. Retroflexion was performed in the rectum with visualization of grade I internal hemorrhoids without bleeding. The endoscope was withdrawn from the patient. The patient tolerated the procedure well and there were no complications. IMPRESSION: 1. Two benign-appearing sessile polyps as described above, removed using hot forceps. 2. Mild diverticulosis of the descending and sigmoid colon. 3. Grade I internal hemorrhoids without bleeding. PLAN AND RECOMMENDATIONS: 1. Discharge home when recovery parameters are met. 2. Follow up biopsy specimen results. 3. High fiber diet. 4. Continue current medications. 5. Recall colonoscopy in 5 years. TRANSINT:[id number] Voice Confirmation ID: [id number] DOCUMENT ID: [id number] OPERATIVE REPORT [id number] NOMI ANGELA HEATH RAINES DO at 1106 CC: [id number] DICTATION DATE: 04/03/19 1519 LIVE AMMUNITION INSPECTOR: 04/04/19 0010 [facility] 04/03/19 [place] [address]
== END 2019-04-03 16:10 | disposition home or self-care (01) ==
LOC: D.OPS 11:25
PROVIDERS: Anesthesiology; ATTEND Internal Medicine Gastroenterology
DX: Z12.11 Encounter for screening for malignant neoplasm of colon (principal); Z86.010 Personal history of colon polyps; R63.4 Abnormal weight loss; R13.10 Dysphagia, unspecified

== ENCOUNTER → 2019-04-17 11:10 | Outpatient (CLI) | payer BC, MEDICARE ==
[2019-04-03 14:27] VITALS: BMI 20.8
== END | disposition home or self-care (01) ==
LOC: D.HCCECHO 11:10
PROVIDERS: ATTEND Internal Medicine Cardiovascular Disease
DX: I25.10 Atherosclerotic heart disease of native coronary artery without angina pectoris (principal)

== ENCOUNTER 2019-04-24 09:55 | Day surgery (SDC) | payer BC, MEDICARE ==
[~2019-04-24] VITALS: Ht 198.1 cm; Wt 84.1 kg
[2019-04-24 10:25] LABS: HEMATOCRIT 35.5 % (42.0-54.0); HEMOGLOBIN 11.8 g/dL (13.5-17.5); MCH 31.9 pg (26.0-34.0); MCHC 33.2 g/dL (31.0-37.0); MCV 95.9 fL (80.0-100.0); MEAN PLATELET VOLUME 7.7 fL (7.4-10.4); RBC 3.7 10x6/uL (4.20-6.10); RDW 13.4 % (11.5-14.5); WBC 7.1 10x3/uL (4.8-10.8)
[2019-04-24 10:32] LABS: CALC OSMOLALITY 280 mosm/kg (275-300); CALCIUM 8.9 mg/dL (8.5-10.1); CARBON DIOXIDE 33.7 mmol/L (21.0-32.0); CHLORIDE - SERUM 102 mmol/L (98-107); CREATININE - SERUM 0.8 mg/dL (0.6-1.3); GLUCOSE 101 mg/dL (74-106); POTASSIUM - SERUM 4.3 mmol/L (3.5-5.1); SODIUM 139 mmol/L (136-145); UREA NITROGEN 20 mg/dL (7-18); eGFR NON AFRICAN AMERICAN > 90 mL/min (90-120)
[2019-04-24 11:00] VITALS: BP 142/88; Ht 198.1 cm; Wt 84.1 kg
--- NOTE | 2019-04-24 14:29 | NUR ---
1337 IV DC'D. CATHETER TIP INTACT. NO BLEEDING AT SITE. BANDAID APPLIED. 1355 DISCHARGE INSTRUCTIONS GIVEN. PT IS CLEAR ON FOLLOW UP APPOINTMENT WITH DR RAINES. HE IS AWARE THAT HE HAS A GES ON 04/27/2019 & VOICES UNDERSTANDING OF THESE APPOINTMENTS DOES HIS SON IN LAW.
--- NOTE | 2019-04-25 07:49 | OP ---
PATIENT NAME: NOMI ANGELA MEDICAL RECORD: [id number] :49 LOCATION:[facility] ADMISSION DATE: SURGEON: HEATH RAINES DO DATE OF OPERATION: 04/24/2019 PROCEDURE: EGD with balloon dilation and biopsies. INDICATIONS FOR PROCEDURE: Dysphagia and abnormal weight loss. SCOPE: Olympus video gastroscope. MEDICATIONS: Propofol 100 mg IV per anesthesia. ESTIMATED BLOOD LOSS: Minimal. COMPLICATIONS: None. FINDINGS: Informed consent was given. The patient was made comfortable with the above medication. After reaching an adequate level of sedation by slow IV push, the patient was placed on his left side. The endoscope was advanced under direct visualization through the mouth to the second portion of the duodenum. The upper and middle esophagus appeared normal. In the distal esophagus and down to the GE junction, there was evidence of reflux esophagitis. There was an esophageal stricture located at the GE junction. It was dilated to 16 mm maximum diameter successfully. The endoscope was advanced beyond the GE junction into the stomach where a significant amount of food retention was immediately visualized. The fundus and cardia of the stomach were difficult to evaluate due to the retained food, but throughout the stomach, there was a moderate to severe amount of erythema, granularity, and friability consistent with gastritis. Cold forceps, biopsies were taken from the antrum and incisura to submit for histopathology and to rule out the presence of H. pylori. The endoscope was advanced beyond the pylorus into the duodenum, which appeared normal to the second portion. The endoscope was then withdrawn from the patient. The patient tolerated the procedure well and there were no complications. IMPRESSION: 1. LA class A reflux-induced esophagitis. 2. Esophageal stricture, status post dilation to 16 mm. 3. Gastritis. 4. Food retention with possible gastroparesis. PLAN AND RECOMMENDATIONS: 1. Discharge home when recovery parameters are met. 2. Follow up biopsy specimen results. 3. GERD diet and reflux precautions. 4. We will recommend a gastric emptying scan to rule out gastroparesis based on endoscopic findings and symptoms of decreased appetite with weight loss. 5. Omeprazole 40 mg daily times 60 days. 6. Follow up in GI clinic in 4-6 weeks to discuss symptoms and whether or not there needs to be further evaluation of dysphagia if this continues. May need to consider modified barium swallow versus a barium esophagram and/or esophageal manometry based on symptoms at time of followup. 7. The patient may require prolonged antacid therapy. If this is the case, consider Pepcid daily after 60 days of proton pump inhibitor therapy. OPERATIVE REPORT [id number] NOMI ANGELA TRANSINT:[id number] Voice Confirmation ID: [id number] DOCUMENT ID: [id number] HAETH RAINES DO at 0749 CC: [id number] DICTATION DATE: 04/24/19 1248 GROCERY CASHIER: 04/24/19 1701 [facility] 04/24/19 [address] [place] [address]
== END 2019-04-24 14:04 | disposition home or self-care (01) ==
LOC: D.OPS 09:55
PROVIDERS: Anesthesiology; ATTEND Internal Medicine Gastroenterology
DX: R13.10 Dysphagia, unspecified (principal); R63.4 Abnormal weight loss; Z86.010 Personal history of colon polyps; Z12.11 Encounter for screening for malignant neoplasm of colon

== ENCOUNTER → 2019-04-28 12:11 | Outpatient (CLI) | payer BC, MEDICARE ==
[2019-04-24 11:00] VITALS: BMI 21.4
== END | disposition home or self-care (01) ==
LOC: D.NM 04-27 11:30
PROVIDERS: ATTEND Internal Medicine Gastroenterology
DX: R63.4 Abnormal weight loss (principal); R63.0 Anorexia; K31.89 Other diseases of stomach and duodenum

== ENCOUNTER 2019-07-21 10:42 | Inpatient (IN) | payer BC, MEDICARE ==
[~2019-07-21] VITALS: Ht 198.1 cm; Wt 81.8 kg
[2019-07-21] VITALS (7 sets, daily range): BP systolic 104–164; BP diastolic 60–82
[2019-07-21 11:14] LABS: BASOPHILS 0.1 % (0-2); EOSINOPHILS 1.2 % (0-7); HEMATOCRIT 38.4 % (42.0-54.0); HEMOGLOBIN 12.4 g/dL (13.5-17.5); IMMATURE GRANULOCYTES 0.4 % (0-5); LYMPHOCYTES 8.8 % (15-50); MCH 31.5 pg (26.0-34.0); MCHC 32.3 g/dL (31.0-37.0); MCV 97.5 fL (80.0-100.0); MEAN PLATELET VOLUME 8.5 fL (7.4-10.4); MONOCYTES 8.3 % (2-11); NEUTROPHILS 81.2 % (40-80); PLATELET COUNT 177 10x3/uL (130-400); RBC 3.94 10x6/uL (4.20-6.10); RDW 14.2 % (11.5-14.5); WBC 15.7 10x3/uL (4.8-10.8)
--- NOTE | 2019-07-21 11:14 | NUR ---
NASAL SWAB X 2 AND THRIAT SWAB COLLECTED, LABELED AT BS AND SENT TO LAB
--- NOTE | 2019-07-21 11:15 | NUR ---
PT AND S/O REFUSING CT OF HEAD. "HE WAS ONLY CONFUSED B/C HIS FEVER WAS SO HIGH. ONCE HIS FEVER CAME DOWN HE IS NORMAL" JOSE CARLOS MC NOTIFIED
[2019-07-21 11:25] LABS: CALC OSMOLALITY 278 mosm/kg (275-300); CARBON DIOXIDE 32.5 mmol/L (21.0-32.0); CHLORIDE - SERUM 100 mmol/L (98-107); GLUCOSE 112 mg/dL (74-106); POTASSIUM - SERUM 4.1 mmol/L (3.5-5.1); SODIUM 137 mmol/L (136-145); UREA NITROGEN 24 mg/dL (7-18); eGFR NON AFRICAN AMERICAN 78 mL/min (90-120)
[2019-07-21 11:26] LABS: APTT 31.6 SECONDS (22.8-39.4); INR 1.06 (0.85-1.17); PROTIME 13.7 SECONDS (11.6-15.0)
--- NOTE | 2019-07-21 11:30 | NUR ---
URINE SPEC COLLECTED, LABELED AT BS AND SENT TO LAB
[2019-07-21 11:32] LABS: BILIRUBIN NEGATIVE (NEGATIVE); GLUCOSE NEGATIVE (NEGATIVE); KETONE NEGATIVE (NEGATIVE); NITRITE NEGATIVE (NEGATIVE); SPECIFIC GRAVITY 1.015 (1.005-1.020); UROBILINOGEN NORMAL (NORMAL)
[2019-07-21 11:42] LABS: ALBUMIN 3.5 g/dL (3.4-5.0); ALKALINE PHOSPHATASE 46 U/L (30-120); ALT (SGPT) 18 U/L (10-68); BILIRUBIN - TOTAL 0.66 mg/dL (0.2-1.3); CKMB 0.6 U/L (0.0-3.6); CREATINE KINASE 113 UL (21-232); PROTEIN - SERUM 7.8 g/dL (6.4-8.2)
[2019-07-21 11:43] LABS: TROPONIN-I 0.017 ng/mL (0.000-0.060)
[2019-07-21 12:24] LABS: C-REACTIVE PROTEIN 0.3 mg/dL (0.0-0.9)
[2019-07-21] MEDS ORDERED: MORPHINE PUMP (12:59)
--- NOTE | 2019-07-21 13:49 | NUR ---
DR SIERRA AT BS
--- NOTE | 2019-07-21 16:35 | NUR ---
AHA MEAL TRAY SERVED
--- NOTE | 2019-07-21 17:23 | NUR ---
REPORT TO STEFANI JONES
--- NOTE | 2019-07-21 17:49 | NUR ---
PT ARRIVED TO FLOOR VIA WHEELCHAIR A/O X4. NO S/S OF DISTRESS. WILL CONTINUE TO MONITOR.
[2019-07-21] MEDS ORDERED: TRAZODONE HCL150 MG PO (18:04)
[2019-07-22] VITALS: BP 108/61
[2019-07-22 02:14] VITALS: BP 121/68; Ht 198.1 cm; Wt 81.8 kg
[2019-07-22 06:59] LABS: BASOPHILS 0.1 % (0-2); EOSINOPHILS 2.7 % (0-7); HEMATOCRIT 32.5 % (42.0-54.0); HEMOGLOBIN 10.4 g/dL (13.5-17.5); IMMATURE GRANULOCYTES 0.1 % (0-5); LYMPHOCYTES 21.4 % (15-50); MCV 96.7 fL (80.0-100.0); MEAN PLATELET VOLUME 7.8 fL (7.4-10.4); MONOCYTES 8.5 % (2-11); NEUTROPHILS 67.2 % (40-80); RBC 3.36 10x6/uL (4.20-6.10); RDW 14.3 % (11.5-14.5)
--- NOTE | 2019-07-22 07:00 | NUR ---
RECEIVED REPORT. ASSUMED CARE OF PATIENT. CALL LIGHT TIMOTHYOZZIE GTZ. PATIENT RESTING IN BED WITH EYES CLOSED. RESP EVEN AND UNLABORED. NO DISTRESS.
[2019-07-22 07:08] LABS: PLATELET COUNT 115 10x3/uL (130-400); WBC 7.1 10x3/uL (4.8-10.8)
[2019-07-22 07:13] LABS: ALBUMIN 2.9 g/dL (3.4-5.0); ALKALINE PHOSPHATASE 39 U/L (30-120); CALC OSMOLALITY 268 mosm/kg (275-300); CALCIUM 8.2 mg/dL (8.5-10.1); CARBON DIOXIDE 31.4 mmol/L (21.0-32.0); CHLORIDE - SERUM 102 mmol/L (98-107); GLUCOSE 110 mg/dL (74-106); MAGNESIUM - SERUM 1.9 mg/dL (1.8-2.4); PHOSPHOROUS 3.5 mg/dL (2.5-4.9); POTASSIUM - SERUM 3.5 mmol/L (3.5-5.1); PROTEIN - SERUM 6.5 g/dL (6.4-8.2); SODIUM 133 mmol/L (136-145); UREA NITROGEN 18 mg/dL (7-18); eGFR NON AFRICAN AMERICAN 78 mL/min (90-120)
[2019-07-22 07:14] LABS: ALT (SGPT) 13 U/L (10-68)
[2019-07-22 07:30] VITALS: BP 118/64
--- NOTE | 2019-07-22 10:01 | NUR ---
SITTING UP TO CHAIR AT BEDSIDE. NO DISTRESS. CALL LIGHT WITHIN REACH.
--- NOTE | 2019-07-22 10:36 | NUR ---
PATIENT MOVED TO ROOM 2137 FROM 2126 DUE TO LEAKING TOILET, BROKEN THERMOSTAT, AND THE BED IS LONG ENOUGH TO ACCOMODATE PATIENT HE IS 6'5. ALL PERSONAL BELONGINGS MOVED TO PATIENT NEW ROOM.
[2019-07-22 15:30] VITALS: BP 110/53
--- NOTE | 2019-07-22 17:47 | NUR ---
PATIENT SITTING TO SIDE OF BED CONSUMING PM MEAL AND CONVERSING WITH HIS SPOUSE ON SPEAKER PHONE. PATIENT RESP EVEN AND UNLABORED AND EXCITED TO SHARE WITH HIS FAMILY THAT HE IS GOING HOME TOMORROW. NO DISTRESS. DENIES NEEDS. CALL LIGHT WITHIN REACH.
--- NOTE | 2019-07-22 19:00 | NUR ---
REPORT RECEIVED. BEDSIDE SHIFT REPORT COMPLETE. PT UP IN ROOM, RR EVEN AND UNLABORED. NO S/SX OF DISTRESS OBSERVED AT THIS TIME. NO VOICED C/O OR CONCERNS NOTED. CALL LIGHT IN REACH. WILL CTM.
[2019-07-22 20:00] VITALS: BP 155/83
[2019-07-23 01:13] VITALS: BP 105/47
[2019-07-23 06:00] LABS: BASOPHILS 0.1 % (0-2); EOSINOPHILS 2.4 % (0-7); HEMOGLOBIN 11.2 g/dL (13.5-17.5); IMMATURE GRANULOCYTES 0.3 % (0-5); LYMPHOCYTES 17.1 % (15-50); MCH 31.1 pg (26.0-34.0); MCV 97.2 fL (80.0-100.0); MEAN PLATELET VOLUME 8.2 fL (7.4-10.4); NEUTROPHILS 73.1 % (40-80); RDW 14.2 % (11.5-14.5); WBC 7.6 10x3/uL (4.8-10.8)
[2019-07-23 06:10] LABS: PLATELET COUNT 172 10x3/uL (130-400)
[2019-07-23 06:17] LABS: ALBUMIN 3.1 g/dL (3.4-5.0); ALKALINE PHOSPHATASE 37 U/L (30-120); BILIRUBIN - TOTAL 0.63 mg/dL (0.2-1.3); CALC OSMOLALITY 281 mosm/kg (275-300); CALCIUM 8.5 mg/dL (8.5-10.1); CARBON DIOXIDE 30.3 mmol/L (21.0-32.0); CHLORIDE - SERUM 105 mmol/L (98-107); CREATININE - SERUM 0.8 mg/dL (0.6-1.3); GLUCOSE 96 mg/dL (74-106); PHOSPHOROUS 3.7 mg/dL (2.5-4.9); POTASSIUM - SERUM 3.5 mmol/L (3.5-5.1); PROTEIN - SERUM 7.1 g/dL (6.4-8.2); SODIUM 141 mmol/L (136-145); UREA NITROGEN 14 mg/dL (7-18); eGFR NON AFRICAN AMERICAN > 90 mL/min (90-120)
[2019-07-23 06:18] LABS: ALT (SGPT) 17 U/L (10-68)
--- NOTE | 2019-07-23 08:34 | NUR ---
PT SITTING UP IN CHAIR, EATING BREAKFAST. RR EVEN AND UNLABORED ON RA. DENIES NEEDS OR PAIN AT THIS TIME. CALL LIGHT WITHIN REACH. WILL CONTINUE TO MONITOR.
[2019-07-23 09:17] VITALS: BP 116/66
[2019-07-23] MEDS ORDERED: AUGMENTIN 875-11 TAB PO (10:40)
--- NOTE | 2019-07-23 11:04 | MORECARE ---
CASE MANAGEMENT DISCHARGE SUMMARY PATIENT: NOMI ANGELA UNIT: [id number] ADM DATE: 07/21/19 AGE: 74 : 47 SEX: M ROOM/BED: D.6442 AUTHOR: TERRI,DOC PHYSICIAN: REFERRING PHYSICIAN: CHAYITO MERRILL MD DATE OF SERVICE: 07/23/19 Discharge Plan Patient Name: NOMI ANGELA Facility: [facility]:[place] : 1945 Planned Disposition: Home Anticipated Discharge Date: Discharge Date: Expected LOS: Initial Reviewer: [email or web address] Initial Review Date: 07/21/2019 Generated: 07/23/19 12:04 pm Comments DCP- Discharge Planning Updated by [email or web address]: Alice Higginbotham on 07/23/19 9:[address] Patient Name: NOMI ANGELA Admission Status: ER Accout number: [id number] Admission Date: 07-21-2019 : 1945 Admission Diagnosis: Attending: MEMO Current LOS: 2 Anticipated DC Date: Planned Disposition: Primary Insurance: BCTNLIFE Discharge Planning Comments: CM met with patient at bedside after explaining CM role and obtaining verbal consent. Patient lives at home with his Alix where he is independent with his care and plans to return there upon discharge. Patient feels this would be a safe discharge. CM discussed availability / needs of home health and medical equipment. Patient denies any discharge needs at this time. Patient states he will have his family drive him home upon discharge. CM will continue to follow and assist as needed with discharge planning / needs. Ict Systems Test Engineer: Alice Higginbotham DCPIA - Discharge Planning Initial Assessment Updated by [email or web address]: Alice Higginbotham on 07/23/19 11:02 am * Is the patient Alert and Oriented? Yes * How many steps to enter\exit or inside your home? * PCP NIXON * Pharmacy [facility] * Preadmission Environment Home with Family * ADLs Independent * Equipment None * List name and contact numbers for known caregivers / representatives who currently or will assist patient after discharge: ALIX ANGELA - SPOUSE - [phone] * Verbal permission to speak to the caregivers and representatives has been obtained from the patient. Yes * Community resources currently utilized None * Additional services required to return to the preadmission environment? No * Can the patient safely return to the preadmission environment? Yes * Has this patient been hospitalized within the prior 30 days at any hospital? No Patient Name: NOMI ANGELA Page [phone] at 1104 All edits/amendments must be made on the electronic document DICTATION DATE: 07/23/191103 TEXTILE COATING MACHINE OPERATOR: CHANDRIKA 07/23/191103 RPT#: [id number] DC DATE: STATUS: ADM IN [facility] [address] [place] [address] END OF REPORT
--- NOTE | 2019-07-23 13:10 | NUR ---
D/C INSTRUCTIONS REVIEWED WITH PT. VERBALIZED AGREEMENT AND DENIES FURTHER QUESTIONS. IV D/C WITH CATHETER TIP INTACT. PT LEFT VIA WHEELCHAIR WITH ALL BELONGINGS.
--- NOTE | 2019-07-24 08:49 | MORECARE ---
CASE MANAGEMENT DISCHARGE SUMMARY PATIENT: NOMI ANGELA UNIT: [id number] ADM DATE: 07/21/19 AGE: 74 : 47 SEX: M ROOM/BED: D.2136 AUTHOR: TERRI,DOC PHYSICIAN: REFERRING PHYSICIAN: CHAYITO MERRILL MD DATE OF SERVICE: 07/24/19 Discharge Plan Patient Name: NOMI ANGELA Facility: [facility]:[place] : 1945 Planned Disposition: Home Anticipated Discharge Date: 07/23/19 Discharge Date: 07/23/2019 Expected LOS: 2 Initial Reviewer: [email or web address] Initial Review Date: 07/21/2019 Generated: 07/24/19 9:48 am Comments DCP- Discharge Planning Updated by [email or web address]: Alice Higginbotham on 07/23/19 9:[address] Patient Name: NOMI ANGELA Admission Status: ER Accout number: [id number] Admission Date: 07-21-2019 : 1945 Admission Diagnosis: Attending: MEMO Current LOS: 2 Anticipated DC Date: Planned Disposition: Primary Insurance: BCTNLIFE Discharge Planning Comments: CM met with patient at bedside after explaining CM role and obtaining verbal consent. Patient lives at home with his Alix where he is independent with his care and plans to return there upon discharge. Patient feels this would be a safe discharge. CM discussed availability / needs of home health and medical equipment. Patient denies any discharge needs at this time. Patient states he will have his family drive him home upon discharge. CM will continue to follow and assist as needed with discharge planning / needs. Power Machine Operator: Alice Higginbotham DCPIA - Discharge Planning Initial Assessment Updated by [email or web address]: Alice Higginbotham on 07/23/19 11:02 am * Is the patient Alert and Oriented? Yes * How many steps to enter\exit or inside your home? * PCP NIXON * [facility] * Preadmission Environment Home with Family * ADLs Independent * Equipment None * List name and contact numbers for known caregivers / representatives who currently or will assist patient after discharge: ALIX ANGELA - SPOUSE - [phone] * Verbal permission to speak to the caregivers and representatives has been obtained from the patient. Yes * Community resources currently utilized None * Additional services required to return to the preadmission environment? No * Can the patient safely return to the preadmission environment? Yes * Has this patient been hospitalized within the prior 30 days at any hospital? No Last DP export: 07/23/19 10:04 am Patient Name: NOMI ANGELA Page 22520 at 0849 All edits/amendments must be made on the electronic document DICTATION DATE: 07/24/19847 TRAILER TANK TRUCK DRIVER: CHANDRIKA 07/24/19847 RPT#: [id number] DC DATE:07/23/19 STATUS: DIS IN [facility] [address] [place] [address] END OF REPORT
== END 2019-07-23 13:12 | disposition home or self-care (01) | DRG 871 ==
LOC: D.ER 10:42 → D.M2 12:56
PROVIDERS: Family Medicine; ADMIT Family Medicine; ATTEND Family Medicine
DX: A41.9 Sepsis, unspecified organism (principal); J18.9 Pneumonia, unspecified organism; I48.20 Chronic atrial fibrillation, unspecified; D64.9 Anemia, unspecified; N40.0 Benign prostatic hyperplasia without lower urinary tract symptoms; I25.10 Atherosclerotic heart disease of native coronary artery without angina pectoris; E03.9 Hypothyroidism, unspecified; G47.33 Obstructive sleep apnea (adult) (pediatric)

== ENCOUNTER → 2019-10-05 13:01 | Outpatient (CLI) | payer BC, MEDICARE ==
[~2019-10-05 13:01] MED LIST changes: +AUGMENTIN 875-11 TAB PO; +MORPHINE PUMP; +TRAZODONE HCL150 MG PO
== END | disposition home or self-care (01) ==
LOC: D.US 13:00
PROVIDERS: ATTEND Internal Medicine Cardiovascular Disease
DX: R23.0 Cyanosis (principal); I70.213 Atherosclerosis of native arteries of extremities with intermittent claudication, bilateral legs; R60.0 Localized edema

== ENCOUNTER → 2019-11-23 08:14 | Outpatient (CLI) | payer MEDICARE, BC | END | disposition home or self-care (01) | LOC: D.CT 08:14 | PROVIDERS: ATTEND Internal Medicine Cardiovascular Disease | DX: R93.1 Abnormal findings on diagnostic imaging of heart and coronary circulation (principal) ==

== ENCOUNTER → 2019-12-01 08:56 | Outpatient (CLI) | payer MEDICARE, BC | END | disposition home or self-care (01) | LOC: D.CT 11-27 09:00 | PROVIDERS: ATTEND Internal Medicine Cardiovascular Disease | DX: R93.89 Abnormal findings on diagnostic imaging of other specified body structures (principal) ==

== ENCOUNTER 2020-02-02 16:38 | Inpatient (IN) | payer MEDICARE, BC ==
[~2020-02-02] VITALS: Ht 198.1 cm; Wt 86.2 kg
[2020-02-02 17:31] LABS: BASOPHILS 0.1 % (0-2); EOSINOPHILS 1.1 % (0-7); HEMATOCRIT 39.5 % (42.0-54.0); HEMOGLOBIN 13.6 g/dL (13.5-17.5); IMMATURE GRANULOCYTES 0.3 % (0-5); LYMPHOCYTES 11.1 % (15-50); MCH 31.6 pg (26.0-34.0); MCHC 34.4 g/dL (31.0-37.0); MCV 91.9 fL (80.0-100.0); MEAN PLATELET VOLUME 8.5 fL (7.4-10.4); MONOCYTES 7.4 % (2-11); PLATELET COUNT 140 10x3/uL (130-400); RDW 13.4 % (11.5-14.5); WBC 15.5 10x3/uL (4.8-10.8)
[2020-02-02 17:32] LABS: BILIRUBIN NEGATIVE (NEGATIVE); KETONE NEGATIVE (NEGATIVE); NITRITE NEGATIVE (NEGATIVE); UROBILINOGEN NORMAL mg/dL (< 2)
[2020-02-02 17:40] LABS: UDS - AMPHET NEGATIVE QUAL (NEGATIVE); UDS - BARB NEGATIVE QUAL (NEGATIVE); UDS - BENZO NEGATIVE QUAL (NEGATIVE); UDS - COCAINE NEGATIVE QUAL (NEGATIVE); UDS - OPIATE POSITIVE QUAL (NEGATIVE); UDS - PCP NEGATIVE QUAL (NEGATIVE); UDS - THC NEGATIVE QUAL (NEGATIVE)
[2020-02-02 17:46] LABS: CALC OSMOLALITY 273 mosm/kg (275-300); CALCIUM 9.2 mg/dL (8.5-10.1); CARBON DIOXIDE 29.7 mmol/L (21.0-32.0); CHLORIDE - SERUM 97 mmol/L (98-107); GLUCOSE 124 mg/dL (74-106); POTASSIUM - SERUM 3.9 mmol/L (3.5-5.1); SODIUM 135 mmol/L (136-145); UREA NITROGEN 22 mg/dL (7-18); eGFR NON AFRICAN AMERICAN 78 mL/min (90-120)
[2020-02-02 18:00] LABS: ALBUMIN 3.6 g/dL (3.4-5.0); ALKALINE PHOSPHATASE 54 U/L (30-120); ALT (SGPT) 22 U/L (10-68); BILIRUBIN - TOTAL 0.86 mg/dL (0.2-1.3); PROTEIN - SERUM 7.6 g/dL (6.4-8.2); THYROID STIMULATING HORMONE 0.77 uIU/mL (0.36-3.74)
--- NOTE | 2020-02-02 18:20 | NUR ---
PT AMBULATORY TO BATHROOM AT THIS TIME, STATES "I NEED TO POOP". PT WITH SOILED BRIEF AND LINENS. QING CARE PROVIDED AND LINENS REPLACED. GIVEN WATER PER REQUEST AND ASSISTED INTO POSITION OF COMFORT, DENIES FURTHER NEEDS.
--- NOTE | 2020-02-02 18:54 | NUR ---
PT TO CT VIA STRETCHER WITH REGISTERED MAIL CLERK.
--- NOTE | 2020-02-02 19:02 | NUR ---
PT BACK TO ROOM.
--- NOTE | 2020-02-02 19:40 | NUR ---
PT AMBUALTORY TO BATHROOM AT THIS TIME. BRIEF AND LINENS SOILED WITH BM. PT ASSISTED WITH QING CARE AND GIVEN NEW BRIEF. BED LINENS CHANGED. PT ASSISTED BACK TO BED. DENIES FURTHER NEEDS.
--- NOTE | 2020-02-02 20:30 | NUR ---
PT GIVEN WARM BLANKET PER REQUEST. DENIES FURTHER NEEDS.
--- NOTE | 2020-02-02 21:15 | NUR ---
PT CALLED TO GIVE UPDATE ON PT CONDITION. QUESTIONS ANSWERED TO SATISFACTION. ASKS IF SHE CAN SPEAK TO PT.
[2020-02-02 21:20] VITALS: BP 118/74
--- NOTE | 2020-02-02 21:22 | NUR ---
PT CALLED FROM PHONE IN PT ROOM. PT SPEAKING WITH HIS AT THIS TIME.
--- NOTE | 2020-02-02 21:45 | NUR ---
PT BRIEF CHANGED AND QING CARE PROVIDED. ASSISTED TO POSITION OF COMFORT, DENIES FURTHER NEEDS.
--- NOTE | 2020-02-02 22:07 | NUR ---
REPORT GIVEN TO JEAN CLAUDE ANDERSON USING SBAR
--- NOTE | 2020-02-02 22:22 | NUR ---
PT NOTIFIED OF ROOM ASSIGNMENT.
[2020-02-02] MEDS ORDERED: LISINOPRIL5 MG PO (23:10)
[2020-02-02] MEDS ORDERED: BAYER CHEWABLE81 MG PO (23:11)
--- NOTE | 2020-02-02 23:20 | NUR ---
PT AMBULATORY TO BATHROOM AT THIS TIME. QING CARE PROVIDED AND NEW BRIEF PUT ON.
--- NOTE | 2020-02-02 23:30 | NUR ---
RECEIVED PT TO FLOOR, ORIENTED TO ROOM
--- NOTE | 2020-02-02 23:30 | NUR ---
PT OLIMPIA ALARM ON, REFUSES TO USE CALL LIGHT, REINFORCED TEACHING FOR CALL LIGHT AND NEEDING HELP BEFORE GETTING OUT OF BED
[2020-02-02] MEDS ORDERED: DILAUDID4 MG PO (23:52)
[2020-02-03 00:01] VITALS: BP 141/75; BMI 22.0
--- NOTE | 2020-02-03 02:38 | NUR ---
REFUSED SECOND ENEMA, UNABLE TO URINATE, BLADDER SCANNER SHOWED 504ML
--- NOTE | 2020-02-03 04:04 | NUR ---
STARIGHT CATH 800 OUT
[2020-02-03 04:30] VITALS: BP 176/80
--- NOTE | 2020-02-03 04:55 | NUR ---
TRIED TO GIVE ANOTHER ENEMA PT REFUSED AND STATED HE WOULDN'T GET ANOTHER ONE TILL LATER THIS MORNING OR AFTERNOON
--- NOTE | 2020-02-03 06:25 | NUR ---
PT REFUSED TO WEAR ASSISTANT FITNESS MANAGER
[2020-02-03 08:00] VITALS: BP 102/68
--- NOTE | 2020-02-03 08:24 | NUR ---
UP IN ROOM, INCONT STOOL, CONT TO MONITOR, CONFUSED
--- NOTE | 2020-02-03 10:33 | NUR ---
CONFUSED, WALKING ABOUT ROOM, INCONT STOOL DOWN HIS LEGS AND ON THE BED AND FLOOR, PT STATES THAT HE WILL INSERT HIS SUPPOSITORIES THEN GETS UP AND GOES TO THE BATHROOM, INSTRUCTED TO PLEASE HOLD SUPPOSITORIES LONG POSSIBLE
[2020-02-03 11:42] LABS: BASOPHILS 0.1 % (0-2); EOSINOPHILS 0.1 % (0-7); HEMATOCRIT 36.9 % (42.0-54.0); HEMOGLOBIN 12.4 g/dL (13.5-17.5); IMMATURE GRANULOCYTES 0.3 % (0-5); LYMPHOCYTES 9.6 % (15-50); MCH 30.9 pg (26.0-34.0); MCHC 33.6 g/dL (31.0-37.0); MEAN PLATELET VOLUME 8.3 fL (7.4-10.4); MONOCYTES 9.1 % (2-11); NEUTROPHILS 80.8 % (40-80); PLATELET COUNT 146 10x3/uL (130-400); RBC 4.01 10x6/uL (4.20-6.10); RDW 13.6 % (11.5-14.5); WBC 16.9 10x3/uL (4.8-10.8)
[2020-02-03 12:00] VITALS: BP 105/63
[2020-02-03 12:04] LABS: ALBUMIN 3.4 g/dL (3.4-5.0); ANION GAP 12.8 mmol/L (8-16); BILIRUBIN - TOTAL 1.59 mg/dL (0.2-1.3); CARBON DIOXIDE 27.8 mmol/L (21.0-32.0); CREATININE - SERUM 1.1 mg/dL (0.6-1.3); MAGNESIUM - SERUM 1.8 mg/dL (1.8-2.4); PHOSPHOROUS 2.4 mg/dL (2.5-4.9); POTASSIUM - SERUM 3.6 mmol/L (3.5-5.1); PROTEIN - SERUM 7.3 g/dL (6.4-8.2); THYROID STIMULATING HORMONE 0.63 uIU/mL (0.36-3.74)
--- NOTE | 2020-02-03 13:03 | NUR ---
ASKING ABOUT NEXT MOVE, WILL GIVE PT SS ENEMA ORDERED BY LESTER TURCIOS
[2020-02-03 14:40] VITALS: Ht 198.1 cm; Wt 86.2 kg
[2020-02-03 16:00] VITALS: BP 117/77
--- NOTE | 2020-02-03 19:49 | NUR ---
PATIENT RESTING IN BED WITH EYES CLOSED AND NO S/S OF DISTRESS. BED IN LOWEST POSITION AND CALL LIGHT WITHIN REACH. WILL CONTINUE TO MONITOR.
[2020-02-03 20:00] VITALS: BP 134/74
--- NOTE | 2020-02-03 21:02 | NUR ---
ADMINISTERED MEDS PER ORDERS. PATIENT DENIES NEEDS. WILL CONTINUE TO MONITOR.
--- NOTE | 2020-02-03 23:52 | NUR ---
PAGEIsrrael COOPER, ON-CALL IN REGARDS TO PATIENT REQUEST FOR TUMS
[2020-02-04 04:00] VITALS: BP 121/64
--- NOTE | 2020-02-04 07:50 | NUR ---
XRAY HERE TO DO BARRIUM ENEMA, PT STATES THAT HE HAS HAD SEVERAL BM IN THE NIGHT, KUB ORDERED TO CK ABD AND WILL REVIEW
--- NOTE | 2020-02-04 07:56 | NUR ---
PT WAS SCHEDULED FOR A BARIUM ENEMA ON 02/04/20 FOR IMPACTION, BUT THE PT REFUSED EXAM AND STATED HE HAD BOWEL MOVEMENTS EVERY HOUR THE NIGHT BEFORE. DR GAYLE ADVISED A KUB FOR ASSESSMENT. KUB TAKEN 02/03
[2020-02-04 08:21] LABS: BASOPHILS 0 % (0-2); EOSINOPHILS 0.2 % (0-7); HEMATOCRIT 32.6 % (42.0-54.0); HEMOGLOBIN 11.2 g/dL (13.5-17.5); IMMATURE GRANULOCYTES 0.4 % (0-5); LYMPHOCYTES 12.2 % (15-50); MCH 31.1 pg (26.0-34.0); MCHC 34.4 g/dL (31.0-37.0); MCV 90.6 fL (80.0-100.0); MEAN PLATELET VOLUME 8.4 fL (7.4-10.4); MONOCYTES 7.5 % (2-11); NEUTROPHILS 79.7 % (40-80); PLATELET COUNT 122 10x3/uL (130-400); RDW 13.5 % (11.5-14.5)
[2020-02-04 08:23] LABS: WBC 10.9 10x3/uL (4.8-10.8)
[2020-02-04 08:35] LABS: CALC OSMOLALITY 270 mosm/kg (275-300); CALCIUM 8.6 mg/dL (8.5-10.1); CARBON DIOXIDE 27.2 mmol/L (21.0-32.0); CHLORIDE - SERUM 99 mmol/L (98-107); CREATININE - SERUM 0.9 mg/dL (0.6-1.3); GLUCOSE 114 mg/dL (74-106); MAGNESIUM - SERUM 1.6 mg/dL (1.8-2.4); PHOSPHOROUS 2.9 mg/dL (2.5-4.9); POTASSIUM - SERUM 3.6 mmol/L (3.5-5.1); SODIUM 134 mmol/L (136-145); eGFR NON AFRICAN AMERICAN 88 mL/min (90-120)
[2020-02-04 08:42] LABS: UREA NITROGEN 19 mg/dL (7-18)
[2020-02-04 09:30] VITALS: BP 124/65
[2020-02-04] MEDS ORDERED: LEVOFLOXACIN500 MG PO (11:43)
[2020-02-04] MEDS ORDERED: FLORAJEN3 CAPS460 MG PO (11:43)
[2020-02-04] MEDS ORDERED: COLACE100 MG PO (11:43)
[2020-02-04] MEDS ORDERED: FLAGYL500 MG PO (11:43)
[2020-02-04] MEDS ORDERED: MIRALAX17 GM PO (11:43)
--- NOTE | 2020-02-04 15:15 | NUR ---
IV REMOVED, TIP INTACT, REVIEWED DC ORDERS, VOICED NO CONCERNS, TAKEN TO PRIVATE VEHICLE
--- NOTE | 2020-02-04 19:40 | MORECARE ---
CASE MANAGEMENT DISCHARGE SUMMARY PATIENT: NOMI ANGELA UNIT: [id number] ADM DATE: 02/02/20 AGE: 74 : 47 SEX: M ROOM/BED: D.2239 AUTHOR: MARGY MURRAY PHYSICIAN: REFERRING PHYSICIAN: IRAIS NIXON MD DATE OF SERVICE: 02/04/20 Discharge Plan Patient Name: NOMI ANGELA [facility] [facility] 1945 Planned Disposition: Home Anticipated Discharge Date: 02/04/20 Discharge Date: 02/04/2020 Expected LOS: 2 Initial Reviewer: [email or web address] Initial Review Date: 02/04/2020 Generated: 02/04/20 8:39 pm Patient Name: NOMI ANGELA Page 37892 at 1940 All edits/amendments must be made on the electronic document DICTATION DATE: 02/04/201938 BAGGER MEAT: CHANDRIKA 02/04/201938 RPT#: [id number] DC DATE:02/04/20 STATUS: DIS IN [facility] [address] [place] [address] END OF REPORT
--- NOTE | 2020-02-04 19:46 | MORECARE ---
CASE MANAGEMENT DISCHARGE SUMMARY PATIENT: NOMI REDMOND UNIT: [id number] ADM DATE: 02/02/20 AGE: 74 : 47 SEX: M ROOM/BED: D.2239 AUTHOR: TERRI,DOC PHYSICIAN: REFERRING PHYSICIAN: IRAIS NIXON MD DATE OF SERVICE: 02/04/20 Discharge Plan Patient Name: NOMI REDMOND Facility: [facility]:[place] : 1945 Planned Disposition: Home Anticipated Discharge Date: 02/04/20 Discharge Date: 02/04/2020 Expected LOS: 2 Initial Reviewer: [email or web address] Initial Review Date: 02/04/2020 Generated: 02/04/20 8:46 pm Comments DCP- Discharge Planning Updated by [email or web address]: Milind Baig on 02/04/20 6:[address] Patient Name: NMOI REDMOND Admission Status: ER Accout number: [id number] Admission Date: 02-02-2020 : 1945 Admission Diagnosis: Attending: IRAIS NIXON Current LOS: 2 Anticipated DC Date: 02-04-2020 Planned Disposition: Home Primary Insurance: MEDICARE A & B Discharge Planning Comments: CM met with patient for DC planning. Patient is in agreement with DC Plan. Patient lives at home with his spouse, Alix Redomnd ([phone]). Patient has 2 steps to navigate to enter the home and feels that it is safe. PCP: Dr. Nixon. Pharmacy: [facility] on [address]. DME: [employer]. Emergency contact: his , Alix Redmond. CM discussed HHS, OP Therapy, SNF, Rehab. Patient voices no other needs at this time. DC IMM delivered, explained, signed by the patient, and placed in chart. Signed form also left with the patient.CM will follow and assist PRN. Legal Department Manager: Milind Baig DCPIA - Discharge Planning Initial Assessment Updated by [email or web address]: Milind Baig on 02/04/20 7:41 pm * Is the patient Alert and Oriented? Yes * How many steps to enter\exit or inside your home? * PCP Dr. Nixon * Pharmacy [facility] on [address] * Preadmission Environment Home with Family * ADLs Independent * Equipment Cane Walker * Other Equipment n/a * List name and contact numbers for known caregivers / representatives who currently or will assist patient after discharge: Alix Redmond, spouse, * Verbal permission to speak to the caregivers and representatives has been obtained from the patient. Yes * Community resources currently utilized None * Please name any agencies selected above. n/a * Additional services required to return to the preadmission environment? No * Can the patient safely return to the preadmission environment? Yes * Has this patient been hospitalized within the prior 30 days at any hospital? No Coverage Notice Reviewer: [email or web address] Rachel Baig Notice Issued Date-Time: 02/04/2020 12:15 Notice Type: IM Discharge Notice Notice Delivered To: Patient Relationship to Patient: Self Manager Of Marketing Name: Delivery Method: HAND - Hand Delivered Merry Days: Prior Verbal Notification: Recipient Understood Notice: Yes Recipient Signature: Yes Med Rec Note Co-signed by Attending: Coverage Notice Comment: DC IMM delivered, explained, signed by the patient, and placed in chart. Signed form also left with the patient. Last DP export: 02/04/20 6:40 Patient Name: NOMI REDMOND Page 10578 at 1944 All edits/amendments must be made on the electronic document DICTATION DATE: 02/04/201945 DISPLAY FABRICATOR: CHANDRIKA 02/04/201945 RPT#: [id number] DC DATE:02/04/20 STATUS: DIS IN [facility] [address] [place] [address] END OF REPORT
--- NOTE | 2020-02-05 09:08 | MORECARE ---
CASE MANAGEMENT DISCHARGE SUMMARY PATIENT: NOMI REDMOND UNIT: [id number] ADM DATE: 02/02/20 AGE: 74 : [birth year] SEX: M ROOM/BED: D.2239 AUTHOR: TERRI,DOC PHYSICIAN: REFERRING PHYSICIAN: IRAIS NIXON MD DATE OF SERVICE: 02/05/20 Discharge Plan Patient Name: NOMI REDMOND Facility: [facility]:[place] : 1945 Planned Disposition: Home Anticipated Discharge Date: 02/04/20 Discharge Date: 02/04/2020 Expected LOS: 2 Initial Reviewer: [email or web address] Initial Review Date: 02/04/2020 Generated: 02/05/20 10:08 am Comments DCP- Discharge Planning Updated by [email or web address]: Milind Baig on 02/04/20 6:[address] Patient Name: NOMI REDMOND Admission Status: ER Accout number: [id number] Admission Date: 02-02-2020 : 1945 Admission Diagnosis: Attending: IRAIS NIXON Current LOS: 2 Anticipated DC Date: 02-04-2020 Planned Disposition: Home Primary Insurance: MEDICARE A & B Discharge Planning Comments: CM met with patient for DC planning. Patient is in agreement with DC Plan. Patient lives at home with his spouse, Alix Redmond ([phone]). Patient has 2 steps to navigate to enter the home and feels that it is safe. PCP: Dr. Nixon. Pharmacy: [facility] on [address]. DME: [employer]. Emergency contact: his , Alix Redmond. CM discussed HHS, OP Therapy, SNF, Rehab. Patient voices no other needs at this time. DC IMM delivered, explained, signed by the patient, and placed in chart. Signed form also left with the patient.CM will follow and assist PRN. School Admissions Representative: Milind Baig DCPIA - Discharge Planning Initial Assessment Updated by [email or web address]: Milind Baig on 02/04/20 7:41 pm * Is the patient Alert and Oriented? Yes * How many steps to enter\exit or inside your home? * PCP Dr. Nixon * Pharmacy [facility] on [address] * Preadmission Environment Home with Family * ADLs Independent * Equipment Cane Walker * Other Equipment n/a * List name and contact numbers for known caregivers / representatives who currently or will assist patient after discharge: Alix Redmond, spouse, * Verbal permission to speak to the caregivers and representatives has been obtained from the patient. Yes * Community resources currently utilized None * Please name any agencies selected above. n/a * Additional services required to return to the preadmission environment? No * Can the patient safely return to the preadmission environment? Yes * Has this patient been hospitalized within the prior 30 days at any hospital? No Coverage Notice Reviewer: [email or web address] Rachel Baig Notice Issued Date-Time: 02/04/2020 12:15 Notice Type: IM Discharge Notice Notice Delivered To: Patient Relationship to Patient: Self Palm Gatherer Name: Delivery Method: HAND - Hand Delivered Merry Days: Prior Verbal Notification: Recipient Understood Notice: Yes Recipient Signature: Yes Med Rec Note Co-signed by Attending: Coverage Notice Comment: DC IMM delivered, explained, signed by the patient, and placed in chart. Signed form also left with the patient. Last DP export: 02/04/20 6:46 Patient Name: NOMI REDMOND Page [id number] at 0908 All edits/amendments must be made on the electronic document DICTATION DATE: 02/05/20907 DIRECTOR PROSPECT: CHANDRIKA 02/05/20907 RPT#: [id number] DC DATE:02/04/20 STATUS: DIS IN [facility] [address] [place] [address] END OF REPORT
== END 2020-02-04 15:15 | disposition home or self-care (01) | DRG 388 ==
LOC: D.ER 16:38 → D.EDHOLD 20:14 → D.MS 21:55
PROVIDERS: Emergency Medicine; Family Medicine; ADMIT Family Medicine; ATTEND Family Medicine
DX: K56.41 Fecal impaction (principal); G93.41 Metabolic encephalopathy; K52.9 Noninfective gastroenteritis and colitis, unspecified; I10 Essential (primary) hypertension; E78.5 Hyperlipidemia, unspecified; E03.9 Hypothyroidism, unspecified; G47.33 Obstructive sleep apnea (adult) (pediatric); N40.0 Benign prostatic hyperplasia without lower urinary tract symptoms; G89.29 Other chronic pain; M19.90 Unspecified osteoarthritis, unspecified site; Z95.0 Presence of cardiac pacemaker

== ENCOUNTER → 2020-10-09 07:36 | Outpatient (CLI) | payer MEDICARE, BC ==
[2020-02-03 14:40] VITALS: BMI 21.9
[~2020-10-09 07:36] MED LIST changes: +COLACE100 MG PO; +DILAUDID4 MG PO; +FLAGYL500 MG PO; +LEVOFLOXACIN500 MG PO; +MIRALAX17 GM PO
== END | disposition home or self-care (01) ==
LOC: D.NM 09-26 11:30
PROVIDERS: ATTEND Nurse Practitioner Family
DX: Z96.641 Presence of right artificial hip joint (principal)

== ENCOUNTER → 2020-10-15 13:27 | Outpatient (CLI) | payer MEDICARE, BC ==
[2020-02-03 14:40] VITALS: BMI 21.9
== END | disposition home or self-care (01) ==
LOC: D.CT 10:00
PROVIDERS: ATTEND Orthopaedic Surgery
DX: S22.49XA Multiple fractures of ribs, unspecified side, initial encounter for closed fracture (principal)